=== PATIENT | male | born 1945 | race Caucasian/White ===

== ENCOUNTER 2022-08-15 11:56 | Outpatient (CLI) | payer OTHER, SELFPAY ==
[2022-08-15 22:29] LABS: Albumin* 3.7 g/dL (3.3-5.0); Chloride* 110 mmol/L (96-114); Sodium* 140 mmol/L (135-149)
[2022-08-15 22:32] LABS: Alanine Aminotransferase* 28 U/L (4-50); Alkaline Phosphatase* 66 U/L (40-150); Aspartate Amino Transferase* 29 U/L (12-35); Bilirubin Total* 0.6 mg/dL (0.1-1.5); Blood Urea Nitrogen* 31 mg/dL (7-30); Carbon Dioxide* 20 mmol/L (20-32); Creatinine* 1.1 mg/dL (0.5-1.5); Estimated Glomerular Filt Rate 70 ml/min; Glucose* 104 mg/dL (60-115)
[2022-08-15 22:33] LABS: Calcium* 9.3 mg/dL (8.4-10.6)
== END 2022-08-15 11:57 | disposition home or self-care (01) ==
PROVIDERS: PCP Family Medicine; Visit Provider Family Medicine
DX: E03.9 Hypothyroidism, unspecified (principal); I48.20 Chronic atrial fibrillation, unspecified; R19.7 Diarrhea, unspecified; R79.89 Other specified abnormal findings of blood chemistry
CPT/HCPCS: 80053; 84443

== ENCOUNTER 2022-08-17 11:54 | Outpatient (CLI) | payer OTHER, SELFPAY ==
[2022-08-17 12:21] LABS: C.Difficile NO RESULT (Negative); CDIFFEPI 027 NO RESULT (Negative)
[2022-08-19 20:26] LABS: Lactoferrin, Fecal by ELISA Negative (Negative)
[2022-08-20 01:05] LABS: Ova and Parasite, Fecal Negative (Negative)
[2022-08-22 13:37] LABS: Cryptosporidium by PCR Not Detected; Cyclospora cayetanensis by PCR Not Detected; Dientamoeba fragilis by PCR Not Detected; Entamoeba histolytica by PCR Not Detected; Giardia by PCR Not Detected
== END 2022-08-17 11:55 | disposition home or self-care (01) ==
PROVIDERS: PCP Family Medicine; Visit Provider Family Medicine
DX: R19.7 Diarrhea, unspecified (principal)
CPT/HCPCS: 83630; 87045; 87046; 87077; 87177; 87209; 87425; 87427; 87493; 87505; 87798

== ENCOUNTER 2022-08-20 09:04 | Emergency (ER) | payer OTHER, SELFPAY ==
[2022-08-20 09:10] VITALS: BP 124/71; PULSE 73; RESP 18; TEMP 36.3; O2SAT 98; BMI 27.3
--- NOTE | 2022-08-20 09:28 | CRLHL7_ITS ---
For Patients: As a result of the Century Cures Act, medical imaging exams and procedure reports are released immediately into your electronic medical record. You may view this report before your referring provider. If you have questions, please contact your health care provider. Indication: Shortness of breath Technique: Two-view chest x-ray Comparison: Chest x-ray 05/14/2021 Findings: Normal cardiac mediastinal silhouette. Median sternotomy clips project over the central chest. Opacity of the right lower chest may be a combination of effusion with probable underlying atelectasis and/or consolidation. Dictated by Michelle Mccoy MD @ 08/20/2022 10:41:54 AM (Electronically Signed)
--- NOTE | 2022-08-20 09:30 | ED_ITS ---
HPI - General Adult General Chief complaint: Shortness of Breath/Dyspnea Stated complaint: short of breath after lung transplant Time Seen by Provider: 08/20/22 09:20 History of Present Illness HPI narrative: This 76-year-old male comes in reporting shortness of breath. He states that he began to feel more short of breath over the past couple days. He has been coughing. He has a history of lung transplant which was done about 3 months ago. He is on anticoagulants and anti rejection medications including the steroid. He does not report any fever. He does arrive with normal vital signs. Related Data Home Medications Medication Instructions Recorded Confirmed levothyroxine 125 mcg capsule 125 mcg PO QDAY 03/31/22 08/20/22 sotalol 80 mg tablet 80 mg PO BID 03/31/22 08/20/22 Diabetic Test Strips 08/15/22 08/15/22 apixaban 2.5 mg tablet (Eliquis) 2.5 mg PO BID 08/15/22 08/20/22 cholecalciferol (vitamin D3) 50 50 mcg PO QDAY 08/15/22 08/20/22 mcg (2,000 unit) capsule diabetic supplies, miscellan. 08/15/22 08/15/22 diabetic supplies, miscellan. 08/15/22 08/15/22 guaifenesin 600 mg tablet, 600 mg PO BID 08/15/22 08/20/22 extended release 12 hr (Mucinex) itraconazole 100 mg capsule 200 mg PO BID 08/15/22 08/20/22 magnesium oxide 400 mg (241.3 mg 400 mg PO BID 08/15/22 08/20/22 magnesium) tablet metformin 500 mg tablet,extended 1,000 mg PO DAILY 08/15/22 08/20/22 release 24 hr mycophenolate mofetil 250 mg 750 mg PO BID 08/15/22 08/20/22 capsule (CellCept) prednisone 5 mg tablet 5 mg PO QDAY 08/15/22 08/20/22 sulfamethoxazole 400 1 tab PO QDAY 08/15/22 08/20/22 mg-trimethoprim 80 mg tablet (Bactrim) tacrolimus 0.5 mg capsule, 0.5 mg PO QDAY 08/15/22 08/20/22 immediate-release valganciclovir 450 mg tablet 450 mg PO QDAY 08/15/22 08/20/22 (Valcyte) Previous Rx's Medication Instructions Recorded pantoprazole 40 mg tablet,delayed 40 mg PO QDAY #30 tabs 08/19/22 release rosuvastatin 5 mg tablet 5 mg PO QDAY #90 tabs 08/19/22 acetaminophen 300 mg-codeine 30 mg 1 tab PO Q6H PRN pain #20 tabs 08/20/22 tablet Allergies Allergy/AdvReac Type Severity Reaction Status Date / Time Sulfa (Sulfonamide Allergy Severe unknown Verified 08/20/22 09:16 Antibiotics) sulfamethoxazole Allergy Severe Verified 08/20/22 09:16 [From Sulfamethoxazole-Trimethoprim] ciprofloxacin Allergy Mild Rash Verified 08/20/22 09:16 latex Allergy Unknown Rash Verified 08/20/22 09:16 levofloxacin AdvReac Unknown generalized Verified 08/20/22 09:16 muscle stiffness Review of Systems Status of ROS: Reports: 10 or more systems reviewed and unremarkable except as noted in History and below Narrative: Constitutional: No fevers, no weight gain or loss. Eyes: No discharge. No vision changes. HENT: No congestion, no sore throat, no ear pain. Cardiovascular: No chest pain, no palpitations. Respiratory: Shortness of breath. Frequent coughing. Gastrointestinal: No abdominal pain, no vomiting, no diarrhea. Genitourinary: No dysuria, no hematuria. Musculoskeletal: Normal range of motion. Skin: No rashes, no pruritis. Neurological: No dizziness, weakness, sensory change, speech change. Endo/Heme/Allergies: No bruising or bleeding. No polydipsia. Pysch: no suicidality, no anxiety, no insomnia. All other systems reviewed and are negative. [facility] Medical History (Updated 08/20/22 @ 11:23 by Skyler Contreras MD) Chest pain GERD (gastroesophageal reflux disease) Gout Hepatitis Iatrogenic pneumothorax Knee pain On prednisone therapy Pneumothorax, acute Renal lithiasis Surgical History (Updated 08/20/22 @ 11:23 by Skyler Contreras MD) History of tonsillectomy History of vasectomy Lung transplant recipient S/P blepharoplasty S/P hip replacement Family History (Updated 03/15/22 @ 09:20 by Carl Flores) Father Alcohol abuse Depression Prostate carcinoma Schizophrenia Brother Alcohol abuse Diverticulitis of colon Prostate carcinoma Sister Alcohol abuse Breast cancer Depression Schizophrenia Mother Diabetes Diverticulitis of colon Stroke Social History Smoking Status: Never smoker How often do you have a drink containing alcohol: never AUDIT-C Alcohol total score: 0 Non-prescribed substance use: denies use Exam Narrative: Exam Narrative: Constitutional: Well-developed, well-nourished, no acute distress. HEENT: Normocephalic, atraumatic. Neck: Normal range of motion. Nontender. Supple. Heart: Regular. No murmurs. Normal rate. Intact distal pulses. Lungs: Clear to auscultation. No chest discomfort. No wheezes, rhonchi, or rales. Frequent coughing. Abdomen: Normal bowel sounds. Nontender. No rebound tenderness. Genitalia: Deferred. Back: No midline tenderness. Normal range of motion. Extremities: Normal range of motion. No injury. Skin: Intact. No rash. Warm. No erythema or pallor. Neurologic: No altered sensation. No weakness. Alert and oriented. Psychiatric: No suicidality. No anxiety or depression. No insomnia. Nursing notes and vitals signs are reviewed. Const: Vital Signs, click to edit/add: Vital Signs - 24 hr 08/20/22 09:10 08/20/22 10:28 Temperature 97.3 F L Pulse Rate [Right Pulse Oximeter] 73 Respiratory Rate 18 22 Blood Pressure [Ri ght Upper Arm] 124/71 Pulse Oximetry 98 96 Oxygen Delivery Me thod Room Air Room Air Course Vital Signs Vital signs: Initial Vital Signs Temperature 97.3 F L 08/20/22 09:10 Temperature Source Temporal Artery Scan 08/20/22 09:10 Pulse Rate 73 08/20/22 09:10 Respiratory Rate 18 08/20/22 09:10 Blood Pressure 124/71 08/20/22 09:10 Blood Pressure Mean 88 08/20/22 09:10 Blood Pressure Position Sitting 08/20/22 09:10 Pulse Oximetry 98 08/20/22 09:10 Oxygen Delivery Method 08/20/22 09:10 Vital Signs Temperature 97.3 F L 08/20/22 09:10 Pulse Rate 73 08/20/22 09:10 Respiratory Rate 18 08/20/22 09:10 Blood Pressure 124/71 08/20/22 09:10 Pulse Oximetry 98 08/20/22 09:10 Oxygen Delivery Method 08/20/22 09:10 Temperature 97.3 F L 08/20/22 09:10 Pulse Rate 73 08/20/22 09:10 Respiratory Rate 22 08/20/22 10:28 Blood Pressure 124/71 08/20/22 09:10 Pulse Oximetry 96 08/20/22 10:28 Oxygen Delivery Method 08/20/22 10:28 Medical Decision Making MDM Narrative Medical decision making narrative: This patient comes in with cough symptoms over the past day or 2. He had bilateral lung transplant because of pulmonary fibrosis. This transplant occurred about 3 months ago. Today his vital signs are in normal range. His heart rate is 61 beats per minute and his oximetry on room air is at 97%. He is not using accessory muscles for breathing but does have frequent coughing. He does use CPAP at night. EKG and troponin results returned normal. Lab results show hemoglobin at 9.8. Testing for COVID, influenza, and RSV returned negative. Chest x-ray does show some edema in the right lower lung. I advised the patient to follow-up with his pulmonary team in this regard. He did receive a prescription for Tylenol 3 for cough suppressant benefit. Lab Data Labs: Lab Results 08/20/22 08/20/22 08/20/22 Range/Units 09:23 09:29 09:42 WBC 9.30 (4.50-11.00) K/uL RBC 3.22 L (4.30-5.90) m/uL Hgb 9.8 L (13.5-17.5) gm/dL Hct 30.7 L (37.0-53.0) % MCV 95 (80-100) fL MCH 30 (26-34) pg MCHC 32 (32-36) gm/dL RDW Coeff of Hilaria 14.7 (11.5-15.5) % Plt Count 189 (140-440) K/uL Neut % (Auto) 77.4 H (42.0-72.0) % Lymph % (Auto) 5.6 L (20-44) % [place] % (Auto) 8.7 (0.0-11.0) % Eos % (Auto) 1.2 (0.0-7.0) % Baso % (Auto) 0.6 (0.0-3.0) % Neut # (Auto) 7.20 H (1.7-7.0) K/uL Lymph # (Auto) 0.50 L (0.90-2.90) K/uL [place] # (Auto) 0.80 (0.00-0.90) K/UL Eos # (Auto) 0.11 (0.00-0.50) K/uL Baso # (Auto) 0.06 (0.00-0.30) K/uL Abs Immat Gran (auto) 0.60 H (0.00-0.30) K/uL Imm/Tot Granulo (auto) 6.5 % Sodium (135-149) mmol/L Potassium (3.6-5.1) mmol/L Chloride (96-114) mmol/L Carbon Dioxide (20-32) mmol/L BUN (7-30) mg/dL Creatinine (0.5-1.5) mg/dL Estimated Creat Clear Estimated GFR ml/min Glucose (60-115) mg/dL Calcium (8.4-10.6) mg/dL C-Reactive Protein (0.5-1.0) mg/dL SARS-CoV-2 (PCR) Negative SARS-CoV-2 (Negative) Influenza Type A (PCR) Negative PCR FLU A (Negative) Influenza Type B (PCR) Negative PCR FLU B (Negative) RSV (PCR) Negative PCR RSV (Negative) POC Troponin I 0.01 (0.01-0.04) ng/ml 08/20/22 Range/Units 09:42 WBC (4.50-11.00) K/uL RBC (4.30-5.90) m/uL Hgb (13.5-17.5) gm/dL Hct (37.0-53.0) % MCV (80-100) fL MCH (26-34) pg MCHC (32-36) gm/dL RDW Coeff of Hilaria (11.5-15.5) % Plt Count (140-440) K/uL Neut % (Auto) (42.0-72.0) % Lymph % (Auto) (20-44) % [place] % (Auto) (0.0-11.0) % Eos % (Auto) (0.0-7.0) % Baso % (Auto) (0.0-3.0) % Neut # (Auto) (1.7-7.0) K/uL Lymph # (Auto) (0.90-2.90) K/uL [place] # (Auto) (0.00-0.90) K/UL Eos # (Auto) (0.00-0.50) K/uL Baso # (Auto) (0.00-0.30) K/uL Abs Immat Gran (auto) (0.00-0.30) K/uL Imm/Tot Granulo (auto) % Sodium 139 (135-149) mmol/L Potassium 4.5 (3.6-5.1) mmol/L Chloride 111 (96-114) mmol/L Carbon Dioxide 22 (20-32) mmol/L BUN 31 H (7-30) mg/dL Creatinine 1.2 (0.5-1.5) mg/dL Estimated Creat Clear 55.76 Estimated GFR 63 ml/min Glucose 89 (60-115) mg/dL Calcium 8.7 (8.4-10.6) mg/dL C-Reactive Protein 0.7 (0.5-1.0) mg/dL SARS-CoV-2 (PCR) (Negative) Influenza Type A (PCR) (Negative) Influenza Type B (PCR) (Negative) RSV (PCR) (Negative) POC Troponin I (0.01-0.04) ng/ml Imaging Data Chest x-ray: Radiologist's impression: Normal cardiac mediastinal silhouette. Median sternotomy clips project over the central chest. Opacity of the right lower chest may be a combination of effusion with probable underlying atelectasis and/or consolidation. ECG Data Attestation: I personally reviewed and interpreted this ECG as follows: Interpretation: Normal sinus rhythm. Rate is 61 beats per minute. There are no ST or T-wave abnormalities. Discharge Plan Discharge Clinical Impression: Cough, Lung transplant recipient Patient Disposition: Home, Self-Care Condition: Unchanged Additional Instructions: Take medication as needed and indicated. Follow up with primary physician or pulmonology team. Return if worsening. Prescriptions: New acetaminophen-codeine 300-30 mg tablet 1 tab PO Q6H PRN (Reason: pain) Qty: 20 0RF No Action levothyroxine 125 mcg capsule 125 mcg PO QDAY sotalol 80 mg tablet 80 mg PO BID metformin 500 mg tablet extended release 24 hr 1,000 mg PO DAILY (DME) Diabetic Test Strips Misc See Rx Instructions .ROUTE Rx Instructions: As directed (DME) diabetic supplies, miscellan. Misc See Rx Instructions .ROUTE Rx Instructions: As directed (DME) diabetic supplies, miscellan. Misc See Rx Instructions .ROUTE Rx Instructions: As directed sulfamethoxazole-trimethoprim [Bactrim] 400-80 mg tablet 1 tab PO QDAY mycophenolate mofetil [CellCept] 250 mg capsule 750 mg PO BID Eliquis 2.5 mg tablet 2.5 mg PO BID itraconazole 100 mg capsule 200 mg PO BID Rx Instructions: must administer with a meal/food magnesium oxide 400 mg (241.3 mg magnesium) tablet 400 mg PO BID prednisone 5 mg tablet 5 mg PO QDAY guaifenesin [Mucinex] 600 mg tablet extended release 12hr 600 mg PO BID cholecalciferol (vitamin D3) 50 mcg (2,000 unit) capsule 50 mcg PO QDAY tacrolimus 0.5 mg capsule 0.5 mg PO QDAY valganciclovir [Valcyte] 450 mg tablet 450 mg PO QDAY rosuvastatin 5 mg tablet 5 mg PO QDAY Qty: 90 3RF pantoprazole 40 mg tablet,delayed release (DR/EC) 40 mg PO QDAY Qty: 30 12RF Follow Up/Referrals: Bryce Hicks MD [Primary Care Provider] - Stand Alone Forms: [address] [facility] Info Instructions
[2022-08-20 09:57] LABS: Basophils Absolute Auto 0.06 K/uL (0.00-0.30); Basophils Percent Auto 0.6 % (0.0-3.0); Eosinophils Absolute Auto 0.11 K/uL (0.00-0.50); Eosinophils Percent Auto 1.2 % (0.0-7.0); Hematocrit 30.7 % (37.0-53.0); Hemoglobin* 9.8 gm/dL (13.5-17.5); Immature Granulocytes Pct Auto 6.5 %; Lymphocytes Percent Auto 5.6 % (20-44); Mean Corpuscular HGB Conc 32 gm/dL (32-36); Mean Corpuscular Hemoglobin 30 pg (26-34); Mean Corpuscular Volume 95 fL (80-100); Monocytes Percent Auto 8.7 % (0.0-11.0); Neutrophils Percent Auto 77.4 % (42.0-72.0); Platelet Count* 189 K/uL (140-440); RDW Coefficient of Variation % 14.7 % (11.5-15.5); Red Blood Count 3.22 m/uL (4.30-5.90)
[2022-08-20 10:00] LABS: Troponin, Point-of-Care* 0.01 ng/ml (0.01-0.04)
[2022-08-20 10:04] LABS: Slide Review Reflex No
[2022-08-20 10:12] LABS: Chloride* 111 mmol/L (96-114)
[2022-08-20 10:13] LABS: Potassium* 4.5 mmol/L (3.6-5.1); Sodium* 139 mmol/L (135-149)
[2022-08-20 10:15] LABS: Creatinine* 1.2 mg/dL (0.5-1.5); Est. Creatinine Clearance* 55.76; Estimated Glomerular Filt Rate 63 ml/min
[2022-08-20 10:16] LABS: PCR FLU A Negative PCR FLU A (Negative); PCR FLU B Negative PCR FLU B (Negative); PCR RSV Negative PCR RSV (Negative)
[2022-08-20 10:16] LABS: Blood Urea Nitrogen* 31 mg/dL (7-30); Calcium* 8.7 mg/dL (8.4-10.6); Carbon Dioxide* 22 mmol/L (20-32); Glucose* 89 mg/dL (60-115)
[2022-08-20 10:19] LABS: C Reactive Protein* 0.7 mg/dL (0.5-1.0)
[2022-08-20 10:20] LABS: SARS PCR* Negative SARS-CoV-2 (Negative)
[2022-08-20 10:28] VITALS: RESP 22; O2SAT 96
== END 2022-08-20 11:49 | disposition home or self-care (01) ==
PROVIDERS: Emergency Provider Emergency Medicine Emergency Medical Services; PCP Family Medicine
DX: R05.9 Cough, unspecified (principal); Z94.2 Lung transplant status
CPT/HCPCS: 36415; 71046; 80048; 84484; 85025; 86140; 87502; 87634; 87635; 93005; 99284; 99285

== ENCOUNTER 2023-04-04 11:48 | Outpatient (CLI) | payer OTHER, SELFPAY | END 2023-04-04 11:49 | disposition home or self-care (01) | LOC: NFLDREF 04-05 06:30 | PROVIDERS: PCP Family Medicine; Referring Provider Family Medicine; Visit Provider Family Medicine | DX: E87.1 Hypo-osmolality and hyponatremia (principal); E11.9 Type 2 diabetes mellitus without complications; I10 Essential (primary) hypertension; N28.9 Disorder of kidney and ureter, unspecified; Z94.2 Lung transplant status | CPT/HCPCS: 82043; 82570 ==

== ENCOUNTER 2023-04-18 08:25 | Outpatient (CLI) | payer OTHER, SELFPAY | END 2023-04-18 08:26 | disposition home or self-care (01) | LOC: NFLDREF 04-19 14:48 | PROVIDERS: PCP Family Medicine; Referring Provider Family Medicine; Visit Provider Family Medicine | DX: N28.9 Disorder of kidney and ureter, unspecified (principal) | CPT/HCPCS: 80048 ==

== ENCOUNTER 2023-05-21 17:39 | Emergency (ER) | payer OTHER, SELFPAY ==
[2023-05-21 17:57] VITALS: BP 163/83; PULSE 56; RESP 20; TEMP 36.3; O2SAT 98; BMI 27.5
[2023-05-21 19:52] VITALS: BP 145/78; PULSE 62; RESP 20; TEMP 36.9; O2SAT 98
[2023-05-21 19:53] VITALS: BP 145/78; PULSE 62; RESP 20; TEMP 36.9
--- NOTE | 2023-05-22 02:31 | ED_ITS ---
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 Patient reports that he has a history of diabetes for the past couple of years. It sounds like he had been on metformin for blood sugar control prior to his lung transplant surgery. After that he had been on insulin as well. Sounds like for the past several months he has been doing very well from controlling his blood sugars so has been off all medications. Last week on Monday he was down at [facility] to have surgery on his vocal cords. He had operation Monday and was discharged on . He was apparently noted to developed hyperglycemia in the hospital after his surgery. He was told by his surgeons to monitor his sugar carefully because his surgery would heal well if he had uncontrolled hyperglycemia. He feels like his neck incision has been healing well. His voice is still somewhat hoarse, as he is told to expect while he is feeling from surgery. He has not had any fever or other infections. No swelling or redness of his neck incision. He has been monitoring his blood sugar this weekend it has been ranging in the 2-300 range. Today it went up to 440. He is basically feeling fine other than he has a little bit dizzy and he has been noticing some polyuria. He contact his doctors at [facility] and they told him to come here to the ER tonight to get his blood sugar down. No other infection symptoms. No abdominal pain. No vomiting diarrhea. No cough. Related Data Home Medications Medication Instructions Recorded Confirmed levothyroxine 125 mcg capsule 125 mcg PO QDAY 03/31/22 04/04/23 apixaban 2.5 mg tablet (Eliquis) 2.5 mg PO BID 08/15/22 04/04/23 cholecalciferol (vitamin D3) 50 50 mcg PO QDAY 08/15/22 04/04/23 mcg (2,000 unit) capsule guaifenesin 600 mg tablet, 600 mg PO BID 08/15/22 04/04/23 extended release 12 hr (Mucinex) itraconazole 100 mg capsule 200 mg PO BID 08/15/22 04/04/23 prednisone 5 mg tablet 5 mg PO QDAY 08/15/22 04/04/23 sulfamethoxazole 400 1 tab PO QDAY 08/15/22 04/04/23 mg-trimethoprim 80 mg tablet (Bactrim) tacrolimus 0.5 mg capsule, 0.5 mg PO QDAY 08/15/22 04/04/23 immediate-release acetaminophen 500 mg tablet 1,000 mg PO Q6H PRN 09/14/22 04/04/23 furosemide 20 mg tablet 20 mg PO QDAY 09/14/22 04/04/23 azathioprine 100 mg tablet 200 mg PO QDAY 04/04/23 04/04/23 azithromycin 250 mg tablet 250 mg PO 3XW 04/04/23 04/04/23 cephalexin 500 mg capsule 2,000 mg PO ONCE prior to dental 04/04/23 04/04/23 appointment magnesium oxide 400 mg (241.3 mg 400 mg PO BID 04/04/23 04/04/23 magnesium) tablet sotalol 80 mg tablet 80 mg PO QDAY 04/04/23 04/04/23 Previous Rx's Medication Instructions Recorded pantoprazole 40 mg tablet,delayed 40 mg PO QDAY #30 tabs 08/19/22 release rosuvastatin 5 mg tablet 5 mg PO QDAY #90 tabs 08/19/22 Allergies Allergy/AdvReac Type Severity Reaction Status Date / Time Sulfa (Sulfonamide Allergy Severe unknown Verified 04/04/23 11:15 Antibiotics) sulfamethoxazole Allergy Severe Verified 04/04/23 11:15 [From Sulfamethoxazole-Trimethoprim] ciprofloxacin Allergy Mild Rash Verified 04/04/23 11:15 latex Allergy Unknown Rash Verified 04/04/23 11:15 levofloxacin AdvReac Unknown generalized Verified 04/04/23 11:15 muscle stiffness [facility] Medical History Renal insufficiency, mild ?N28.9 - Disorder of kidney and ureter, unspecified (ICD-10) Elevated liver function tests ?R79.89 - Other specified abnormal findings of blood chemistry (ICD-10) Pneumonia ?J18.9 - Pneumonia, unspecified organism (ICD-10) Physical deconditioning ?R53.81 - Other malaise (ICD-10) 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) ?K75.9 - Inflammatory liver disease, unspecified (ICD-10) Fibrosis of lung ?J84.10 - Pulmonary fibrosis, unspecified (ICD-10) Chest pain ?R07.9 - Chest pain, unspecified (ICD-10) Calculus of kidney (04/09/13) ?N20.0 - Calculus of kidney (ICD-10) GERD (gastroesophageal reflux disease) ?K21.9 - Gastro-esophageal reflux disease without esophagitis (ICD-10) Pneumothorax, acute ?J93.83 - Other pneumothorax (ICD-10) Iatrogenic pneumothorax ?J95.811 - Postprocedural pneumothorax (ICD-10) Pulmonary fibrosis ?J84.10 - Pulmonary fibrosis, unspecified (ICD-10) On prednisone therapy ?Z79.52 - team primary care physician (current) use of systemic steroids (ICD-10) Acute respiratory failure with hypoxia ?J96.01 - Acute respiratory failure with hypoxia (ICD-10) Gout ?M10.9 - Gout, unspecified (ICD-10) Renal lithiasis ?N20.0 - Calculus of kidney (ICD-10) Knee pain ?M25.569 - Pain in unspecified knee (ICD-10) Hepatitis ?K75.9 - Inflammatory liver disease, unspecified (ICD-10) Surgical History Lung transplant recipient ?Z94.2 - Lung transplant status (ICD-10) History of vasectomy ?Z98.52 - Vasectomy status (ICD-10) History of tonsillectomy ?Z90.89 - Acquired absence of other organs (ICD-10) S/P hip replacement ?Z96.649 - Presence of unspecified artificial hip joint (ICD-10) S/P blepharoplasty ?Z98.890 - Other specified postprocedural states (ICD-10) Family History (Updated 03/15/22 @ 09:20 by Carl Flores) Father Alcohol abuse Depression Prostate carcinoma Schizophrenia Brother Alcohol abuse Diverticulitis of colon Prostate carcinoma Sister Alcohol abuse Breast cancer Depression Schizophrenia Mother Diabetes Diverticulitis of colon Stroke Social History Smoking Status: Never smoker Second hand tobacco smoke exposure: No How often do you have a drink containing alcohol: never How often do you have six or more drinks on one occasion: Never AUDIT-C Alcohol total score: 0 Non-prescribed substance use: denies use Exam Narrative: Exam Narrative: Constitutional: Appears well-developed and well-nourished. Alert. Conversant. Non toxic. HENT: Head: Atraumatic. Nose: Nose normal. Mouth/Throat: Oral mucosa is clear and moist. no trismus. Voice is mildly hoarse. Pharynx normal. Tonsils symmetric. No tonsillar enlargement, erythema, or exudate. Eyes: Conjunctivae normal. EOM normal. Pupils equal, round, and reactive to light. No scleral icterus. Neck: Healing horizontal anterior neck incision. Incision looks very good. No redness. No swelling. Normal range of motion. Neck supple. No tracheal deviation present. Cardiovascular: Normal rate, regular rhythm. No gallop. No friction rub. No murmur heard. Symmetric radial artery pulses Pulmonary/Chest: Effort normal. No stridor. No respiratory distress. No wheezes. No rales. No rhonchi . No tenderness. Abdominal: Soft. Bowel sounds normal. No distension. No mass. No tenderness. No rebound. No guarding. Musculoskeletal: RUE: Normal range of motion. No tenderness. No deformity LUE: Normal range of motion. No tenderness. No deformity RLE: Normal range of motion. No edema. No tenderness. No deformity LLE: Normal range of motion. No edema. No tenderness. No deformity Neurological: Alert and oriented to person, place, and time. Normal strength. CN II-VII intact. No sensory deficit. GCS eye subscore is 4. GCS verbal subscore is 5. GCS motor subscore is 6. Normal coordination Skin: Skin is warm and dry. No rash noted. No pallor. Normal capillary refill. Psychiatric: Normal mood. Normal affect. Const: Vital Signs, click to edit/add: Vital Signs - 24 hr 05/21/23 17:57 05/21/23 19:52 05/21/23 19:53 Temperature 97.4 F L 98.5 F 98.5 F Pulse Rate [Pulse Oximeter] 56 L 62 62 Respiratory Rate 20 20 20 Blood Pressure [Ri ght Upper Arm] 163/83 H 145/78 H 145/78 H Pulse Oximetry 98 98 Oxygen Delivery Me thod Room Air Room Air Course Vital Signs Vital signs: Initial Vital Signs Temperature 97.4 F L 05/21/23 17:57 Temperature Source Temporal Artery Scan 05/21/23 17:57 Pulse Rate 56 L 05/21/23 17:57 Respiratory Rate 20 05/21/23 17:57 Blood Pressure 163/83 H 05/21/23 17:57 Blood Pressure Mean 109 H 05/21/23 17:57 Blood Pressure Position Sitting 05/21/23 17:57 Pulse Oximetry 98 05/21/23 17:57 Oxygen Delivery Method Room Air 05/21/23 17:57 Vital Signs Temperature 97.4 F L 05/21/23 17:57 Pulse Rate 56 L 05/21/23 17:57 Respiratory Rate 20 05/21/23 17:57 Blood Pressure 163/83 H 05/21/23 17:57 Pulse Oximetry 98 05/21/23 17:57 Oxygen Delivery Method Room Air 05/21/23 17:57 Temperature 98.5 F 05/21/23 19:53 Pulse Rate 62 05/21/23 19:53 Respiratory Rate 05/21/23 19:53 Blood Pressure 145/78 H 05/21/23 19:53 Pulse Oximetry 98 05/21/23 19:52 Oxygen Delivery Method Room Air 05/21/23 19:52 Medical Decision Making MDM Narrative Medical decision making narrative: This is a very pleasant 77-year-old male who presents to the ER today concerned for hyperglycemia. He has a history of diabetes in the past but sounds like he has been off his metformin all of his insulin for the past several months be cause his sugars have been very well controlled. He has been noted to have hyperglycemia since last when he was at surgery at [facility] for vocal cord repair. He was hyperglycemic on his home glucometer today with sugar up to 440 and was told to come here to the ER because of the height of his sugar. Here in the ER he is well-appearing. He is not febrile. No clear evidence for an infection causing his hyperglycemia. He is not on any steroids (despite history of lung transplant). Because of the hyperglycemia unclear. Could be related to physiologic stress from the recent surgery. No clear infection or other trigger for hyperglycemia. Discussed with the patient that this degree of hyperglycemia could be associated with other metabolic problems such as DKA or nonketotic hyperosmolar syndrome. I recommended lab workup and insulin administration here in the ER to make sure the hyperglycemia was correcting prior to discharge. The patient politely but firmly declined my recommendation. He would prefer just to get a dose of insulin go home. He understands the risks of DKA and other conditions. Therefore we administered 10 units of regular insulin subcutaneously here in the ER. He will use his glucometer check his sugar every 2 hours for the next 6 hours. He plans to follow-up with his primary care provider and his surgical team at [place] for his ongoing diabetes management beginning tomorrow. He is invited to return to the ER if any concerns develop. Discussed the risks of hypoglycemia from his insulin. Discharge Plan Discharge Clinical Impression: Hyperglycemia Patient Disposition: Home, Self-Care Condition: Stable Instructions: Diabetic Hyperglycemia (ED) Additional Instructions: You received a dose of insulin here in the ER tonight. This should may cause her blood pressure to drop. Please monitor your blood sugar every 2 hours for the next 6 hours. If you develop blood sugar less than 80 or symptoms of low blood pressure such as worsening dizziness, confusion, lightheadedness, drink juice or consume sugar and call 911 to return to the ER immediately. Please follow-up with your regular doctor or your team at [facility] tomorrow for ongoing blood sugar management. If you have any other problems, you can come back to the ER right away. Prescriptions: No Action levothyroxine 125 mcg capsule 125 mcg PO QDAY sulfamethoxazole-trimethoprim [Bactrim] 400-80 mg tablet 1 tab PO QDAY Eliquis 2.5 mg tablet 2.5 mg PO BID itraconazole 100 mg capsule 200 mg PO BID Rx Instructions: must administer with a meal/food prednisone 5 mg tablet 5 mg PO QDAY guaifenesin [Mucinex] 600 mg tablet extended release 12hr 600 mg PO BID cholecalciferol (vitamin D3) 50 mcg (2,000 unit) capsule 50 mcg PO QDAY tacrolimus 0.5 mg capsule 0.5 mg PO QDAY sotalol 80 mg tablet 80 mg PO QDAY azathioprine 100 mg tablet 200 mg PO QDAY azithromycin 250 mg tablet 250 mg PO 3XW Patient Comments: MWF cephalexin 500 mg capsule 2,000 mg PO ONCE rosuvastatin 5 mg tablet 5 mg PO QDAY Qty: 90 3RF pantoprazole 40 mg tablet,delayed release (DR/EC) 40 mg PO QDAY Qty: 30 12RF furosemide 20 mg tablet 20 mg PO QDAY acetaminophen 500 mg tablet 1,000 mg PO Q6H PRN Patient Comments: for pain 1-11/18, headache, fever magnesium oxide 400 mg (241.3 mg magnesium) tablet 400 mg PO BID Follow Up/Referrals: Bryce Hicks MD [Primary Care Provider] - Stand Alone Forms: [employer] Info Instructions
== END 2023-05-21 19:53 | disposition home or self-care (01) ==
LOC: ED 19:43
PROVIDERS: Emergency Provider Emergency Medicine; PCP Family Medicine
DX: E11.65 Type 2 diabetes mellitus with hyperglycemia (principal)
CPT/HCPCS: 82962; 96372; 99283; 99284

== ENCOUNTER 2023-05-23 11:49 | Outpatient (CLI) | payer OTHER, SELFPAY | END 2023-05-23 11:50 | disposition home or self-care (01) | LOC: LKVREF 11:50 | PROVIDERS: PCP Family Medicine; Visit Provider Family Medicine | DX: E03.9 Hypothyroidism, unspecified (principal); R73.9 Hyperglycemia, unspecified; E78.00 Pure hypercholesterolemia, unspecified; E87.1 Hypo-osmolality and hyponatremia | CPT/HCPCS: 84443 ==

== ENCOUNTER 2023-06-23 08:58 | Outpatient (CLI) | payer OTHER, SELFPAY | END 2023-06-23 08:59 | disposition home or self-care (01) | LOC: NFLDREF 06-29 11:10 | PROVIDERS: PCP Family Medicine; Referring Provider Family Medicine; Visit Provider Family Medicine | DX: E11.9 Type 2 diabetes mellitus without complications (principal); D64.9 Anemia, unspecified | CPT/HCPCS: 80053; 83735 ==

== ENCOUNTER 2023-07-03 17:42 | Emergency (ER) | payer OTHER, SELFPAY ==
[2023-07-03 18:06] VITALS: BP 144/80; PULSE 65; RESP 18; TEMP 36.4; O2SAT 99
--- NOTE | 2023-07-03 18:17 | ED.GENADULT ---
HPI - General Adult General Time Seen by Provider: 18:17 Date Seen: 07/03/23 Chief complaint: Edema Stated complaint: Swelling in jaw Time Seen by Provider: 07/03/23 18:18 Source: patient, family, RN notes reviewed and old records reviewed Mode of arrival: ambulatory Limitations: no limitations History of Present Illness HPI narrative: 77-year-old male who comes in today with swelling and left jaw starting this evening. No pain, no fever, no trauma. History of lung transplant on tacrolimus. Related Data Home Medications Medication Instructions Recorded Confirmed levothyroxine 125 mcg capsule 125 mcg PO QDAY 03/31/22 06/29/23 apixaban 2.5 mg tablet (Eliquis) 2.5 mg PO BID 08/15/22 06/29/23 cholecalciferol (vitamin D3) 50 50 mcg PO QDAY 08/15/22 06/29/23 mcg (2,000 unit) capsule guaifenesin 600 mg tablet, 600 mg PO BID 08/15/22 06/29/23 extended release 12 hr (Mucinex) sulfamethoxazole 400 1 tab PO QDAY 08/15/22 06/29/23 mg-trimethoprim 80 mg tablet (Bactrim) acetaminophen 500 mg tablet 1,000 mg PO Q6H PRN 09/14/22 06/29/23 azathioprine 100 mg tablet 200 mg PO QDAY 04/04/23 06/29/23 azithromycin 250 mg tablet 250 mg PO 3XW 04/04/23 06/29/23 cephalexin 500 mg capsule 2,000 mg PO ONCE prior to dental 04/04/23 06/29/23 appointment magnesium oxide 400 mg (241.3 mg 400 mg PO BID 04/04/23 06/29/23 magnesium) tablet sotalol 80 mg tablet 80 mg PO QDAY 04/04/23 06/29/23 prednisone 5 mg tablet 15 mg PO QDAY 06/29/23 06/29/23 tacrolimus 0.5 mg capsule, 2.5 mg PO BID 06/29/23 06/29/23 immediate-release Previous Rx's Medication Instructions Recorded pantoprazole 40 mg tablet,delayed 40 mg PO QDAY #30 tabs 08/19/22 release rosuvastatin 5 mg tablet 5 mg PO QDAY #90 tabs 08/19/22 blood sugar diagnostic (Accu-Chek #200 ea 05/23/23 Guide test strips) insulin NPH isoph U-100 human 100 10 - 15 unit (0.1 - 0.15 mL) 05/23/23 unit/mL (3 mL) subcutaneous pen subcut BID #15 mL (Humulin N NPH U-100 Insulin KwikPen) metformin 750 mg tablet,extended 750 mg PO QDAY #90 tabs 05/23/23 release 24 hr losartan 25 mg tablet 25 mg PO QDAY #90 tabs 06/29/23 amoxicillin 500 mg-potassium 1 tab PO TID #15 tabs 07/03/23 clavulanate 125 mg tablet (Augmentin) Allergies Allergy/AdvReac Type Severity Reaction Status Date / Time Sulfa (Sulfonamide Allergy Severe unknown Verified 06/29/23 09:23 Antibiotics) sulfamethoxazole Allergy Severe Verified 06/29/23 09:23 [From Sulfamethoxazole-Trimethoprim] ciprofloxacin Allergy Mild Rash Verified 06/29/23 09:23 latex Allergy Unknown Rash Verified 06/29/23 09:23 levofloxacin AdvReac Unknown generalized Verified 06/29/23 09:23 muscle stiffness [facility] Medical History (Updated 07/03/23 @ 18:36 by Parish Johns MD) Chest wall pain following surgery ?R07.89 - Other chest pain (ICD-10) ?G89.18 - Other acute postprocedural pain (ICD-10) Renal insufficiency, mild ?N28.9 - Disorder of kidney and ureter, unspecified (ICD-10) Elevated liver function tests ?R79.89 - Other specified abnormal findings of blood chemistry (ICD-10) Pneumonia ?J18.9 - Pneumonia, unspecified organism (ICD-10) Physical deconditioning ?R53.81 - Other malaise (ICD-10) 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) ?K75.9 - Inflammatory liver disease, unspecified (ICD-10) Fibrosis of lung ?J84.10 - Pulmonary fibrosis, unspecified (ICD-10) Chest pain ?R07.9 - Chest pain, unspecified (ICD-10) Calculus of kidney (04/09/13) ?N20.0 - Calculus of kidney (ICD-10) GERD (gastroesophageal reflux disease) ?K21.9 - Gastro-esophageal reflux disease without esophagitis (ICD-10) Pneumothorax, acute ?J93.83 - Other pneumothorax (ICD-10) Iatrogenic pneumothorax ?J95.811 - Postprocedural pneumothorax (ICD-10) Pulmonary fibrosis ?J84.10 - Pulmonary fibrosis, unspecified (ICD-10) On prednisone therapy ?Z79.52 - senior care (current) use of systemic steroids (ICD-10) Acute respiratory failure with hypoxia ?J96.01 - Acute respiratory failure with hypoxia (ICD-10) Gout ?M10.9 - Gout, unspecified (ICD-10) Renal lithiasis ?N20.0 - Calculus of kidney (ICD-10) Knee pain ?M25.569 - Pain in unspecified knee (ICD-10) Hepatitis ?K75.9 - Inflammatory liver disease, unspecified (ICD-10) Surgical History Lung transplant recipient ?Z94.2 - Lung transplant status (ICD-10) History of vasectomy ?Z98.52 - Vasectomy status (ICD-10) History of tonsillectomy ?Z90.89 - Acquired absence of other organs (ICD-10) S/P hip replacement ?Z96.649 - Presence of unspecified artificial hip joint (ICD-10) S/P blepharoplasty ?Z98.890 - Other specified postprocedural states (ICD-10) Family History (Updated 03/15/22 @ 09:20 by Carl Flores) Father Alcohol abuse Depression Prostate carcinoma Schizophrenia Brother Alcohol abuse Diverticulitis of colon Prostate carcinoma Sister Alcohol abuse Breast cancer Depression Schizophrenia Mother Diabetes Diverticulitis of colon Stroke Social History Smoking Status: Never smoker Second hand tobacco smoke exposure: No How often do you have a drink containing alcohol: never How often do you have six or more drinks on one occasion: Never AUDIT-C Alcohol total score: 0 Non-prescribed substance use: denies use Exam Narrative: Exam Narrative: General: well nourished , NAD Head: Atraumatic and normocephalic ENT: External ears and external nose are normal. Nontender, non erythematous swelling behind the angle of the mandible and just inferior to the angle. No trismus, no intraoral or posterior pharyngeal swelling. Eyes: Conjunctiva clear, pupils are equal reactive, external ocular motions are intact Neck: Full spontaneous range of motion of the neck Lungs: No respiratory distress Musculoskeletal: No tenderness or deformity Neurologic: No gross focal neurologic deficits Skin: No rashes Psych: Mood and affect are appropriate Const: Vital Signs, click to edit/add: Vital Signs - 24 hr 07/03/23 18:06 Temperature 97.6 F Pulse Rate [Right Pulse Oximeter] 65 Respiratory Rate 18 Blood Pressure [Ri ght Upper Arm] 144/80 H Pulse Oximetry 99 Oxygen Delivery Me thod Room Air Course Course ED Course: Patient seen examined, prior records reviewed. Patient with pain with swelling along the angle of the mandible on the left consistent with parotitis. No inflammation or tenderness to suggest acute infection or abscess, no salivary stone palpated or visualized. Discussed diagnosis and plan, patient will be started on Augmentin for prophylaxis given his immune compromise status, follow-up with ENT. Vital Signs Vital signs: Initial Vital Signs Temperature 97.6 F 07/03/23 18:06 Temperature Source Temporal Artery Scan 07/03/23 18:06 Pulse Rate 65 07/03/23 18:06 Pulse Rhythm Regular 07/03/23 18:06 Pulse Strength 3+ Normal 07/03/23 18:06 Respiratory Rate 18 07/03/23 18:06 Blood Pressure 144/80 H 07/03/23 18:06 Blood Pressure Mean 101 07/03/23 18:06 Blood Pressure Position Sitting 07/03/23 18:06 Pulse Oximetry 99 07/03/23 18:06 Oxygen Delivery Method Room Air 07/03/23 18:06 Vital Signs Temperature 97.6 F 07/03/23 18:06 Pulse Rate 65 07/03/23 18:06 Respiratory Rate 18 07/03/23 18:06 Blood Pressure 144/80 H 07/03/23 18:06 Pulse Oximetry 99 07/03/23 18:06 Oxygen Delivery Method Room Air 07/03/23 18:06 Temperature 97.6 F 07/03/23 18:06 Pulse Rate 65 07/03/23 18:06 Respiratory Rate 18 07/03/23 18:06 Blood Pressure 144/80 H 07/03/23 18:06 Pulse Oximetry 99 07/03/23 18:06 Oxygen Delivery Method Room Air 07/03/23 18:06 Discharge Plan Discharge Clinical Impression: Acute parotitis Patient Disposition: Home, Self-Care Condition: Stable Instructions: Parotid Duct Obstruction (ED), Sialoadenitis (ED) Additional Instructions: Take antibiotics as prescribed. You were given your 1st dose in the emergency department, you can take your 2nd dose tomorrow morning. You do not need to take your Keflex before seeing the dentist. A prescription was sent to her pharmacy, you do not need to pick this up as you are feeling your prescription from the emergency department today. Follow-up with ENT this week or next week Activity Level: Activity as Tolerated Discharge Diet: Regular Prescriptions: New amoxicillin-pot clavulanate [Augmentin] 500-125 mg tablet 1 tab PO TID Qty: 15 0RF No Action levothyroxine 125 mcg capsule 125 mcg PO QDAY sulfamethoxazole-trimethoprim [Bactrim] 400-80 mg tablet 1 tab PO QDAY Eliquis 2.5 mg tablet 2.5 mg PO BID guaifenesin [Mucinex] 600 mg tablet extended release 12hr 600 mg PO BID cholecalciferol (vitamin D3) 50 mcg (2,000 unit) capsule 50 mcg PO QDAY prednisone 5 mg tablet 15 mg PO QDAY tacrolimus 0.5 mg capsule 2.5 mg PO BID sotalol 80 mg tablet 80 mg PO QDAY azathioprine 100 mg tablet 200 mg PO QDAY azithromycin 250 mg tablet 250 mg PO 3XW Patient Comments: MWF cephalexin 500 mg capsule 2,000 mg PO ONCE (DME) Accu-Chek Guide test strips Strip See Rx Instructions .Route Qty: 200 2RF Rx Instructions: qid Humulin N NPH Insulin KwikPen 100 unit/mL (3 mL) insulin pen 10 - 15 unit subcut BID Qty: 15 0RF metformin 750 mg tablet extended release 24 hr 750 mg PO QDAY Qty: 90 1RF losartan 25 mg tablet 25 mg PO QDAY Qty: 90 1RF rosuvastatin 5 mg tablet 5 mg PO QDAY Qty: 90 3RF pantoprazole 40 mg tablet,delayed release (DR/EC) 40 mg PO QDAY Qty: 30 12RF acetaminophen 500 mg tablet 1,000 mg PO Q6H PRN Patient Comments: for pain 1-3/10, headache, fever magnesium oxide 400 mg (241.3 mg magnesium) tablet 400 mg PO BID Follow Up/Referrals: Bryce Hicks MD [Primary Care Provider] - Stand Alone [facility]: [facility] Info Inst[facility]
[2023-07-03] MEDS: AMOXICILLIN/CLAVULANATE 875 mg/125 mg TABLET PO (19:08)
== END 2023-07-03 19:12 | disposition home or self-care (01) ==
LOC: ED 18:39
PROVIDERS: Emergency Provider Family Medicine; PCP Family Medicine
DX: K11.20 Sialoadenitis, unspecified (principal)
CPT/HCPCS: 99283; A9270

== ENCOUNTER 2023-07-27 07:50 | Outpatient (CLI) | payer OTHER, SELFPAY | END 2023-07-27 07:51 | disposition home or self-care (01) | LOC: NFLDREF 07-28 10:43 | PROVIDERS: PCP Family Medicine; Referring Provider Family Medicine; Visit Provider Family Medicine | DX: D64.9 Anemia, unspecified (principal); E11.9 Type 2 diabetes mellitus without complications; I10 Essential (primary) hypertension | CPT/HCPCS: 80048; 82728; 83540 ==

== ENCOUNTER 2023-08-15 12:27 | Outpatient (CLI) | payer OTHER, SELFPAY | END 2023-08-15 12:28 | disposition home or self-care (01) | PROVIDERS: PCP Family Medicine; Visit Provider Family Medicine | DX: Z12.5 Encounter for screening for malignant neoplasm of prostate (principal); N28.9 Disorder of kidney and ureter, unspecified | CPT/HCPCS: 80048; 84153 ==

== ENCOUNTER 2023-08-30 09:00 | Outpatient (RCR) | payer OTHER, SELFPAY ==
--- NOTE | 2023-06-01 15:03 | PT.OPEX ---
[facility] PT [facility] Outpatient Eval Start: 06/01/23 09:54 Freq: Status: Active Protocol: Document 06/01/23 09:54 [facility] (Rec: 06/01/23 10:42 [facility] [id number]) E-signed By Rizwan Mac, PT Physical Therapy Outpatient Evaluation Insurance Information Insurance Name Medicare B Medical Diagnosis Chest wall pain R07.89 Other malaise R07.89 Other acute postprocedural pain G89.18 Treating Diagnosis shoulder stiffness M25.61 Muscle weakness M62.81 chest wall pain Referring MD Dr. Bryce Hicks Subjective Subjective Pt arrives with chest wall tightness following a lung transplant 14 months ago. The tightness is all under the breastline where the incision is. After the swelling went down, the tightness was there and it just stayed. It is not worsening but also not getting better. He also notices weakness in his upper body. He is not able to lift his power tools like he use to. 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 Exacerbating: try to lift something/flex the muscles ( right nipple gets tight and painful) Relieving: nothing Able to ambulate one mile at a time. Sometimes limited by leg fatigue. No desire to walk longer distances. 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 Still wants to be able to use power tools Preferred Name Jacek Precautions Therapy Limitations/Systems Review Other Medical Problem Objective Other/Pertinent Objective UE AROM/ PROM Flexion: 135 deg vasiliy/ 140 deg Abduction: WNL/ WNL ER: Reach to medial scap border/ (R) 75 deg (L) 85 deg IR: Reach to L1/2 / (R) 80 deg (L) 90 deg Strength: UEs grossly 5/5 except IR 4/5 and painful in chest Elbow flexion: 4+/5 vasiliy Elbow extension: 4/5 vasiliy Observation: long, well healed incision that extends from inferior outer edge of left breast to outer edge of right breast, crosses sternum. Pec atrophy vasiliy. 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 He has not been doing any stretching or strengthening exercises since the transplant. He also had vocal cord damage during the transplant so just recently came off restrictions from a vocal cord repair. Patient is not ready to work on improving is upper body functional mobility and strength and will benefit from skilled PT for both manual therapy techniques and complementary progressive ROM/ strengthening exercises. Breathing exercises will also be important to facilitate his mobility. Primary Functional Limitations overhead reach, heavy lifting Plan of Care Rehabilitation Potential Excellent Rehabilitation Potential Comments pt self-motivated Physical Therapy Goals In 8-10 weeks, patient will: 1) Improve active shoulder flexion to WNL bilaterally to be able to perform overhead reach activities painfree and easily 2) Improve upper body functional strength to WNL to allow patient to comfortably lift his power tools (up to 30 lbs) 3) Be I with HEP to continue to progress his functional mobility and to self-manage any residual symptoms 4) Demonstrate deep belly breathing technique, with ability to hold exhale for 10+ seconds Coordination/Communication With Referral Source,Patient Caregiver Treatment Plan/Direct Interventions Joint Mobilization,Manual Therapy,Neuromuscular Re-ed, Self-Care/Home Management, Therapeutic Exercises Direct Interventions Clarification Yamile IASTM/STM/MFR, Comments progressive HEP, T-spine/GH mob, breathing skills Frequency/Duration 1x/week for 8-10 weeks Patient Will Be Discharged From Therapy Completion of LTG(s), Independent w/HEP, Independently Progressing Evaluation Billing Untimed Code Treatment Minutes 30 Complexity Moderate Certification Information Initial Certification Date 06/01/23 Ending Certification Date 08/24/23 Provider Signature Shows Agreement With POC & Medical Necessity Physician Signature & Date Requested Please Sign/Date Here Physician Comment/Change : Physician NPI Number #
== END 2023-10-10 14:40 | disposition home or self-care (01) ==
PROVIDERS: PCP Family Medicine; Visit Provider Family Medicine
DX: R07.89 Other chest pain (principal); R53.81 Other malaise; G89.18 Other acute postprocedural pain; M25.619 Stiffness of unspecified shoulder, not elsewhere classified; M62.81 Muscle weakness (generalized); Z51.89 Encounter for other specified aftercare
CPT/HCPCS: 97110; 97140; 97162; 97535

== ENCOUNTER 2023-11-14 09:52 | Outpatient (CLI) | payer OTHER, SELFPAY | END 2023-11-14 09:53 | disposition home or self-care (01) | LOC: LKVREF 09:52 | PROVIDERS: PCP Family Medicine; Visit Provider Family Medicine | DX: E78.00 Pure hypercholesterolemia, unspecified (principal) | CPT/HCPCS: 80061 ==

== ENCOUNTER 2023-12-15 08:50 | Outpatient (CLI) | payer OTHER, SELFPAY | END 2023-12-15 08:51 | disposition home or self-care (01) | LOC: NFLDREF 12-18 06:35 | PROVIDERS: PCP Family Medicine; Referring Provider Family Medicine; Visit Provider Family Medicine | DX: R53.83 Other fatigue (principal); E11.9 Type 2 diabetes mellitus without complications; Z79.4 Long term (current) use of insulin | CPT/HCPCS: 84443 ==

== ENCOUNTER 2024-02-01 16:24 | Emergency (ER) | payer OTHER, SELFPAY ==
[2024-02-01] VITALS (13 sets, daily range): BP systolic 139–150; BP diastolic 96–111; PULSE 73–133; RESP 18; TEMP 36.9; O2SAT 97–100; BMI 30.1
--- NOTE | 2024-02-01 17:24 | ED.ARRPALP ---
HPI - Arrhythmia/Palpitations General Chief Complaint: Arrhythmia/Palpitations Stated Complaint: Elevated heartrate Time Seen by Provider: 02/01/24 16:39 History of Present Illness HPI narrative: This 78-year-old male comes in reporting rapid heart rate. He states that it started about 6 hours prior to arrival and has been persistent since then with a heart rate around 130 or so. He does not report any associated symptoms. He does not have any chest pain, nausea, vomiting, lightheadedness, shortness of breath, or diaphoresis. He does have a history of congestive heart failure but does not report any shortness of breath and does not have any pedal edema or orthopnea. He has Lasix on hand but states that he is not taking it. He has a history of atrial fibrillation and has been cardioverted in the past. He is taking Eliquis 5 mg twice a day and is also taking sotalol extended release at 80 mg at nighttime. When his heart rate began going faster this morning he did take an extra dose of metoprolol. He does not know how many mg that was that he took. He continues with tachycardia and does not have any specific symptoms or condition that explains the tachycardia. The patient did know about Valsalva maneuver because he was told about this in the past and may have some remote history of supraventricular tachycardia. Related Data Home Medications ?Medication ?Instructions ?Recorded ?Confirmed cholecalciferol (vitamin D3) 50 50 mcg PO QDAY 08/15/22 02/01/24 mcg (2,000 unit) capsule sulfamethoxazole 400 1 tab PO QDAY 08/15/22 02/01/24 mg-trimethoprim 80 mg tablet (Bactrim) acetaminophen 500 mg tablet 1,000 mg PO Q6H PRN 09/14/22 02/01/24 azithromycin 250 mg tablet 250 mg PO 3XW 04/04/23 02/01/24 cephalexin 500 mg capsule 2,000 mg PO ONCE prior to dental 04/04/23 02/01/24 appointment magnesium oxide 400 mg (241.3 mg 400 mg PO BID 04/04/23 02/01/24 magnesium) tablet sotalol 80 mg tablet 80 mg PO QDAY 04/04/23 02/01/24 prednisone 5 mg tablet 5 mg PO QDAY 07/18/23 02/01/24 furosemide 20 mg tablet 20 mg PO DAILY 08/15/23 02/01/24 tacrolimus 1 mg capsule, 3 mg PO Q12H 08/29/23 02/01/24 immediate-release semaglutide 7 mg tablet 7 mg PO QDAY 01/23/24 02/01/24 Previous Rx's ?Medication ?Instructions ?Recorded rosuvastatin 5 mg tablet 5 mg PO QDAY #90 tabs 08/14/23 apixaban 2.5 mg tablet (Eliquis) 2.5 mg PO BID #180 tabs 08/15/23 levothyroxine 112 mcg tablet 112 mcg PO DAILY #90 tabs 08/15/23 pantoprazole 40 mg tablet,delayed 40 mg PO QDAY #90 tabs 08/15/23 release iron,carbonyl 65 mg-vitamin C 125 1 tab PO QDAY #90 tabs 12/21/23 mg tablet,delayed release (Vitron-C) tizanidine 4 mg tablet 4 mg PO Q8H PRN muscle spasticity 01/22/24 #30 tabs Allergies Allergy/AdvReac Type Severity Reaction Status Date / Time Sulfa (Sulfonamide Allergy Severe unknown Verified 02/01/24 16:29 Antibiotics) sulfamethoxazole Allergy Severe Verified 02/01/24 16:29 [From Sulfamethoxazole-Trimethoprim] ciprofloxacin Allergy Mild Rash Verified 02/01/24 16:29 latex Allergy Unknown Rash Verified 02/01/24 16:29 levofloxacin AdvReac Unknown generalized Verified 02/01/24 16:29 muscle stiffness Review of Systems Status of ROS: Reports: 10 or more systems reviewed and unremarkable except as noted in History and below Narrative: Constitutional: No fevers, no weight gain or loss. Eyes: No discharge. No vision changes. HENT: No congestion, no sore throat, no ear pain. Cardiovascular: No chest pain, no palpitations. Respiratory: No shortness of breath, no wheezes, no cough. Gastrointestinal: No abdominal pain, no vomiting, no diarrhea. Genitourinary: No dysuria, no hematuria. Musculoskeletal: Normal range of motion. Skin: No rashes, no pruritis. Neurological: No dizziness, weakness, sensory change, speech change. Endo/Heme/Allergies: No bruising or bleeding. No polydipsia. Pysch: no suicidality, no anxiety, no insomnia. All other systems reviewed and are negative. 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 of insulin (ICD-10) Lung nodule ?R91.1 - Solitary pulmonary nodule (ICD-10) Chronic kidney disease ?N18.9 - Chronic kidney disease, unspecified (ICD-10) Sinusitis ?J32.9 - Chronic sinusitis, unspecified (ICD-10) Temporal arteritis ?M31.6 - Other giant cell arteritis (ICD-10) Anemia ?D64.9 - Anemia, unspecified (ICD-10) Chest wall pain following surgery ?R07.89 - Other chest pain (ICD-10) ?G89.18 - Other acute postprocedural pain (ICD-10) Renal insufficiency, mild ?N28.9 - Disorder of kidney and ureter, unspecified (ICD-10) Elevated liver function tests ?R79.89 - Other specified abnormal findings of blood chemistry (ICD-10) Pneumonia ?J18.9 - Pneumonia, unspecified organism (ICD-10) Physical deconditioning ?R53.81 - Other malaise (ICD-10) 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) ?K75.9 - Inflammatory liver disease, unspecified (ICD-10) Fibrosis of lung ?J84.10 - Pulmonary fibrosis, unspecified (ICD-10) Chest pain ?R07.9 - Chest pain, unspecified (ICD-10) Calculus of kidney (04/09/13) ?N20.0 - Calculus of kidney (ICD-10) GERD (gastroesophageal reflux disease) ?K21.9 - Gastro-esophageal reflux disease without esophagitis (ICD-10) Pneumothorax, acute ?J93.83 - Other pneumothorax (ICD-10) Iatrogenic pneumothorax ?J95.811 - Postprocedural pneumothorax (ICD-10) Pulmonary fibrosis ?J84.10 - Pulmonary fibrosis, unspecified (ICD-10) On prednisone therapy ?Z79.52 - accounts receivable collector (current) use of systemic steroids (ICD-10) Acute respiratory failure with hypoxia ?J96.01 - Acute respiratory failure with hypoxia (ICD-10) Gout ?M10.9 - Gout, unspecified (ICD-10) Renal lithiasis ?N20.0 - Calculus of kidney (ICD-10) Knee pain ?M25.569 - Pain in unspecified knee (ICD-10) Hepatitis ?K75.9 - Inflammatory liver disease, unspecified (ICD-10) Surgical History Lung transplant recipient ?Z94.2 - Lung transplant status (ICD-10) History of vasectomy ?Z98.52 - Vasectomy status (ICD-10) History of tonsillectomy ?Z90.89 - Acquired absence of other organs (ICD-10) S/P hip replacement ?Z96.649 - Presence of unspecified artificial hip joint (ICD-10) S/P blepharoplasty ?Z98.890 - Other specified postprocedural states (ICD-10) Family History (Updated 03/15/22 @ 09:20 by Carl Flores) Father Alcohol abuse Depression Prostate carcinoma Schizophrenia Brother Alcohol abuse Diverticulitis of colon Prostate carcinoma Sister Alcohol abuse Breast cancer Depression Schizophrenia Mother Diabetes Diverticulitis of colon Stroke Social History Smoking Status: Never smoker Second hand tobacco smoke exposure: No How often do you have a drink containing alcohol: never How often do you have six or more drinks on one occasion: Never AUDIT-C Alcohol total score: 0 Non-prescribed substance use: denies use Little interest or pleasure in doing things: not at all Feeling down, depressed, or hopeless: not at all Exam Narrative: Exam Narrative: Constitutional: Well-developed, well-nourished, no acute distress. HEENT: Normocephalic, atraumatic. Neck: Normal range of motion. Nontender. Supple. Heart: Regular. No murmurs. Tachycardia. Intact distal pulses. Lungs: Clear to auscultation. No chest discomfort. No wheezes, rhonchi, or rales. Abdomen: Normal bowel sounds. Nontender. No rebound tenderness. Genitalia: Deferred. Back: No midline tenderness. Normal range of motion. Extremities: Normal range of motion. No injury. Skin: Intact. No rash. Warm. No erythema or pallor. Neurologic: No altered sensation. No weakness. Alert and oriented. Psychiatric: No suicidality. No anxiety or depression. No insomnia. Nursing notes and vitals signs are reviewed. Const: Vital Signs, click to edit/add: Vital Signs - 24 hr 02/01/24 16:29 02/01/24 16:54 02/01/24 17:00 Temperature 98.4 F Pulse Rate 128 H 131 H Pulse Rate [Pulse Oximeter] 132 H Respiratory Rate 18 Blood Pressure Blood Pressure [Ri ght Upper Arm] 144/96 H Pulse Oximetry 98 98 99 Oxygen Delivery Me thod Room Air 02/01/24 17:02 02/01/24 17:30 02/01/24 17:32 Temperature Pulse Rate 131 H 133 H 132 H Pulse Rate [Pulse Oximeter] Respiratory Rate Blood Pressure 141/111 H 139/105 H Blood Pressure [Ri ght Upper Arm] Pulse Oximetry 97 99 97 Oxygen Delivery Me thod 02/01/24 18:00 02/01/24 18:02 02/01/24 18:11 Temperature Pulse Rate 132 H 132 H Pulse Rate [Pulse Oximeter] Respiratory Rate Blood Pressure 150/111 H Blood Pressure [Ri ght Upper Arm] Pulse Oximetry 97 100 99 Oxygen Delivery Me thod Course Vital Signs Vital signs: Initial Vital Signs Temperature 98.4 F 02/01/24 16:29 Temperature Source Temporal Artery Scan 02/01/24 16:29 Pulse Rate 132 H 02/01/24 16:29 Respiratory Rate 18 02/01/24 16:29 Blood Pressure 144/96 H 02/01/24 16:29 Blood Pressure Mean 112 H 02/01/24 16:29 Blood Pressure Position Sitting 02/01/24 16:29 Pulse Oximetry 98 02/01/24 16:29 Oxygen Delivery Method Room Air 02/01/24 16:29 Vital Signs Temperature 98.4 F 02/01/24 16:29 Pulse Rate 132 H 02/01/24 16:29 Respiratory Rate 18 02/01/24 16:29 Blood Pressure 144/96 H 02/01/24 16:29 Pulse Oximetry 98 02/01/24 16:29 Oxygen Delivery Method Room Air 02/01/24 16:29 Temperature 98.4 F 02/01/24 16:29 Pulse Rate 132 H 02/01/24 18:02 Respiratory Rate 18 02/01/24 16:29 Blood Pressure 150/111 H 02/01/24 18:02 Pulse Oximetry 99 02/01/24 18:11 Oxygen Delivery Method Room Air 02/01/24 16:29 MDM - Arrhythmia/Palpitations MDM Narrative Medical decision making narrative: This 78-year-old male comes in without any particular symptoms but notes on his watch that his heart rate is going around 130 beats per minute. Initial EKG does show a sinus tachycardia with a rate at 131. It does not appear to be atrial fibrillation however he does have a history of this and is currently taking Eliquis. He is also taking sotalol 80 mg at night and did take an extra dose of metoprolol today when his heart was going fast. An IV was established and the patient did not receive any IV fluids as he does have history of congestive heart failure. I did acquire labs and was thinking about using adenosine as it appeared to be a supraventricular tachycardia. As lab results returning the patient's heart rate spontaneously reduced to around 70 beats per minute. Lab results also returned with reassuring findings. The patient is following closely with a instructional material director who did recently recommend that he have an ablation because he is having some brief episodes of rapid heart rate like this. Today his symptoms lasted much longer. The patient is now interested in having this ablation done and will follow with his instructional material director for that purpose. Lab Data Labs: Lab Results 02/01/24 02/01/24 Range/Units 17:23 17:41 WBC 6.73 (4.50-11.00) K/uL RBC 3.68 L (4.30-5.90) m/uL Hgb 12.3 L (13.5-17.5) gm/dL Hct 36.1 L (37.0-53.0) % MCV 98 (80-100) fL MCH 33 (26-34) pg MCHC 34 (32-36) gm/dL RDW Coeff of Hilaria 14.1 (11.5-15.5) % Plt Count 184 (140-440) K/uL Neut % (Auto) 69.3 (42.0-72.0) % Lymph % (Auto) 12.8 L (20-44) % [place] % (Auto) 10.5 (0.0-11.0) % Eos % (Auto) 1.2 (0.0-7.0) % Baso % (Auto) 1.9 (0.0-3.0) % Neut # (Auto) 4.66 (1.7-7.0) K/uL Lymph # (Auto) 0.90 (0.90-2.90) K/uL [place] # (Auto) 0.70 (0.00-0.90) K/UL Eos # (Auto) 0.08 (0.00-0.50) K/uL Baso # (Auto) 0.13 (0.00-0.30) K/uL Abs Immat Gran (auto) 0.29 (0.00-0.30) K/uL Imm/Tot Granulo (auto) 4.3 % Diff Slide Review Acceptable Review (Acceptable) D-Dimer Quant (PE/DVT) 0.82 H (0.00-0.50) ug/ml Sodium 141 (135-149) mmol/L Potassium 3.9 (3.6-5.1) mmol/L Chloride 107 (96-114) mmol/L Carbon Dioxide 23 (20-32) mmol/L Anion Gap 11 (7-15) mEq/L BUN 42 H (7-30) mg/dL Creatinine 2.0 H (0.5-1.5) mg/dL Estimated Creat Clear 32.44 Estimated GFR 34 ml/min Glucose 104 (60-115) mg/dL Calcium 9.9 (8.4-10.6) mg/dL Magnesium 1.9 (1.5-2.6) mg/dL POC Troponin I 0.02 (0.01-0.04) ng/ml ECG Data Attestation: I personally reviewed and interpreted this ECG as follows: Interpretation: Sinus tachycardia, rate 131 beats per minute. There are no specific ST or T-wave abnormalities. Repeat EKG shows normal sinus rhythm with a heart rate of 71 beats per minute. There are no specific ST or T-wave abnormalities. Discharge Plan Discharge Clinical Impression: Supraventricular tachycardia Patient Disposition: Home, Self-Care Condition: Improved Additional Instructions: Continue current plans. Follow up with instructional material director for ongoing management. Return if symptoms are recurrent or worsening. Prescriptions: No Action sulfamethoxazole-trimethoprim [Bactrim] 400-80 mg tablet 1 tab PO QDAY cholecalciferol (vitamin D3) 50 mcg (2,000 unit) capsule 50 mcg PO QDAY sotalol 80 mg tablet 80 mg PO QDAY azithromycin 250 mg tablet 250 mg PO 3XW Patient Comments: MWF cephalexin 500 mg capsule 2,000 mg PO ONCE tizanidine 4 mg tablet 4 mg PO Q8H PRN (Reason: muscle spasticity) Qty: 30 1RF furosemide 20 mg tablet 20 mg PO DAILY Eliquis 2.5 mg tablet 2.5 mg PO BID Qty: 180 3RF levothyroxine 112 mcg tablet 112 mcg PO DAILY Qty: 90 3RF pantoprazole 40 mg tablet,delayed release (DR/EC) 40 mg PO QDAY Qty: 90 4RF acetaminophen 500 mg tablet 1,000 mg PO Q6H PRN Patient Comments: for pain 1-11/18, headache, fever magnesium oxide 400 mg (241.3 mg magnesium) tablet 400 mg PO BID prednisone 5 mg tablet 5 mg PO QDAY rosuvastatin 5 mg tablet 5 mg PO QDAY Qty: 90 3RF tacrolimus 1 mg capsule 3 mg PO Q12H Vitron-C 65 mg iron- 125 mg tablet,delayed release (DR/EC) 1 tab PO QDAY Qty: 90 1RF semaglutide 7 mg tablet 7 mg PO QDAY Follow Up/Referrals: Bryce Hicks MD [Primary Care Provider] - Stand Alone Forms: [facility] Info Instructions
[2024-02-01 17:58] LABS: Troponin, Point-of-Care* 0.02 ng/ml (0.01-0.04)
[2024-02-01 18:16] LABS: Basophils Absolute Auto 0.13 K/uL (0.00-0.30); Basophils Percent Auto 1.9 % (0.0-3.0); Eosinophils Absolute Auto 0.08 K/uL (0.00-0.50); Eosinophils Percent Auto 1.2 % (0.0-7.0); Hematocrit 36.1 % (37.0-53.0); Hemoglobin* 12.3 gm/dL (13.5-17.5); Immature Granulocytes Abs Auto 0.29 K/uL (0.00-0.30); Immature Granulocytes Pct Auto 4.3 %; Lymphocytes Percent Auto 12.8 % (20-44); Mean Corpuscular HGB Conc 34 gm/dL (32-36); Mean Corpuscular Hemoglobin 33 pg (26-34); Mean Corpuscular Volume 98 fL (80-100); Monocytes Percent Auto 10.5 % (0.0-11.0); Neutrophils Absolute Auto 4.66 K/uL (1.7-7.0); Neutrophils Percent Auto 69.3 % (42.0-72.0); Platelet Count* 184 K/uL (140-440); RDW Coefficient of Variation % 14.1 % (11.5-15.5); Red Blood Count 3.68 m/uL (4.30-5.90); White Blood Count* 6.73 K/uL (4.50-11.00)
[2024-02-01 18:20] LABS: Chloride* 107 mmol/L (96-114); Potassium* 3.9 mmol/L (3.6-5.1); Sodium* 141 mmol/L (135-149)
[2024-02-01 18:23] LABS: Anion Gap 11 mEq/L (7-15); Blood Urea Nitrogen* 42 mg/dL (7-30); Carbon Dioxide* 23 mmol/L (20-32); Est. Creatinine Clearance* 32.44; Estimated Glomerular Filt Rate 34 ml/min
[2024-02-01 18:24] LABS: Calcium* 9.9 mg/dL (8.4-10.6); Glucose* 104 mg/dL (60-115); Magnesium* 1.9 mg/dL (1.5-2.6)
[2024-02-01 18:25] LABS: D Dimer Quantitative* 0.82 ug/ml (0.00-0.50)
[2024-02-01 18:40] LABS: Slide Review Reflex Yes
[2024-02-01 18:41] LABS: Slide Review Acceptable Review (Acceptable)
[2024-02-01 18:58] LABS: NT Pro B Type NatriureticPept* 2010 pg/mL
== END 2024-02-01 19:16 | disposition home or self-care (01) ==
PROVIDERS: Emergency Provider Emergency Medicine Emergency Medical Services; PCP Family Medicine
DX: R00.0 Tachycardia, unspecified (principal)
CPT/HCPCS: 36415; 80048; 83735; 83880; 84443; 84484; 85025; 85379; 93005; 94761; 99284

== ENCOUNTER 2024-02-21 08:45 | Outpatient (RCR) | payer OTHER, SELFPAY ==
--- NOTE | 2024-01-30 11:01 | PT.OPE ---
PT [facility] Outpatient Eval PT [facility] Outpatient Eval Start: 01/29/24 11:05 Freq: Status: Active Protocol: Document 01/29/24 11:05 CAROLINE (Rec: 01/29/24 11:07 CAROLINE [id number]) E-signed By Rex Maya DPT, MS Physical Therapy Outpatient Evaluation Insurance Information Recert Due Date 04/28/24 Insurance Name Medicare B Medical Diagnosis Dorsalgia, unspecified Treating Diagnosis L hip and LS pain, decreased B LS flexibility and ROM, gait dysfunction, imbalance, and B LE and core weakness. Subjective Subjective Pt is a 78 y.o. male with a complex PSH and PMH who presents to PT with c/o acute onset of severe L LS and gluteal pain of insidious origin 2-3 weeks ago. Has been more active in his yard but takes frequent breaks due to SOB as he continues to recover from B lung transplants 18 months ago. Sxs increase as the day goes on with lying supine helping relieve sxs. Increased time walking and standing lead to elevated sxs. Previous hx of sciatica and LS pain but his current sxs have been the most intense LS pain he can recall. 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 Denies radicular sxs, bowel or bladder changes. Recent radiographs found ?Ambiguous lumbar segmentation. There is a transitional lumbosacral vertebra designated S1 for purposes of this report. Mild left lumbar curve. Disc space narrowing and endplate hypertrophy throughout the lumbar spine greatest at L2-3 and L3-4.? PSH also includes R ANGIE. PMH includes LS OA, HTN, DM-II and depression. AGGR factors: walking, carrying objects, stair climbing, standing, uneven surfaces, bending backwards. ALLEV factors: fwd bending, walking withs shopping cart lying supine, rest. 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 L LS and glute max very reactive to palpation with hypertonicity and TPs with good response to MT and US today. Degenerative LS changes combined with tightness in his L hip musculature, and significant B LE and core weakness and imbalance appear to be leading to sxs in WBing positions. Trial of NuStep and recumbent bike led to increased sxs and recommended pt wait to return to exercise at [address] until his sxs improve. Good response to stretching and strengthening exercises with fatigue and decreased L glute and LS pain following. He will benefit from continued skilled therapy to address these limitations. Primary Functional Limitations Walking, carrying objects, stair climbing, standing, uneven surfaces, bending backwards Plan of Care Rehabilitation Potential Good Rehabilitation Potential Comments Due to deconditioning, surgical hx and degenerative LS changes Physical Therapy Goals Short-term goals to be completed in 4 weeks: 1. Pt will be able to walk > 500 feet with LS pain <3/10 to safely attend medical appointments and walk to his mailbox. 2. Pt will display improved B LE strength as evidenced by performing >10 SLR of good quality to improve quality of gait. Long-term goals to be completed in 10 weeks: 1. Pt will be independent and compliant with HEP 2. Pt will display improved mechanics going up<>down 12 stairs with a reciprocal pattern using 1 railing to safely reach his bedroom. 3. Pt will display improved B hip flex, ABD and ext strength of >4/5 to improve quality of gait and tolerance to household activities. 4. Pt will report >50% improvement in LEFS questionnaire to significantly improve tolerance to functional activities. Coordination/Communication With Referral Source Treatment Plan/Direct Interventions Joint Mobilization,Manual Therapy,Neuromuscular Re-ed, Therapeutic Exercises Frequency/Duration 1x per week for least 6-10 visits, decreasing visit frequency as able. Patient Will Be Discharged From Therapy Completion of LTG(s),Skills Plateau,Independent w/HEP, Independently Progressing Evaluation Billing Untimed Code Treatment Minutes 24 Complexity Moderate Certification Information Initial Certification Date 01/29/24 Ending Certification Date 04/28/24 Provider Signature Shows Agreement With POC & Medical Necessity Physician Signature & Date Requested Please Sign/Date Here Physician Comment/Change : Physician NPI Number #
== END 2024-06-20 23:59 | disposition home or self-care (01) ==
PROVIDERS: PCP Family Medicine; Visit Provider Family Medicine
DX: M54.9 Dorsalgia, unspecified (principal); M25.552 Pain in left hip; M53.3 Sacrococcygeal disorders, not elsewhere classified; Z74.09 Other reduced mobility; R26.9 Unspecified abnormalities of gait and mobility; R26.81 Unsteadiness on feet; R29.898 Other symptoms and signs involving the musculoskeletal system; Z51.89 Encounter for other specified aftercare
CPT/HCPCS: 97110; 97140; 97162

== ENCOUNTER 2024-02-28 08:54 | Outpatient (CLI) | payer OTHER, SELFPAY | END 2024-02-28 08:55 | disposition home or self-care (01) | LOC: NFLDREF 03-07 14:46 | PROVIDERS: PCP Family Medicine; Referring Provider Family Medicine; Visit Provider Family Medicine | DX: I10 Essential (primary) hypertension (principal) | CPT/HCPCS: 80048 ==

== ENCOUNTER 2024-03-07 10:13 | Outpatient (CLI) | payer OTHER, SELFPAY | END 2024-03-07 10:14 | disposition home or self-care (01) | LOC: LKVREF 10:16 | PROVIDERS: PCP Family Medicine; Visit Provider Family Medicine | DX: I10 Essential (primary) hypertension (principal); N18.32 Chronic kidney disease, stage 3b; I48.91 Unspecified atrial fibrillation; D64.9 Anemia, unspecified | CPT/HCPCS: 80048 ==

== ENCOUNTER 2024-03-18 09:09 | Outpatient (CLI) | payer OTHER, SELFPAY ==
--- NOTE | 2024-03-18 09:15 | CRLHL7_ITS ---
For Patients: As a result of the Century Cures Act, medical imaging exams and procedure reports are released immediately into your electronic medical record. You may view this report before your referring provider. If you have questions, please contact your health care provider. INDICATION: Low back pain radiculopathy. TECHNIQUE: Sagittal and axial T1, sagittal axial T2 and sagittal STIR images. COMPARISON: Lumbar spine radiographs dated 01/22/2024. FINDINGS: Transitional lumbosacral segment referred to as S1 in this report. It is partially lumbarized on the right side. There is a rudimentary disc space between S1 and the body of the sacrum. Grade 1 degenerative spondylolisthesis at L5-S1. Multilevel spondylosis. Conus medullaris and distal cord appear normal conus terminates normally at L2. No disc herniation or stenosis at the T11-12, T12-L1 or L1-2 levels. At L2-3 degenerative narrowing of the disc space and disc desiccation. Circumferential annular bulge with marginal osteophytes and bilateral facet arthropathy. There is moderate central canal stenosis. There is lateral recess stenosis with some impingement of traversing bilateral L3 nerve roots. Mild right foraminal narrowing At L3-4 degenerative disc desiccation disc space narrowing. Circumferential annular bulging with marginal osteophytes and advanced facet arthropathy. Anterior facet spurring and small left-sided facet synovial cyst. Moderate central stenosis lateral recess stenosis with impingement of traversing bilateral L4 nerve roots. Mild right foraminal narrowing. At L4-5 degenerative disc desiccation. Moderate left foraminal disc extrusion impinges the exiting left L4 nerve root. Prominence of dorsal epidural fat results in mild central stenosis. At L5-S1 grade 1 anterolisthesis degenerative disc desiccation disc space narrowing. Bilateral facet arthropathy with anterior facet spurs. Mild central canal stenosis moderate left and mild right foraminal narrowing. Impression : 1. Multilevel spondylosis. Transitional lumbosacral segment referred to as S1. 2. At L5-S1, grade 1 degenerative spondylolisthesis, mild central stenosis with advanced facet arthropathy and mild left foraminal narrowing. 3. At L4-5 large left foraminal disc extrusion impinges exiting left L4 nerve root. Mild central stenosis. 4. At L3-4 moderate to severe central stenosis, lateral recess stenosis and impingement of traversing bilateral L4 nerve roots. 5. At L2-3 moderate central canal stenosis lateral recess stenosis and impingement of traversing bilateral L3 nerve roots. Dictated by Daniel Ramirez MD @ 03/18/2024 11:40:45 AM (Electronically Signed)
== END 2024-03-18 09:10 | disposition home or self-care (01) ==
LOC: MRI 09:10
PROVIDERS: PCP Family Medicine; Visit Provider Family Medicine
DX: M54.50 Low back pain, unspecified (principal); M47.897 Other spondylosis, lumbosacral region; M51.26 Other intervertebral disc displacement, lumbar region; M48.061 Spinal stenosis, lumbar region without neurogenic claudication
CPT/HCPCS: 72148

== ENCOUNTER 2024-04-04 12:07 | Outpatient (CLI) | payer OTHER, SELFPAY | END 2024-04-04 12:08 | disposition home or self-care (01) | PROVIDERS: PCP Family Medicine; Referring Provider Family Medicine; Visit Provider Internal Medicine Nephrology | DX: N18.32 Chronic kidney disease, stage 3b (principal); D64.9 Anemia, unspecified; R53.83 Other fatigue | CPT/HCPCS: 80069; 82043; 82570 ==

== ENCOUNTER 2024-07-30 08:03 | Outpatient (CLI) | payer OTHER, SELFPAY | END 2024-07-30 08:04 | disposition home or self-care (01) | LOC: NFLDREF 08:04 | PROVIDERS: PCP Family Medicine; Visit Provider Family Medicine | DX: Z20.1 Contact with and (suspected) exposure to tuberculosis (principal) | CPT/HCPCS: 86480 ==

== ENCOUNTER 2024-08-05 13:03 | Outpatient (CLI) | payer OTHER, SELFPAY ==
--- NOTE | 2024-08-05 13:00 | CRLHL7_ITS ---
For Patients: As a result of the Century Cures Act, medical imaging exams and procedure reports are released immediately into your electronic medical record. You may view this report before your referring provider. If you have questions, please contact your health care provider. INDICATION: Contact with and, exposure to tuberculosis TECHNIQUE: Chest radiograph 2 views COMPARISON: 08/31/2023 FINDINGS: Mediastinum: The mediastinum is normal in appearance. The heart silhouette is normal in size and morphology. Lung: Mild pleural-parenchymal scarring is noted in the right lung base with chronic small right pleural effusion. No pneumothorax is identified. Bone and Soft tissue: Unremarkable for age. Inferior sternotomy wires are noted. IMPRESSION: 1. Mild pleural-parenchymal scarring is noted in the right lung base with chronic small right pleural effusion. The appearance is unchanged from prior exam. Dictated by Aneudy Patterson MD @ 08/05/2024 1:42:49 PM Dictated by: Aneudy Patterson MD @ 08/05/2024 13:42:55 (Electronically Signed)
--- OUTSIDE RECORDS SUMMARY | 2024-08-05 13:06 | XMS_ITS | Referral Summary ---
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 Gender Identity Not on file Sexual Orientation Not on file Plan of Treatment Not on file Procedures Procedure Name Priority Date/Time Associated Diagnosis Comments COLONOSCOPY Routine 01/27/2005 2:10 PM CDT from Last 3 Months or Most Recently Relevant to Health Maintenance Results * COLONOSCOPY (01/27/2005 2:10 PM CDT) COLONOSCOPY [facility] Patient Name: Jacek Natylee Gender: M Exam Date: 01/27/2005 02:10 PM Procedure: Colonoscopy Indications: Screening for malignant neoplasm in the colon Providers: Arnulfo Carolina MD, Dacia Nguyễn RN Referring MD: Archie Wright MD Medicines: Fentanyl IV 100 mcgs, Versed IV 2 mgs Complications: No immediate complications Procedure: A History and Physical has been performed, and patient medication allergies have been reviewed. The patient's tolerance of previous anesthesia has been reviewed. The risks and benefits of the procedure and the sedation options and risks were discussed with the patient. All questions were answered and informed consent was obtained. Mental Status Examination: normal. Airway Examination: normal oropharyngeal airway and neck mobility. Respiratory Examination: clear to auscultation. CV Examination: RRR, no murmurs, no S3 or S4. ASA Grade Assessment: P2 A patient with mild systemic disease. After reviewing the risks and benefits, the patient was deemed in satisfactory condition to undergo the procedure. The anesthesia plan was to use conscious sedation. Immediately prior to administration of medications, the patient was re-assessed for adequacy to receive sedatives. The heart rate, respiratory rate, oxygen saturations, blood pressure, adequacy of pulmonary ventilation, and response to care were monitored throughout the procedure. The physical status of the patient was re-assessed after the procedure. After obtaining informed consent, the colonoscope was passed under direct vision. Throughout the procedure, the patient's blood pressure, pulse, and oxygen saturations were monitored continuously. The Colonoscope was introduced through the anus and advanced to the cecum, identified by appendix & IC valve. The quality of the prep was good except ascending colon was poor. Findings: The descending colon, splenic flexure, transverse colon, hepatic flexure, ascending colon, cecum and ileocecal valve were normal. Multiple small-mouthed diverticula were found in the sigmoid colon. The rectum was normal. Impression: - The descending colon, splenic flexure, transverse colon, hepatic flexure, ascending colon, cecum and ileocecal valve are normal. - Diverticulosis. - The rectum is normal. Recommend: - The patient was discharged to home (ambulatory). - Repeat colonoscopy for screening purposes in 10 years. Signed electronically by Arnulfo Carolina MD Arnulfo Carolina MD Signed Date: 01/27/2005 2:56:08 PM I was physically present for the entire viewing portion of the exam. Note generated on 01/27/2005 2:09:10 PM RADIOLOGY RESULTS COLONOSCOPY RADIOLOG Y RESULTS 01/27/2005 2:10 PM CDT us Arnulfo Carolina MD PROCEDURES Final Result RADIOLOGY RESULTS from Last 3 Months or Most Recently Relevant to Health Maintenance [facility] Care Teams Residential Case Manager Relationship Specialty Start Date End Date [facility], [facility] [address] [place] [id number] PCP - General 03/06/18
--- OUTSIDE RECORDS SUMMARY | 2024-08-05 13:06 | XMS_ITS | Clinical Summary ---
Author Organization [facility] Address [place], [place] [address] Care Team Providers Care Vat House Supervisor Name Role Phone Bryce Hicks MD Primary Care Provider [phone] Allergies Active Allergy Reactions Criticality Noted Date Comments Ciprofloxacin Arthralgia 09/01/2016 Whole body ached Flecainide Shortness Of Breath,Dizziness 06/29/2021 Latex Rash 03/23/2018 C-pap leaves burn josie on face from latex mask Levofloxacin Other - Describe In Comment Field 09/01/2016 Patient doesn't remember reaction to rx Sulfa (Sulfonamide Antibiotics) Dizziness Low 07/03/2018 Sulfamethoxazole-Trimeth oprim Headache 05/09/2018 Medications Medication Sig Dispensed Refills Start Date End Date Status levothyroxine (SYNTHROID) 112 mcg tablet Take 112 mcg by mouth before breakfast. 01/27/2021 Active cephalexin (KEFLEX) 500 mg capsule TAKE 4 CAPSULES BY MOUTH 1 HOUR BEFORE APPOINTMENT 08/03/2021 Active rosuvastatin (Crestor) 5 mg tablet Take 1 Tablet (5 mg) by mouth at bedtime. 0 05/02/2023 Active magnesium oxide (MAG-OX 400) 400 mg tablet Take 1 Tablet (400 mg) by mouth two times daily. 0 07/12/2023 Active pantoprazole (PROTONIX) 40 mg delayed-release tablet Take 1 Tablet by mouth at bedtime. 05/23/2022 Active trimethoprim-sulfame thoxazole, 80-400 mg, (Bactrim) tab Take 1 Tablet by mouth once daily in the evening. 6 Tablet 07/12/2023 Active cholecalciferol, Vitamin D3, 5,000 unit tab tablet Take 125 mcg by mouth once daily. 05/05/2023 Active tacrolimus (PROGRAF) 1 mg capsule Take 3 mg by mouth once daily in the morning. 3 mg in the morning and 2.5 mg in the evening 06/29/2023 Active azithromycin (ZITHROMAX) 250 mg tablet Take 250 mg by mouth every Monday, Monday and Monday. take 1 tablet by mouth three times a week. Active azaTHIOprine (IMURAN) 50 mg tablet Take 100 mg by mouth every morning. Active predniSONE (DELTASONE) 5 mg tablet Take 1 Tablet (5 mg) by mouth once daily with a meal. 01/10/2024 Active semaglutide (RYBELSUS) 7 mg tablet Take 7 mg by mouth once daily before a meal. 12/14/2023 Active tacrolimus (Prograf) 0.5 mg capsule Take 2.5 mg by mouth once daily in the evening. 3 MG IN THE MORNING AND 2.5MG IN THE EVENING Active iron,carbonyl-vitami n C (Vitron-C) 65 mg iron- 125 mg Delayed-Release tablet Take 1 Tablet by mouth once daily in the evening. Active furosemide (LASIX) 20 mg tabletIndications:S/ P ablation of atrial fibrillation Take 1 Tablet (20 mg) by mouth once daily in the morning. Or until your weight is back to baseline 3 Tablet 02/29/2024 Active apixaban (Eliquis) 5 mg tabletIndications:Pa roxysmal atrial fibrillation (HC) Take 0.5 Tablets (2.5 mg) by mouth two times daily. If you have AFIB, take an extra 2.5 mg and call us at 90 Tablet 1 05/28/2024 Active valsartan (DIOVAN) 160 mg tabletIndications:Hy pertension Take 160 mg (1 Tablet) by mouth once daily in the evening 90 Tablet 1 05/31/2024 Active Active Problems Problem Noted Date Diagnosed Date Paroxysmal atrial fibrillation 05/27/2024 Encounters Date Type Department Care Team Description 05/31/2024 Refill [facility] [address] [place] [address] Samantha Hall NP Refill Request (Valsartan) 05/28/2024 11:20 AM CDT Office Visit [place] [address] [place] [address] Samantha Hall NP CV Electrophysiology Est ([place] [facility] /Post Afib Ablation(02/29/2024) ///Bryce Hicks MD) 05/28/2024 Travel from Last 3 Months Social History Tobacco Use Types Packs/Day Years Used Date Smoking Tobacco: Former Smokeless Tobacco: Never Tobacco Cessation:Counseling Given: Yes Alcohol Use Standard Drinks/Week Comments Not Currently 0 (1 standard drink = 0.6 oz pur e alcohol) Social Connections Answer Date Recorded Frequency of Communication with Friends and Fami ly Not on file 09/03/2021 Financial Resource Strain Answer Date R ecorded Difficulty of Paying Living Expenses Not on file 09/03/2021 Difficulty of Paying Living Expenses Not on file 09/03/2021 Sex and Gender Information Value Date Recorded Sex Assigned at Not on file Gender Identity Not on file Sexual Orientation Not on file Obstetrics History Last Filed Vital Signs Vital Sign Reading Time Taken Comments Blood Pressure 126/72 05/28/2024 11:07 AM CDT Pulse 70 05/28/2024 11:07 AM CDT Temperature 36.4 C (97.5 F) 02/29/2024 2:15 PM CDT Respiratory Rate 18 02/29/2024 5:00 PM CDT Oxygen Saturation 98% 05/28/2024 11:07 AM CDT Inhaled Oxygen Concentration - - Weight 94.1 kg (207 lb 6.4 oz) 05/28/2024 11:07 AM CDT Height 177.8 cm (5' 10) 05/28/2024 11:07 AM CDT Body Mass Index 29.76 05/28/2024 11:07 AM CDT Plan of Treatment Health Maintenance Due Date Last Done Comments Tdap 1956 Depression screening for age 12+ 1959 Hepatitis C screening for ag e 18-79 1965 Zoster (shingles) series for age 50+ (1 of 2) 1966 Tetanus booster 1967 Medicare Wellness for age 65+ 2012 Pneumococcal series for age 65+ (1 of 1 - PCV) 2012 RSV vaccine for adults or (1 - 1-dose 75+ series) 2022 COVID-19 vaccine series (2023- season) 2024 12/29/2023, 06/12/2023, 08/12/2022, Additional history exists Influenza for age 65+ 05/12/2024 BMI (ht and wt on same day) for age 18+ 05/28/2025 05/28/2024, 01/10/2024, 07/12/2023, Additional history exists Procedures Procedure Name Priority Date/Time Associated Diagnosis Comments EKG 12 LEAD Routine 05/28/2024 Paroxysmal atrial fibrillation (HC) from Last 3 Months Results * EKG 12 LEAD (05/28/2024) 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
--- OUTSIDE RECORDS SUMMARY | 2024-08-05 13:06 | XMS_ITS | Clinical Summary ---
Author Organization [facility] Address [address] [place] [address] Care Team Providers Care Cte Teacher Name Role Phone Bryce Hicks MD Primary Care Provider [phone] Source Comments You are receiving this document as you are listed as the primary care provider,follow-up provider, or the patient has been referred to you for consultation.This is in compliance with the Medicare andGrant Hospitalcaid EHR Incentive Program,which states Providers who transition their patient to another setting of careor provider of care or refers their patient to another provider of care shouldprovide summary care record for each transition of care or referral. [facility] Allergies Active Allergy Reactions Criticality Noted Date Comments Amitriptyline Dizziness 07/28/2020 Ciprofloxacin Rash 08/19/2016 Latex Rash 03/23/2018 C-pap leaves burn josie on face from latex mask Levofloxacin Swelling 08/19/2016 Swollen joints Sulfamethoxazole-Trimethoprim High 2017 Medications Medication Sig Dispensed Refills Start Date End Date Status XARELTO 20 MG tablet TK 1 T PO D WITH MEAL 06/15/2020 Active allopurinol (ZYLOPRIM) 300 MG tablet TK 1 T PO D 07/18/2020 Active atorvastatin (LIPITOR) 40 MG tablet TK 1 T PO HS 06/15/2020 Active omeprazole (PRILOSEC) 40 MG capsule TK 1 C PO D 07/18/2020 Active levothyroxine (SYNTHROID) 137 MCG tablet TK 1 T PO D 07/16/2020 Active metFORMIN XR (GLUCOPHAGE XR) 500 MG 24 hour release tablet Take 1,000 mg by mouth daily. 04/26/2021 Active metoprolol succinate (TOPROL XL) 25 MG 24 hour release tablet Take 20 mg by mouth. Active nabumetone (RELAFEN) 500 MG tablet Take 1,000 mg by mouth. Active nystatin (MYCOSTATIN) 006401 UNIT/GM cream APPLY TOPICALLY TO THE AFFECTED AREA 2 TO 3 TIMES PER DAY 05/06/2021 Active propafenone (RYTHMOL) 150 MG tablet TAKE ONE TABLET BY MOUTH EVERY EIGHT HOURS. discontinue flecainide. 06/29/2021 Active Active Problems Problem Noted Date Diagnosed Date Chronic respiratory failure with hypoxia 022 Hypoxia 10/06/2021 Irritable larynx syndrome 01/07/2021 Chronic throat clearing 01/07/2021 Chronic cough 07/23/2020 ILD (interstitial lung disease) 07/23/2020 Immunizations Name Administration Dates Next Due Dean Comfort 12+ 11/25/2020,10/28/2020 Social History Tobacco Use Types Packs/Day Years Used Date Smoking Tobacco: Former Cigarettes Q uit: 1970 Smokeless Tobacco: Never Alcohol Use Standard Drinks/Week Comments Not Currently 0 (1 standard drink = 0.6 oz pur e alcohol) Sex and Gender Information Value Date Recorded Sex Assigned at Not on file Gender Identity Not on file Sexual Orientation Not on file Last Filed Vital Signs Vital Sign Reading Time Taken Comments Blood Pressure 133/63 01/07/2021 3:11 PM CDT Pulse 67 12/29/2021 9:32 AM CDT Temperature - - Respiratory Rate 16 01/07/2021 3:11 PM CDT Oxygen Saturation 94% 12/29/2021 9:32 AM CDT Inhaled Oxygen Concentration - - Weight 99.3 kg (219 lb) 12/29/2021 9:32 AM CDT Height 177.8 cm (5' 10) 12/29/2021 9:32 AM CDT Body Mass Index 31.42 12/29/2021 9:32 AM CDT Plan of Treatment Health Maintenance Due Date Last Done Comments Hep C Screening (Preventive Services) 1945 Medicare Welcome Visit 1945 RSV (1 - 1-dose 75+ series) 2022 DTaP/Tdap/Td (2 - Tdap) 04/09/2023 04/09/2013 COVID-19 Vaccine ( season) 2024 07/05/2021, 11/25/2020, 10/28/2020 Influenza (#1) 2024 07/05/2021, 04/12, 06/18/2019, Additional history exists Pneumococcal 65+ Yrs Completed 02/24/2015, 04/09/20 13 Zoster/Shingles Completed 10/01/2020, 05/02/2020 HepA Aged Out No longer eligi ble based on patient's age to complete this topic HepB Aged Out No longer eligi ble based on patient's age to complete this topic Hib Aged Out No longer eligi ble based on patient's age to complete this topic IPV (Polio) Aged Out No longer eligi ble based on patient's age to complete this topic RSV Aged Out No longer eligi ble based on patient's age to complete this topic MCV4 Aged Out No longer eligi ble based on patient's age to complete this topic Care Teams Cte Teacher Relationship Specialty Start Date End Date Bryce Hicks MD [address] [place] [address] PCP - General Family Practice 07/23/20
--- OUTSIDE RECORDS SUMMARY | 2024-08-05 13:06 | XMS_ITS | Clinical Summary ---
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 Gender Identity Not on file Sexual Orientation Not on file Plan of Treatment Health Maintenance Due Date Last Done Comments ADVANCE CARE PLANNING 1945 ANNUAL REVIEW OF HM ORDERS 1945 GLUCOSE 1945 HEPATITIS C SCREENING 1965 LIPID 1987 FALL RISK ASSESSMENT 2012 MEDICARE ANNUAL WELLNESS VISIT 2012 RSV VACCINE (1 - 1-dose 75+ series) 2022 DTAP/TDAP/TD IMMUNIZATION (2 - Td or Tdap) 04/09/2023 04/09/2013 PHQ-2 (once per calendar year) 2023 COVID-19 Vaccine ( season) 2024 07/05/2021, 11/25/2020, 10/28/2020 INFLUENZA VACCINE (#1) 2024 , 05/02/2020, 06/18/2019, Additional history exists COLONOSCOPY Discontinued 01/27/2005 COLORECTAL CANCER SCREENING Discontinued Pneumococcal Vaccine: 65+ Years Completed 02/24/2015, 04/09/2013 ZOSTER IMMUNIZATION Completed 10/01/2020, [address] CT COLONOGRAPHY Discontinued FIT Discontinued FLEX SIG Discontinued HPV IMMUNIZATION Aged Out No longer e ligible based on patient's age to complete this topic MENINGITIS IMMUNIZATION Aged Out No l onger eligible based on patient's age to complete this topic RSV MONOCLONAL ANTIBODY Aged Out No l onger eligible based on patient's age to complete this topic sDNA (Cologuard) Discontinued Procedures Procedure Name Priority Date/Time Associated Diagnosis Comments COLONOSCOPY Routine 01/27/2005 2:10 PM CDT from Last 3 Months or Most Recently Relevant to Health Maintenance Results * COLONOSCOPY (01/27/2005 2:10 PM CDT) COLONOSCOPY [facility] Patient Name: Jacek Velez Gender: M Exam Date: 01/27/2005 02:10 PM [...] Most Recently Relevant to Health Maintenance Insurance [employer] Care Teams Shearer Screen Measurer And Trimmer Relationship Specialty Start Date End Date [facility], [facility] [address] [facility] [place] [address] PCP - General 03/06/18
== END 2024-08-05 13:04 | disposition home or self-care (01) ==
PROVIDERS: PCP Family Medicine; Visit Provider Family Medicine
DX: Z20.1 Contact with and (suspected) exposure to tuberculosis (principal); J90 Pleural effusion, not elsewhere classified
CPT/HCPCS: 71046

== ENCOUNTER 2024-08-30 08:42 | Outpatient (CLI) | payer OTHER, SELFPAY | END 2024-08-30 08:43 | disposition home or self-care (01) | LOC: NFLDREF 08-31 00:01 | PROVIDERS: PCP Family Medicine; Referring Provider Family Medicine; Visit Provider Family Medicine | DX: E11.9 Type 2 diabetes mellitus without complications (principal); E78.00 Pure hypercholesterolemia, unspecified; Z79.4 Long term (current) use of insulin | CPT/HCPCS: 80053; 80061; 82043; 82570 ==

== ENCOUNTER 2024-10-21 12:40 | Outpatient (CLI) | payer OTHER, SELFPAY | END 2024-10-21 12:41 | disposition home or self-care (01) | LOC: NFLDREF 10-25 03:01 | PROVIDERS: PCP Family Medicine; Referring Provider Family Medicine; Visit Provider Family Medicine | DX: E11.22 Type 2 diabetes mellitus with diabetic chronic kidney disease (principal); I12.9 Hypertensive chronic kidney disease with stage 1 through stage 4 chronic kidney disease, or unspecified chronic kidney disease; N18.32 Chronic kidney disease, stage 3b; Z79.85 Long-term (current) use of injectable non-insulin antidiabetic drugs | CPT/HCPCS: 80048; 82043; 82570; 84443; G0103 ==

== ENCOUNTER 2024-12-03 07:07 | Outpatient (CLI) | payer OTHER, SELFPAY | END 2024-12-03 07:08 | disposition home or self-care (01) | LOC: US 07:08 | PROVIDERS: PCP Family Medicine; Visit Provider Family Medicine | DX: Z13.6 Encounter for screening for cardiovascular disorders (principal) | CPT/HCPCS: 76775 ==

== ENCOUNTER 2024-12-19 08:03 | Outpatient (CLI) | payer OTHER, SELFPAY | END 2024-12-19 08:04 | disposition home or self-care (01) | LOC: NFLDREF 12-23 18:22 | PROVIDERS: PCP Family Medicine; Referring Provider Family Medicine; Visit Provider Internal Medicine Nephrology | DX: N18.32 Chronic kidney disease, stage 3b (principal) | CPT/HCPCS: 80048 ==

== ENCOUNTER 2025-02-11 08:38 | Outpatient (CLI) | payer OTHER, SELFPAY | END 2025-02-11 08:39 | disposition home or self-care (01) | LOC: NFLDREF 02-13 14:43 | PROVIDERS: PCP Family Medicine; Referring Provider Family Medicine; Visit Provider Internal Medicine Nephrology | DX: N18.32 Chronic kidney disease, stage 3b (principal); E11.9 Type 2 diabetes mellitus without complications; I10 Essential (primary) hypertension; E78.00 Pure hypercholesterolemia, unspecified | CPT/HCPCS: 80048; 82043; 82570 ==

== ENCOUNTER 2025-02-19 09:21 | Outpatient (CLI) | payer OTHER, SELFPAY | END 2025-02-19 09:22 | disposition home or self-care (01) | LOC: NFLDREF 02-20 22:46 | PROVIDERS: PCP Family Medicine; Referring Provider Family Medicine; Visit Provider Family Medicine | DX: E03.9 Hypothyroidism, unspecified (principal) | CPT/HCPCS: 84443 ==

== ENCOUNTER 2025-05-23 08:05 | Outpatient (CLI) | payer OTHER, SELFPAY | END 2025-05-23 08:06 | disposition home or self-care (01) | LOC: NFLDREF 18:44 | PROVIDERS: PCP Family Medicine; Referring Provider Family Medicine; Visit Provider Internal Medicine Nephrology | DX: N18.32 Chronic kidney disease, stage 3b (principal) | CPT/HCPCS: 80069; 82043; 82570 ==

== ENCOUNTER 2025-07-23 08:01 | Outpatient (CLI) | payer OTHER, SELFPAY | END 2025-07-23 08:02 | disposition home or self-care (01) | LOC: INJ CL 08:02 | PROVIDERS: PCP Family Medicine; Visit Provider Nurse Anesthetist, Certified Registered | DX: M54.16 Radiculopathy, lumbar region (principal) | CPT/HCPCS: 64483; J0665; J1100; Q9966 ==

== ENCOUNTER 2025-08-08 23:33 | Emergency (ER) | payer OTHER, SELFPAY ==
--- OUTSIDE RECORDS SUMMARY | 2025-07-22 08:19 | XMS_ITS | Encounter Summary ---
Author Organization [facility] Address [address] [place] [address] Care Team Providers Care Tub Rider Name Role Phone Elsewhere, Pcp Primary Care Provider Unavailabl e Encounter Details Date Type Department Care Team (Latest Contact Info) Description 07/22/2025 8:19 AM AUTOMATIC NAILING MACHINE OPERATOR - 07/22/2025 11:59 PM [facility] Hospital Encounter Department of Laboratory Medicine in [place], [place] [address] [place] [address] Mohinder Turk M.D. [address] [place] [address] Transplant Lung (HCC) Discharge Disposition: Home or Self Care Social History Tobacco Use Types Packs/Day Years Used Date Smoking Tobacco: Former Cigarettes 7.9 0 10/06/1962 - 08/22/1970 Smokeless Tobacco: Never Comments:I have a lung trans plant so i don t know Alcohol Use Standard Drinks/Week Comments Not Currently 0 (1 standard drink = 0.6 oz pur e alcohol) [facility] Utilities Answer Date Recorded In the past 12 months has e electric, gas, oil, or water company threatened to shut off services in your home? No 12/26/2024 Humiliation, Afraid, Rape, and Kick questionnair e Answer Date Recorded Within the last year, have y ou been afraid of your partner or ex-partner? No 03/18/2022 Within the last year, have y ou been humiliated or emotionally abused in other ways by your partner or ex-partner? No Within the last year, have y ou been kicked, hit, slapped, or otherwise physically hurt by your partner or ex-partner? No 03/18/2022 Within the last year, have y ou been raped or forced to have any kind of sexual activity by your partner or ex-partner? No 03/18/2022 Hunger Vital Sign Answer Date Recorded Within the past 12 months, y ou worried that your food would run out before you got the money to buy more. Never true 12/27/19 25 Within the past 12 months, t he food you bought just didn't last and you didn't have money to get more. Never true 12/26/2024 PRAPARE - Transportation Answer Date Re corded In the past 12 months, has l ack of transportation kept you from medical appointments or from getting medications? No 12/10 In the past 12 months, has l ack of transportation kept you from meetings, work, or from getting things needed for daily living? No 12/26/2024 Depression Answer Date Recor ded PHQ-9 Total Score (max 27) 1 01/23 Housing Stability Answer Date Recorded What is your living situation today? I have a [facility] place to live 12/26/2024 Education Answer Date Recorded What is the highest level of school you have completed or the highest degree you have received? 12th grade 03/18/2022 Sex and Gender Information Value Date Recorded Sex Assigned at Male 02/28/2022 1:12 PM CDT Legal Sex Male 4:43 PM AUTOMATIC NAILING MACHINE OPERATOR Gender Identity Male 05/03/2018 12:46 PM CDT Sexual Orientation Straight 05/03/2018 12 :46 PM CDT documented as of this encounter Medications at Time of Discharge acetaminophen (TYLENOL) 500 mg tablet Take 2 tablets (1,000 mg total) by mouth every 6 (six) hours. 05/19/2023 azaTHIOprine (Azasan) 75 mg tablet TAKE ONE TABLET BY MOUTH ONE TIME DAILY 90 tablet 3 02/04/2025 azithromycin (Zithromax) 250 mg tabletIndications:T ransplant Lung (HCC) Take 1 tablet by mouth 3 times a week on Monday, Monday and Monday 39 tablet 3 10/09/2024 cholecalciferol, vitamin D3, (VITAMIN D3) 50 mcg (2,000 Unit) tablet Take 50 mcg by mouth every morning. 05/05/2023 Eliquis 2.5 mg tabletIndications:T ransplant Lung (HCC),Atrial Fibrillation Other Persistent (HCC) TAKE ONE TABLET BY MOUTH TWICE DAILY 180 tablet 3 02/04/2025 furosemide (Lasix) 20 mg tabletIndications:T ransplant Lung (HCC) TAKE 1 TABLET (20 MG TOTAL) BY MOUTH ONCE DAILY NEEDED (EDEMA). 90 tablet 02/26/2025 iron,carbonyl-vitam in C (Vitron-C) 65 mg iron- [address] tablet Take 1 tablet by mouth daily. 12/21/2023 levothyroxine (SYNTHROID, LEVOTHROID) 112 mcg tabletIndications:H ypothyroidism Take 1 tablet (112 mcg total) by mouth every morning before breakfast. 90 tablet 3 05/05/2023 magnesium oxide (Mag-Ox) 400 mg (241.3 mg magnesium) tabletIndications:T ransplant Lung (HCC) Take 1 tablet (400 mg total) by mouth 2 (two) times a day before breakfast and dinner 180 tablet 3 10/21/2024 mometasone 0.033 %-ipratropium 0.02 %-diphenhydramine 0.033 % nasal spray Administer 2 sprays into each nostril 2 (two) times a day. 84 mL 3 04/22/2025 1:15 PM CDT 04/16/2025 multivitamin renal failure (Dialyvite) 100-1 mg tablet Take 1 tablet by mouth daily with evening meal. 90 tablet 3 01/06/2025 pantoprazole (PROTONIX) 40 mg EC tablet TAKE 1 TABLET BY MOUTH AT BEDTIME 90 tablet 2 05/23/2022 predniSONE (Deltasone) 5 mg tabletIndications:T ransplant Lung (HCC) TAKE ONE TABLET BY MOUTH ONE TIME DAILY 90 tablet 07/11/2025 rosuvastatin (CRESTOR) 5 mg tabletIndications:T ransplant Double Lung (HCC) TAKE 1 TABLET BY MOUTH EVERY NIGHT AT BEDTIME 90 tablet 3 06/09/2022 semaglutide (Rybelsus) 7 mg tablet tabletIndications:D iabetes Mellitus Type 2 (HCC),Transplant Lung (HCC) Take 1 tablet (7 mg total) by mouth daily. 90 tablet 3 12/14/2023 sodium zirconium cyclosilicate (Lokelma) 5 gram packet Take 5 g by mouth 3 (three) times a week. 12 packet 11 11/20/2024 sulfamethoxazole-tr imethoprim (Bactrim) 400-80 mg per tabletIndications:T ransplant Lung (HCC) TAKE ONE TABLET BY MOUTH ONE TIME DAILY 90 tablet 3 02/21/2025 tacrolimus (Prograf) 1 mg capsuleIndications: Transplant Lung (HCC) Take 2 capsules (2 mg total) by mouth 2 (two) times a day 360 capsule 3 02/20/2025 tiZANidine (ZANAFLEX) 4 mg tablet Take 4 mg by mouth every 8 (eight) hours as needed for muscle spasms. 01/22/2024 valsartan (Diovan) 80 mg tablet Take 80 mg by mouth 2 (two) times a day. vitamins A,C,E-nloo-smzidf (PreserVision AREDS) 7,160 Units-113 mg-100 Units per tablet Take 2 tablets by mouth daily. documented as of this encounter Plan of Treatment Upcoming Encounters Date Type Department Care Team (Late st Contact Info) Description 08/19/2025 8:10 AM AUTOMATIC NAILING MACHINE OPERATOR Appointment Department of Laboratory Medicine in [address] [address] Mohinder Turk M.D. [address] [place] [address] 09/16/2025 8:20 AM AUTOMATIC NAILING MACHINE OPERATOR Appointment Department of Laboratory Medicine in [address] [address] Mohinder Turk M.D. [address] [place] [address] 10/21/2025 8:20 AM AUTOMATIC NAILING MACHINE OPERATOR Appointment Department of Laboratory Medicine in [address] [place] [address] Mohinder Turk M.D. [address] [place] [phone] 11/18/2025 8:20 AM CDT Appointment Department of Laboratory Medicine in [address] [place] [phone] Mohinder Turk M.D. [address] [place] [phone] documented as of this encounter Procedures Procedure Name Priority Date/Time Associated Diagnosis Comments TACROLIMUS LEVEL, B Routine 07/22/2025 8 :31 AM AUTOMATIC NAILING MACHINE OPERATOR Transplant Lung (HCC) CBC WITH DIFFERENTIAL, B Routine 07/22/2025 8:31 AM AUTOMATIC NAILING MACHINE OPERATOR Transplant Lung (HCC) MAGNESIUM, S Routine 07/22/2025 8:31 AM AUTOMATIC NAILING MACHINE OPERATOR Transplant Lung (HCC) BASIC METABOLIC PANEL, S/P Routine 07/22/2025 8:31 AM AUTOMATIC NAILING MACHINE OPERATOR Transplant Lung (HCC) documented in this encounter Results * Tacrolimus, Trough (07/22/2025 8:31 AM AUTOMATIC NAILING MACHINE OPERATOR) Tacrolimus, Trough 7.3 5.0-15.0 (Trough) ng/mL 07/23/2025 9:58 AM [facility] Comment: ----ADDITIONAL INFORMATION---- Target steady-state trough concentrations vary depending on the type of transplant, concomitant immunosuppression, clinical/institutional protocols, and time post-transplant. Results should be interpreted in conjunction with this clinical information and any physical signs/symptoms of rejection/toxicity. Testing performed by Liquid Chromatography-Tandem Mass Spectrometry (LC-MS/MS). This test was developed and its performance characteristics determined by [facility] in a manner consistent with CLIA requirements. This test has not been cleared or approved by the U.S. Food and Drug Administration. Blood (Blood, Venous) 07/22/2025 8:31 AM AUTOMATIC NAILING MACHINE OPERATOR 07/23/2025 7:15 AM AUTOMATIC NAILING MACHINE OPERATOR us Mohinder Turk M.D. LAB BLOOD NON ADD-ON Final R esult [facility] [address] [place] [address] [facility] [address] [place] [address] [place] [address] * Magnesium (07/22/2025 8:31 AM AUTOMATIC NAILING MACHINE OPERATOR) Magnesium, P 2.1 1.7 - 2.3 mg/dL 07/22/2025 11:04 AM AUTOMATIC NAILING MACHINE OPERATOR OWAT Blood (Blood, Venous) 07/22/2025 8:31 AM AUTOMATIC NAILING MACHINE OPERATOR 07/22/2025 10:44 AM AUTOMATIC NAILING MACHINE OPERATOR us Mohinder Turk M.D. LAB BLOOD ADD-ON Final Resul t Performing Organization Address City/[facility] Co de Phone Number [facility] [address] [place] [phone], [facility] OWAT [facility] [place] [address] [place] [id number] * (ABNORMAL) CBC with Differential, Blood (07/22/2025 8:31 AM AUTOMATIC NAILING MACHINE OPERATOR) Hemoglobin 12.0(L) 13.2 - 16.6 g/dL 07/22/2025 10:45 AM AUTOMATIC NAILING MACHINE OPERATOR OWAT Hematocrit 36.2(L) 38.3 - 48.6 % 07/22/2025 10:45 AM AUTOMATIC NAILING MACHINE OPERATOR OWAT Erythrocytes 3.80(L) 4.35 - 5.65 x10(12)/L 07/22/2025 10:45 AM AUTOMATIC NAILING MACHINE OPERATOR OWAT MCV 95.3 78.2 - 97.9 fL 07/22/2025 10:45 AM AUTOMATIC NAILING MACHINE OPERATOR OWAT RBC Distrib Width 15.0(H) 11.8 - 14.5 % 07/22/2025 10:45 AM AUTOMATIC NAILING MACHINE OPERATOR OWAT Platelet Count 146 135 - 317 x10(9)/L 07/22/2025 10:45 AM AUTOMATIC NAILING MACHINE OPERATOR OWAT Leukocytes 7.4 3.4 - 9.6 x10(9)/L 07/22/2025 10:45 AM AUTOMATIC NAILING MACHINE OPERATOR OWAT Neutrophils 5.75 1.56 - 6.45 x10(9)/L 07/22/2025 10:45 AM AUTOMATIC NAILING MACHINE OPERATOR OWAT Lymphocytes 0.71(L) 0.95 - 3.07 x10(9)/L 07/22/2025 10:45 AM AUTOMATIC NAILING MACHINE OPERATOR OWAT Monocytes 0.76 0.26 - 0.81 x10(9)/L 07/22/2025 10:45 AM AUTOMATIC NAILING MACHINE OPERATOR OWAT Eosinophils 0.15 0.03 - 0.48 x10(9)/L 07/22/2025 10:45 AM AUTOMATIC NAILING MACHINE OPERATOR OWAT Basophils <0.03 0.01 - 0.08 x10(9)/L 07/22/2025 10:45 AM AUTOMATIC NAILING MACHINE OPERATOR OWAT Blood (Blood, Venous) 07/22/2025 8:31 AM AUTOMATIC NAILING MACHINE OPERATOR 07/22/2025 10:35 AM AUTOMATIC NAILING MACHINE OPERATOR us Mohinder Turk M.D. LAB BLOOD ADD-ON Final Resul t [facility] [address], [place] [address], [facility] OWAT [facility] in [place] [address], [place] [address] * (ABNORMAL) Basic Metabolic Panel (07/22/2025 8:31 AM AUTOMATIC NAILING MACHINE OPERATOR) Potassium, P 5.3(H) 3.6 - 5.2 mmol/L 07/22/2025 11:04 AM AUTOMATIC NAILING MACHINE OPERATOR OWAT Sodium, P 137 135 - 145 mmol/L 07/22/2025 11:04 AM AUTOMATIC NAILING MACHINE OPERATOR OWAT Chloride, P 102 98 - 107 mmol/L 07/22/2025 11:04 AM AUTOMATIC NAILING MACHINE OPERATOR OWAT Bicarbonate, P 23 22 - 29 mmol/L 07/22/2025 11:04 AM AUTOMATIC NAILING MACHINE OPERATOR OWAT Anion Gap, P 12 7 - 15 07/22/2025 11:04 AM AUTOMATIC NAILING MACHINE OPERATOR OWAT BUN (Blood Urea Nitrogen), P 34(H) 8 - 24 mg/dL 07/22/2025 11:04 AM AUTOMATIC NAILING MACHINE OPERATOR OWAT Creatinine 1.80(H) 0.74 - 1.35 mg/dL 07/22/2025 11:04 AM AUTOMATIC NAILING MACHINE OPERATOR OWAT Estimated GFR (eGFR) 38(L) >=60 mL/min/BSA 07/22/2025 11:04 AM AUTOMATIC NAILING MACHINE OPERATOR OWAT Comment: Estimated GFR calculated using the 2020 CKD_EPI creatinine equation. Calcium, Total, P 9.4 8.8 - 10.2 mg/dL 07/22/2025 11:04 AM AUTOMATIC NAILING MACHINE OPERATOR OWAT Glucose, P 111 70 - 140 mg/dL 07/22/2025 11:04 AM AUTOMATIC NAILING MACHINE OPERATOR OWAT Blood (Blood, Venous) 07/22/2025 8:31 AM AUTOMATIC NAILING MACHINE OPERATOR 07/22/2025 10:44 AM AUTOMATIC NAILING MACHINE OPERATOR us Mohinder Turk M.D. LAB BLOOD ADD-ON Final Resul t [facility] [address] [place] [address], [facility] OWAT [facility] [place] [address] [place] [address] documented in this encounter Visit Diagnoses Diagnosis Transplant Lung (HCC) documented in this encounter Additional Health Concerns Infection Onset Date Last Indicated Resolved Time Protective Environment 12/16/2022 12/16/2022 Assessment Noted Time PHQ-9 Depression Total Score: 1 01/24/20 24 7:51 AM CDT documented as of this encounter Care Teams Tub Rider Relationship Specialty Start Date End Date Elsewhere, Pcp PCP - General Family Medicine 05/18/23 Jodie Santiago French PolisherOil Well Cable Tool Driller Review Committee, Other 05/31/22 [facility] Laboratory Medicine 08/09/22 Dr Shilpi Barry. [facility] Cardiovascular Diseases 01/15/24 documented as of this encounter
--- OUTSIDE RECORDS SUMMARY | 2025-07-22 08:19 | XMS_ITS | Encounter Summary ---
Author Organization [facility] Address [address] [place] [address] Care Team Providers Care Clerical Grader Name Role Phone Elsewhere, Pcp Primary Care Provider Unavailabl e Encounter Details Date Type Department Care Team (Latest Contact Info) Description 07/22/2025 8:19 AM SORTER PACKER - 07/22/2025 11:59 PM [facility] Hospital Encounter Department of Laboratory Medicine in [place], [place] [address] [place] [address] Mohinder Turk M.D. [address] [place] [address] Transplant Lung (HCC) Discharge Disposition: Home or Self Care Social History Tobacco Use Types Packs/Day Years Used Date Smoking Tobacco: Former Cigarettes 7.9 0 10/06/1962 - 08/22/1970 Smokeless Tobacco: Never Comments:I have a lung trans plant so i don t know Alcohol Use Standard Drinks/Week Comments Not Currently 0 (1 standard drink = 0.6 oz pur e alcohol) [facility] Utilities Answer Date Recorded In the past [...] your living situation today? I have a [facility] place to live 12/26/2024 Education Answer Date Recorded What is the highest level of school you have completed or the highest degree you have received? 12th grade 03/18/2022 Sex and Gender Information Value Date Recorded Sex Assigned at Male 02/28/2022 1:12 PM CDT Legal Sex Male 4:43 PM SORTER PACKER Gender Identity Male 05/03/2018 12:46 PM CDT [...] mouth 2 (two) times a day. vitamins A,C,Z-pjph-gkffjb (PreserVision AREDS) 7,160 Units-113 mg-100 Units per tablet Take 2 tablets by mouth daily. documented as of this encounter Plan of Treatment Upcoming Encounters Date Type Department Care Team (Late st Contact Info) Description 08/19/2025 8:10 AM SORTER PACKER Appointment Department of Laboratory Medicine in [address] [address] Mohinder Turk M.D. [address] [place] [address] 09/16/2025 8:20 AM SORTER PACKER Appointment Department of Laboratory Medicine in [address] [address] Mohinder Turk M.D. [address] [place] [address] 10/21/2025 8:20 AM SORTER PACKER Appointment Department of Laboratory Medicine in [address] [place] [address] Mohinder Turk M.D. [address] [place] [phone] 11/18/2025 8:20 AM CDT Appointment Department of Laboratory Medicine in [address] [place] [phone] Mohinder Turk M.D. [address] [place] [phone] documented as of this encounter Procedures Procedure Name Priority Date/Time Associated Diagnosis Comments TACROLIMUS LEVEL, B Routine 07/22/2025 8 :31 AM SORTER PACKER Transplant Lung (HCC) CBC WITH DIFFERENTIAL, B Routine 07/22/2025 8:31 AM SORTER PACKER Transplant Lung (HCC) MAGNESIUM, S Routine 07/22/2025 8:31 AM SORTER PACKER Transplant Lung (HCC) BASIC METABOLIC PANEL, S/P Routine 07/22/2025 8:31 AM SORTER PACKER Transplant Lung (HCC) documented in this encounter Results * Tacrolimus, Trough (07/22/2025 8:31 AM SORTER PACKER) Tacrolimus, Trough 7.3 5.0-15.0 (Trough) ng/mL 07/23/2025 9:58 AM [facility] Comment: ----ADDITIONAL INFORMATION---- Target steady-state trough concentrations vary depending on the type of transplant, concomitant immunosuppression, clinical/institutional protocols, and time post-transplant. Results should be interpreted in conjunction with this clinical information and any physical signs/symptoms of rejection/toxicity. Testing performed by Liquid Chromatography-Tandem Mass Spectrometry (LC-MS/MS). This test was developed and its performance characteristics determined by [facility] in a manner consistent with CLIA requirements. This test has not been cleared or approved by the U.S. Food and Drug Administration. Blood (Blood, Venous) 07/22/2025 8:31 AM SORTER PACKER 07/23/2025 7:15 AM SORTER PACKER us Mohinder Turk M.D. LAB BLOOD NON ADD-ON Final R esult [facility] [address] [place] [address] [facility] [address] [place] [address] [place] [address] * Magnesium (07/22/2025 8:31 AM SORTER PACKER) Magnesium, P 2.1 1.7 - 2.3 mg/dL 07/22/2025 11:04 AM SORTER PACKER OWAT Blood (Blood, Venous) 07/22/2025 8:31 AM SORTER PACKER 07/22/2025 10:44 AM SORTER PACKER us Mohinder Turk M.D. LAB BLOOD ADD-ON Final Resul t Performing Organization Address City/[facility] Co de Phone Number [facility] [address] [place] [address], [place] OWAT [facility] [place] [address] [place] [phone] * (ABNORMAL) CBC with Differential, Blood (07/22/2025 8:31 AM SORTER PACKER) Hemoglobin 12.0(L) 13.2 - 16.6 g/dL 07/22/2025 10:45 AM SORTER PACKER OWAT Hematocrit 36.2(L) 38.3 - 48.6 % 07/22/2025 10:45 AM SORTER PACKER OWAT Erythrocytes 3.80(L) 4.35 - 5.65 x10(12)/L 07/22/2025 10:45 AM SORTER PACKER OWAT MCV 95.3 78.2 - 97.9 fL 07/22/2025 10:45 AM SORTER PACKER OWAT RBC Distrib Width 15.0(H) 11.8 - 14.5 % 07/22/2025 10:45 AM SORTER PACKER OWAT Platelet Count 146 135 - 317 x10(9)/L 07/22/2025 10:45 AM SORTER PACKER OWAT Leukocytes 7.4 3.4 - 9.6 x10(9)/L 07/22/2025 10:45 AM SORTER PACKER OWAT Neutrophils 5.75 1.56 - 6.45 x10(9)/L 07/22/2025 10:45 AM SORTER PACKER OWAT Lymphocytes 0.71(L) 0.95 - 3.07 x10(9)/L 07/22/2025 10:45 AM SORTER PACKER OWAT Monocytes 0.76 0.26 - 0.81 x10(9)/L 07/22/2025 10:45 AM SORTER PACKER OWAT Eosinophils 0.15 0.03 - 0.48 x10(9)/L 07/22/2025 10:45 AM SORTER PACKER OWAT Basophils <0.03 0.01 - 0.08 x10(9)/L 07/22/2025 10:45 AM SORTER PACKER OWAT Blood (Blood, Venous) 07/22/2025 8:31 AM SORTER PACKER 07/22/2025 10:35 AM SORTER PACKER us Mohinder Turk M.D. LAB BLOOD ADD-ON Final Resul t [facility] [address] [place] [address], [place] [facility] [place] [address] [place] [address] * (ABNORMAL) Basic Metabolic Panel (07/22/2025 8:31 AM SORTER PACKER) Potassium, P 5.3(H) 3.6 - 5.2 mmol/L 07/22/2025 11:04 AM SORTER PACKER OWAT Sodium, P 137 135 - 145 mmol/L 07/22/2025 11:04 AM SORTER PACKER OWAT Chloride, P 102 98 - 107 mmol/L 07/22/2025 11:04 AM SORTER PACKER OWAT Bicarbonate, P 23 22 - 29 mmol/L 07/22/2025 11:04 AM SORTER PACKER OWAT Anion Gap, P 12 7 - 15 07/22/2025 11:04 AM SORTER PACKER OWAT BUN (Blood Urea Nitrogen), P 34(H) 8 - 24 mg/dL 07/22/2025 11:04 AM SORTER PACKER OWAT Creatinine 1.80(H) 0.74 - 1.35 mg/dL 07/22/2025 11:04 AM SORTER PACKER OWAT Estimated GFR (eGFR) 38(L) >=60 mL/min/BSA 07/22/2025 11:04 AM SORTER PACKER OWAT Comment: Estimated GFR calculated using the 2020 CKD_EPI creatinine equation. Calcium, Total, P 9.4 8.8 - 10.2 mg/dL 07/22/2025 11:04 AM SORTER PACKER OWAT Glucose, P 111 70 - 140 mg/dL 07/22/2025 11:04 AM SORTER PACKER OWAT Blood (Blood, Venous) 07/22/2025 8:31 AM SORTER PACKER 07/22/2025 10:44 AM SORTER PACKER us Mohinder Turk M.D. LAB BLOOD ADD-ON Final Resul t [facility] [address] [place] [address], [place] OW[employer] [facility] [place] [address] [place] [address] documented in this encounter Visit Diagnoses Diagnosis Transplant Lung (HCC) documented in this encounter Additional Health Concerns Infection Onset Date Last Indicated Resolved Time Protective Environment 12/16/2022 12/16/2022 Assessment Noted Time PHQ-9 Depression Total Score: 1 01/24/20 24 7:51 AM CDT documented as of this encounter Care Teams Clerical Grader Relationship Specialty Start Date End Date Elsewhere, Pcp PCP - General Family Medicine 05/18/23 Jodie Santiago Sanitary AidePrimer Waterproofing Machine Operator Review Committee, Other 05/31/22 [facility] Laboratory Medicine 08/09/[address] [facility] Cardiovascular Diseases 01/15/24 documented as of this encounter
--- OUTSIDE RECORDS SUMMARY | 2025-08-04 09:50 | XMS_ITS | Encounter Summary ---
Author Organization [facility] Address [address] [place] [address] Care Team Providers Care Studio Designer Name Role Phone Elsewhere, Pcp Primary Care Provider Unavailabl e Encounter Details Date Type Department Care Team (Latest Contact Info) Description 08/04/2025 9:50 AM INSURANCE COMPLIANCE ANALYST - 08/04/2025 11:59 PM [facility] Hospital Encounter Department of Laboratory Medicine in [place], [place] [address] [place] [address] Frank Hastings M.D. [address] [place] [address] Transplant Lung (HCC); Hyperkalemia Discharge Disposition: Home or Self Care Social History Tobacco Use Types Packs/Day Years Used Date Smoking Tobacco: Former Cigarettes 7.9 0 10/06/1962 - 08/22/1970 Smokeless Tobacco: Never Comments:I have a lung trans plant so i don t know Alcohol Use Standard Drinks/Week Comments Not Currently 0 (1 standard drink = 0.6 oz pur e alcohol) [facility] Utilities Answer Date Recorded In the past 12 months has e [employer], gas, oil, or water company threatened to [...] your living situation today? I have a [facility] to live 12/26/2024 Education Answer Date Recorded What is the highest level of school you have completed or the highest degree you have received? 12th grade 03/18/2022 Sex and Gender Information Value Date Recorded Sex Assigned at Male 02/28/2022 1:12 PM CDT Legal Sex Male 4:43 PM INSURANCE COMPLIANCE ANALYST Gender Identity Male 05/03/2018 12:46 PM CDT [...] mouth 2 (two) times a day. vitamins A,C,P-rjpw-hjhagi (PreserVision AREDS) 7,160 Units-113 mg-100 Units per tablet Take 2 tablets by mouth daily. documented as of this encounter Plan of Treatment Upcoming Encounters Date Type Department Care Team (Late st Contact Info) Description 08/19/2025 8:10 AM INSURANCE COMPLIANCE ANALYST Appointment Department of Laboratory Medicine in [address] [address] Mohinder Turk M.D. 200 [place] [address] 09/16/2025 8:20 AM INSURANCE COMPLIANCE ANALYST Appointment Department of Laboratory Medicine in [address] [address] Mohinder Turk M.D. [address] [place] [phone] 10/21/2025 8:20 AM INSURANCE COMPLIANCE ANALYST Appointment Department of Laboratory Medicine in [address] [place] [address] Mohinder Turk M.D. [address] [place] [address] 11/18/2025 8:20 AM CDT Appointment Department of Laboratory Medicine in [address] [address] Mohinder Turk M.D. [address] [place] [address] documented as of this encounter Procedures Procedure Name Priority Date/Time Associated Diagnosis Comments POTASSIUM, S/P Routine 08/04/2025 10:00 AM INSURANCE COMPLIANCE ANALYST Transplant Lung (HCC) Hyperkalemia documented in this encounter Results * Potassium (08/04/2025 10:00 AM INSURANCE COMPLIANCE ANALYST) Potassium, P 4.2 3.6 - 5.2 mmol/L 08/04/2025 1:35 PM INSURANCE COMPLIANCE ANALYST OWAT Blood (Blood, Venous) 08/04/2025 10:00 AM INSURANCE COMPLIANCE ANALYST 08/04/2025 1:02 PM INSURANCE COMPLIANCE ANALYST us Frank Hastings M.D. LAB BLOOD ADD-ON Final Result [facility] [address] [place] [address], [facility] OWAT [facility] in [place] [address] [place] [address] documented in this encounter Visit Diagnoses Diagnosis Transplant Lung (HCC) Hyperkalemia documented in this encounter Additional Health Concerns Infection Onset Date Last Indicated Resolved Time Protective Environment 12/16/2022 12/16/2022 Assessment Noted Time PHQ-9 Depression Total Score: 1 01/24/20 24 7:51 AM CDT documented as of this encounter Care Teams Studio Designer Relationship Specialty Start Date End Date Elsewhere, Pcp PCP - General Family Medicine 05/18/23 Jodie Santiago Qa ConsultantGround Crew Lines Person Review Committee, Other 05/31/22 [facility] Laboratory Medicine 08/09/22 Dr Shilpi Barry. [place] [facility] Cardiovascular Diseases 01/15/24 documented as of this encounter
--- OUTSIDE RECORDS SUMMARY | 2025-08-04 09:50 | XMS_ITS | Encounter Summary ---
Author Organization [facility] Address [address] [place] [address] Care Team Providers Care Farmworker Chicken Farm Name Role Phone Elsewhere, Pcp Primary Care Provider Unavailabl e Encounter Details Date Type Department Care Team (Latest Contact Info) Description 08/04/2025 9:50 AM MANDREL MAKER - 08/04/2025 11:59 PM [facility] Hospital Encounter Department of Laboratory Medicine in [place], [place] [address] [place] [address] Frank Hastings M.D. [address] [place] [address] Transplant Lung (HCC); Hyperkalemia Discharge Disposition: Home or Self Care Social History Tobacco Use Types Packs/Day Years Used Date Smoking Tobacco: Former Cigarettes 7.9 0 10/06/1962 - 08/22/1970 Smokeless Tobacco: Never Comments:I have a lung trans plant so i don t know Alcohol Use Standard Drinks/Week Comments Not Currently 0 (1 standard drink = 0.6 oz pur e alcohol) [facility] Utilities Answer Date Recorded In the past 12 months has e [employer], gas, oil, or water company threatened to [...] your living situation today? I have a [facility] place to live 12/26/2024 Education Answer Date Recorded What is the highest level of school you have completed or the highest degree you have received? 12th grade 03/18/2022 Sex and Gender Information Value Date Recorded Sex Assigned at Male 02/28/2022 1:12 PM CDT Legal Sex Male 4:43 PM MANDREL MAKER Gender Identity Male 05/03/2018 12:46 PM CDT [...] mouth 2 (two) times a day. vitamins A,C,J-ulej-kggcvo (PreserVision AREDS) 7,160 Units-113 mg-100 Units per tablet Take 2 tablets by mouth daily. documented as of this encounter Plan of Treatment Upcoming Encounters Date Type Department Care Team (Late st Contact Info) Description 08/19/2025 8:10 AM MANDREL MAKER Appointment Department of Laboratory Medicine in [address] [address] Mohinder Turk M.D. 200 [place] [address] 09/16/2025 8:20 AM MANDREL MAKER Appointment Department of Laboratory Medicine in [address] [address] Mohinder Turk M.D. [address] [place] [phone] 10/21/2025 8:20 AM MANDREL MAKER Appointment Department of Laboratory Medicine in [address] [place] [address] Mohinder Turk M.D. [address] [place] [address] 11/18/2025 8:20 AM CDT Appointment Department of Laboratory Medicine in [address] [address] Mohinder Turk M.D. [address] [place] [address] documented as of this encounter Procedures Procedure Name Priority Date/Time Associated Diagnosis Comments POTASSIUM, S/P Routine 08/04/2025 10:00 AM MANDREL MAKER Transplant Lung (HCC) Hyperkalemia documented in this encounter Results * Potassium (08/04/2025 10:00 AM MANDREL MAKER) Potassium, P 4.2 3.6 - 5.2 mmol/L 08/04/2025 1:35 PM MANDREL MAKER OWAT Blood (Blood, Venous) 08/04/2025 10:00 AM MANDREL MAKER 08/04/2025 1:02 PM MANDREL MAKER us Frank Hastings M.D. LAB BLOOD ADD-ON Final Result [facility] [address] [place] [address], [facility] OWAT [facility] in [place] [address] [place] [address] documented in this encounter Visit Diagnoses Diagnosis Transplant Lung (HCC) Hyperkalemia documented in this encounter Additional Health Concerns Infection Onset Date Last Indicated Resolved Time Protective Environment 12/16/2022 12/16/2022 Assessment Noted Time PHQ-9 Depression Total Score: 1 01/24/20 24 7:51 AM CDT documented as of this encounter Care Teams Farmworker Chicken Farm Relationship Specialty Start Date End Date Elsewhere, Pcp PCP - General Family Medicine 05/18/23 Jodie Santiago Motorboat Mechanic Inboard/OutboardCommercial Counsel Review Committee, Other 05/31/22 [facility] Laboratory Medicine 08/09/22 Dr Shilpi Barry. [place] [facility] Cardiovascular Diseases 01/15/24 documented as of this encounter
--- OUTSIDE RECORDS SUMMARY | 2025-08-08 23:35 | XMS_ITS | Encounter Summary ---
Author Organization [facility] Address [address] [place] [address] Care Team Providers Care Layboy Tender Name Role Phone Elsewhere, Pcp Primary Care Provider Unavailabl e Reason for Visit * Reason Comments Med Refill Encounter Details Date Type Department Care Team (Late st Contact Info) Description 07/10/2025 [facility] [place], [place] [address] [place] [address] Mohinder Turk M.D. [address] [place] [phone] Med Refill Social History Tobacco Use Types Packs/Day Years Used Date Smoking Tobacco: Former Cigarettes 7.9 0 10/06/1962 - 08/22/1970 Smokeless Tobacco: Never Comments:I have a lung trans plant so i don t know Alcohol Use Standard Drinks/Week Comments Not Currently 0 (1 standard drink = 0.6 oz pur e alcohol) [facility] Utilities Answer Date Recorded In the [...] your living situation today? I have a [facility] place to live 12/26/2024 Education Answer Date Recorded What is the highest level of school you have completed or the highest degree you have received? 12th grade 03/18/2022 Sex and Gender Information Value Date Recorded Sex Assigned at Male 02/28/2022 1:12 PM CDT Legal Sex Male 4:43 PM SATELLITE TV INSTALLER Gender Identity Male 05/03/2018 12:46 PM CDT Sexual Orientation Straight 05/03/2018 12 :46 PM CDT documented as of this encounter Plan of Treatment Upcoming Encounters Date Type Department Care Team (Late st Contact Info) Description 08/19/2025 8:10 AM SATELLITE TV INSTALLER Appointment Department of Laboratory Medicine in [address] [address] Mohinder Turk M.D. [address] [place] [address] 09/16/2025 8:20 AM SATELLITE TV INSTALLER Appointment Department of Laboratory Medicine in [address] [address] Mohinder Turk M.D. [address] [place] [address] 10/21/2025 8:20 AM SATELLITE TV INSTALLER Appointment Department of Laboratory Medicine in [address] [address] Mohinder Turk M.D. [address] [place] [address] 11/18/2025 8:20 AM CDT Appointment Department of Laboratory Medicine in [address] [address] Mohinder Turk M.D. [address] [place] [phone] documented as of this encounter Visit Diagnoses Diagnosis Transplant Lung (HCC) documented in this encounter Additional Health Concerns Infection Onset Date Last Indicated Resolved Time Protective Environment 12/16/2022 12/16/2022 Assessment Noted Time PHQ-9 Depression Total Score: 1 01/24/20 24 7:51 AM CDT documented as of this encounter Care Teams Layboy Tender Relationship Specialty Start Date End Date Elsewhere, Pcp PCP - General Family Medicine 05/18/23 Jodie Santiago Orthopedic PodiatristMining Detail Draftsperson Review Committee, Other 05/31/22 [facility] Laboratory Medicine 08/09/22 Dr Shilpi Barry. [place] [facility] Cardiovascular Diseases 01/15/24 documented as of this encounter
--- OUTSIDE RECORDS SUMMARY | 2025-08-08 23:35 | XMS_ITS | Encounter Summary ---
Author Organization [facility] Address [address] [place] [address] Care Team Providers Care Assistant Media Planner Name Role Phone Elsewhere, Pcp Primary Care Provider Unavailabl e Encounter Details Date Type Department Care Team (Late st Contact Info) Description 11/15/2024 Orders Only Division of Endocrinology in [place], [place] [address] [place] [address] [facility], Provider, Type 2 diabetes mellitus Social History Tobacco Use Types Packs/Day Years Used Date Smoking Tobacco: Former Cigarettes 7.9 0 10/06/1962 - 08/22/1970 Smokeless Tobacco: Never Alcohol Use Standard Drinks/Week Comments Not Currently 0 (1 standard drink = 0.6 oz pur e alcohol) Humiliation, Afraid, Rape, and Kick questionnair e [...] the money to buy more. Never true 05/16/20 23 Within the past 12 months, t he food you bought just didn't last and you didn't have money to get more. Never true 05/16/2023 PRAPARE - Transportation Answer Date Re corded In the past 12 months, has l ack of transportation kept you from medical appointments or from getting medications? No 01/2023 In the past 12 months, has l ack of transportation kept you from meetings, work, or from getting things needed for daily living? No 05/16/2023 Depression Answer Date Recor ded PHQ-9 Total Score (max 27) 1 01/23 Housing Stability Answer Date Recorded What is your living situation today? [facility] to live 05/16/2023 Education Answer Date Recorded What is the highest level of school you have completed or the highest degree you have received? 12th grade 03/18/2022 Sex and Gender Information Value Date Recorded Sex Assigned at Male 02/28/2022 1:12 PM CDT Legal Sex Male 4:43 PM CORRECTIONAL OFFICER Gender Identity Male 05/03/2018 12:46 PM CDT Sexual Orientation Straight 05/03/2018 12 :46 PM CDT documented as of this encounter Plan of Treatment Upcoming Encounters Date Type Department Care Team (Late st Contact Info) Description 08/19/2025 8:10 AM CORRECTIONAL OFFICER Appointment Department of Laboratory Medicine in [address] [address] Mohinder Turk M.D. 200 [place] [address] 09/16/2025 8:20 AM CORRECTIONAL OFFICER Appointment Department of Laboratory Medicine in [address] [address] Mohinder Turk M.D. 200 [place] [address] 10/21/2025 8:20 AM CORRECTIONAL OFFICER Appointment Department of Laboratory Medicine in [address] [address] Mohinder Turk M.D. [address] [place] [address] 11/18/2025 8:20 AM CDT Appointment Department of Laboratory Medicine in [place], [place] [address] [place] [address] Mohinder Turk M.D. [address] [place] [address] documented as of this encounter Visit Diagnoses Diagnosis Type 2 diabetes mellitus documented in this encounter Additional Health Concerns Infection Onset Date Last Indicated Resolved Time Protective Environment 12/16/2022 12/16/2022 Assessment Noted Time PHQ-9 Depression Total Score: 1 01/24/20 24 7:51 AM CDT documented as of this encounter Care Teams Assistant Media Planner Relationship Specialty Start Date End Date Elsewhere, Pcp PCP - General Family Medicine 05/18/23 Jodie Santiago Construction Administrative AssistantAssembler Cards And Announcements Review Committee, Other 05/31/22 [facility] Laboratory Medicine 08/09/[address] [facility] Cardiovascular Diseases 01/15/24 documented as of this encounter
--- OUTSIDE RECORDS SUMMARY | 2025-08-08 23:35 | XMS_ITS | Clinical Summary ---
Author Organization [facility] Address [address] [place] [address] Care Team Providers Care Cork Wirer Name Role Phone Bryce Hicks MD Primary Care Provider [phone] Source Comments You are receiving this document as you are listed as the primary care provider,follow-up provider, or the patient has been referred to you for consultation.This is in compliance with the Medicare andSt. [facility] Hospital[facility] EHR Incentive Program,which states Providers who transition their patient to another setting of careor provider of care or refers their patient to another provider of care shouldprovide summary care record for each transition of care or referral. [employer] Allergies Active Allergy Reactions Criticality Noted Date Comments Amitriptyline Dizziness 07/28/2020 Ciprofloxacin Rash 08/19/2016 Latex Rash 03/23/2018 C-pap leaves burn josie on face from latex mask Levofloxacin Swelling 08/19/2016 Swollen joints Sulfamethoxazole-Trimethoprim High 2017 Medications XARELTO 20 MG tablet TK 1 T PO D WITH MEAL 0 Active allopurinol (ZYLOPRIM) 300 MG tablet TK 1 T PO D 0 Active atorvastatin (LIPITOR) 40 MG tablet TK 1 T PO HS 0 Active omeprazole (PRILOSEC) 40 MG capsule TK 1 C PO D 0 Active levothyroxine (SYNTHROID) 137 MCG tablet TK 1 T PO D 0 Active metFORMIN XR (GLUCOPHAGE XR) 500 MG 24 hour release tablet Take 1,000 mg by mouth daily. 1 Active metoprolol succinate (TOPROL XL) 25 MG 24 hour release tablet Take 20 mg by mouth. Active nabumetone (RELAFEN) 500 MG tablet Take 1,000 mg by mouth. Active nystatin (MYCOSTATIN) 887067 UNIT/GM cream APPLY TOPICALLY TO THE AFFECTED AREA 2 TO 3 TIMES PER DAY Active propafenone (RYTHMOL) 150 MG tablet TAKE ONE TABLET BY MOUTH EVERY EIGHT HOURS. discontinue flecainide. 1 Active Active Problems Problem Noted Date Diagnosed Date Chronic respiratory failure with hypoxia 022 Hypoxia 10/06/2021 Irritable larynx syndrome 01/07/2021 Chronic throat clearing 01/07/2021 Chronic cough 07/23/2020 ILD (interstitial lung disease) 07/23/2020 Immunizations Immunization Administration Dates Next Due Moderna Monovalent 12+ 11/25/2020,10/28/2020 Social History Tobacco Use Types Packs/Day Years Used Date Smoking Tobacco: Former Cigarettes 2 Q uit: 1970 Smokeless Tobacco: Never Alcohol Use Standard Drinks/Week Comments Not Currently 0 (1 standard drink = 0.6 oz pur e alcohol) Sex and Gender Information Value Date Recorded Sex Assigned at Not on file Legal Sex Male 10:56 AM CDT Gender Identity Not on file Sexual Orientation [...] Services) 1945 Medicare Welcome Visit 1945 RSV Vaccine (1 - 1-dose 75+ series) 2022 DTaP/Tdap/Td Vaccine (2 - Tdap) 04/09/2023 04/09/2013 COVID-19 Vaccine (4 - 5-26 season) 2025 07/05/2021, 11/25/2020, 10/28/2020 Influenza Vaccine (#1) 2025 , 05/02/2020, 06/18/2019, Additional history exists Pneumococcal Vaccine 50+ Yrs Completed 02/24/2015, 04/09/2013 Zoster/Shingles Vaccine Completed 10/01/2020, 05/02 HepA Vaccine Aged Out No longer eligi ble based on patient's age to complete this topic HepB Vaccine Aged Out No longer eligi ble based on patient's age to complete this topic Hib Vaccine Aged Out No longer eligi ble based on patient's age to complete this topic IPV (Polio) Vaccine Aged Out No longe r eligible based on patient's age to complete this topic MCV4 Vaccine Aged Out No longer eligi ble based on patient's age to complete this topic Meningococcal B Vaccine Aged Out No l onger eligible based on patient's age to complete this topic [place] [id number] MEDICARE ADVANTAGE Care Teams Cork Wirer Relationship Specialty Start Date End Date Bryce Hicks MD [address] [facility] [place], [place] [id number] PCP - General Family Practice 07/23/20
--- OUTSIDE RECORDS SUMMARY | 2025-08-08 23:36 | XMS_ITS ---
Author Organization [facility] Address [address] [place] [address] Care Team Providers Care Chief Controller Center Name Role Phone Elsewhere, Pcp Primary Care Provider Unavailabl e Transplant Episode Lung Recipient [facility] ([place], [place]) - [facility] Organs Received: Left Lung, Right Lung Transplanted on 05/10/2022 Marked as Active Follow-up on 05/10/2022 Lung CoordinatorDanis Cagle R.N., C.C.T.C. 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 Infection History Noted Survival Infection Treatment Organism Resolved 06/27/2022 48 days Infection Pseudomonas Donor Information Organ ABO Source Meets Risk Criteria HLA Match Mismatches Cross Match Left Lung Transplanted A DBD No A: B: DR: Right Lung Transplanted A DBD No A: B: DR: Left Lung Donor Serology Results Anti-HBcAb HBC Total: Negative HBsAg HBsAg: Negative HBsAb HBsAb: Not Done HBV DNA No results on file Anti-HCV HCV: Negative HCV RNA No results on file HAV No results on file Anti-HIV I/II HIV-1: Negative HIV Ag/Ab Combo Assay: Not Done HIV RNA HIV CHANG: Negative Anti-HTLV I/II HTLV: Not Done Coccidioides No results on file Anti-CMV CMV IgG: Negative Quantiferon TB No results on file EBV Total No results on file EBV IgG EBV VCA IgG: Positive EBV IgM EBV VCA IgM: Negative EBNA EBNA IgG: Not Done Measles No results on file Mumps No results on file Rubella No results on file Varicella Zoster No results on file HSV 1 No results on file HSV 2 No results on file Toxoplasm a Toxoplasm a IgG: Negative Cryptococcus Ag No results on file Histoplasma No results on file Strongyloides No results on file Schistoso ma No results on file Trypanosoma cruzi No results on file RPR/VDRL RPR: Negative Syphilis No results on file RSV No results on file SARS CoV-2 No results on file HBV CHANG HBV CHANG: Negative HCV CHANG HCV CHANG: Negative Right Lung Donor Serology Results Anti-HBcAb HBC Total: Negative HBsAg HBsAg: Negative HBsAb HBsAb: Not Done HBV DNA No results on file Anti-HCV HCV: Negative HCV RNA No results on file HAV No results on file Anti-HIV I/II HIV-1: Negative HIV Ag/Ab Combo Assay: Not Done HIV RNA HIV CHANG: Negative Anti-HTLV I/II HTLV: Not Done Coccidioides No results on file Anti-CMV CMV IgG: Negative Quantiferon TB No results on file EBV Total No results on file EBV IgG EBV VCA IgG: Positive EBV IgM EBV VCA IgM: Negative EBNA EBNA IgG: Not Done Measles No results on file Mumps No results on file Rubella No results on file Varicella Zoster No results on file HSV 1 No results on file HSV 2 No results on file Toxoplasm a Toxoplasm a IgG: Negative Cryptococcus Ag No results on file Histoplasma No results on file Strongyloides No results on file Schistoso ma No results on file Trypanosoma cruzi No results on file RPR/VDRL RPR: Negative Syphilis No results on file RSV No results on file SARS CoV-2 No results on file HBV CHANG HBV CHANG: Negative HCV CHANG HCV CHANG: Negative Care Team Name Role Phone Fax Email Danis Cagle R.N., C.C.T.C. Lung Coordinator [phone] N/A [email or web address] Bolaños M.D., M.B.A. Transplant Surgeon [phone] [email or web address] [email or web address] Referral Referring Provider N/A N/A N/A Mohinder Turk M.D. Transplant Clinical Pharmacist [phone] [email or web address] Post-Transplant Pre-Transplant Admitted: 05/09/2022 Referred: 12/03/2021 Transplanted: 05/10/2022 Evaluation began: 2 Discharged: 05/24/2022 Committee: 03/15/2022 Center waitlisted: 2
--- OUTSIDE RECORDS SUMMARY | 2025-08-08 23:36 | XMS_ITS | Encounter Summary ---
Author Organization [facility] Address [address] [place] [address] Care Team Providers Care Underground Bolting Machine Operator Name Role Phone Elsewhere, Pcp Primary Care Provider Unavailabl e Reason for Visit * Reason Onset Date Comments Results 08/06/2025 Encounter Details Date Type Department Care Team (Latest Contact Info) Description 08/06/2025 Clinical Communication Cosmo Toscano [facility] in [place], [place] [address] [place] [address] Danis Cagle, R.N., C.C.T.C. Results Social History Tobacco Use Types Packs/Day Years Used Date Smoking Tobacco: Former Cigarettes 7.9 0 10/06/1962 - 08/22/1970 Smokeless Tobacco: Never Comments:I have a lung trans plant so i don t know Alcohol Use Standard Drinks/Week Comments Not Currently 0 (1 standard drink = 0.6 oz pur e alcohol) [facility] Utilities Answer Date Recorded In the [...] your living situation today? I have a [facility] place to live 12/26/2024 Education Answer Date Recorded What is the highest level of school you have completed or the highest degree you have received? 12th grade 03/18/2022 Sex and Gender Information Value Date Recorded Sex Assigned at Male 02/28/2022 1:12 PM CDT Legal Sex Male 4:43 PM INVESTIGATIVE AGENT Gender Identity Male 05/03/2018 12:46 PM CDT Sexual Orientation Straight 05/03/2018 12 :46 PM CDT documented as of this encounter Miscellaneous Notes * Telephone Encounter - Danis Cagle R.N., C.C.T.C. - 08/06/2025 9:54 AM CST Transplant Date: 05/10/2022 (Lung) Reason for review: Follow up after medication change: serge desouza Reason for exclusion from lab review guideline: medication change Recent Labs 08/04/25 1000 07/22/25 0831 06/17/25 0832 05/23/25 0803 05/22/25 0843 HGB -- 12.0 L 12.2 L 11.6 L 11.6 L HCT -- 36.2 L 37.0 L 35.0 L 35.3 L WBC -- 7.4 8.2 6.75 7.7 NEUTROPHILS -- 5.75 6.42 -- 5.92 CREATININE -- 1.80 H 1.96 H 1.9 H 1.96 H PLT -- 146 173 135 L 161 GLUCOSE -- 111 122 119 H 108 NA -- 137 139 140 138 KPLASMA 4.2 5.3 H 4.8 -- 4.7 EXTK -- -- -- 4.6 -- MG -- 2.1 1.9 -- 2.2 CO2 -- -- -- 24 -- BICARB -- 23 21 L -- 22 BUN -- 34 H 43 H 43 H 41 H Please advise on recommendations. Thank you, Danis Cagle R.N., C.C.T.C. STIGATIVE AGENT documented in this encounter Plan of Treatment Upcoming Encounters Date Type Department Care Team (Late st Contact Info) Description 08/19/2025 8:10 AM INVESTIGATIVE AGENT Appointment Department of Laboratory Medicine in [address] [phone] Mohinder Turk M.D. [address] [place] [phone] 09/16/2025 8:20 AM INVESTIGATIVE AGENT Appointment Department of Laboratory Medicine in [address] [phone] Mohinder Turk M.D. [address] [place] [phone] 10/21/2025 8:20 AM INVESTIGATIVE AGENT Appointment Department of Laboratory Medicine in [address] [phone] Mohinder Turk M.D. [address] [place] [address] 11/18/2025 8:20 AM CDT Appointment Department of Laboratory Medicine in [place] [address] [place] [address] Mohinder Turk M.D. [address] [place] [address] documented as of this encounter Visit Diagnoses Not on filedocumented in this encounter Additional Health Concerns Infection Onset Date Last Indicated Resolved Time Protective Environment 12/16/2022 12/16/2022 Assessment Noted Time PHQ-9 Depression Total Score: 1 01/24/20 24 7:51 AM CDT documented as of this encounter Care Teams Underground Bolting Machine Operator Relationship Specialty Start Date End Date Elsewhere, Pcp PCP - General Family Medicine 05/18/23 Jodie Santiago Dispatcher Motor VehicleSous Chef Kitchen Manager Review Committee, Other 05/31/22 [facility] Laboratory Medicine 08/09/22 Dr Shilpi Barry. [facility] Cardiovascular Diseases 01/15/24 documented as of this encounter
--- OUTSIDE RECORDS SUMMARY | 2025-08-08 23:36 | XMS_ITS | Encounter Summary ---
Author Organization [facility] Address [address] [place] [address] Care Team Providers Care Packaging Coordinator Name Role Phone Elsewhere, Pcp Primary Care Provider Unavailabl e Reason for Visit * Reason Onset Date Comments Appts Requests 07/30/2025 Encounter Details Date Type Department Care Team (Latest Contact Info) Description 07/30/2025 Clinical Communication Cosmo Toscano [facility] in [place], [place] [address] [place] [address] Danis Cagle, R.N., C.C.T.C. Appts Requests Social History Tobacco Use Types Packs/Day Years Used Date Smoking Tobacco: Former Cigarettes 7.9 0 10/06/1962 - 08/22/1970 Smokeless Tobacco: Never Comments:I have a lung trans plant so i don t know Alcohol Use Standard Drinks/Week Comments Not Currently 0 (1 standard drink = 0.6 oz pur e alcohol) [facility] Utilities Answer Date Recorded In the past [...] living situation today? I have a [facility] place to live 12/26/2024 Education Answer Date Recorded What is the highest level of school you have completed or the highest degree you have received? 12th grade 03/18/2022 Sex and Gender Information Value Date Recorded Sex Assigned at Male 02/28/2022 1:12 PM CDT Legal Sex Male 4:43 PM PCAT INSTRUCTOR Gender Identity Male 05/03/2018 12:46 PM CDT Sexual Orientation Straight 05/03/2018 12 :46 PM CDT documented as of this encounter Plan of Treatment Upcoming Encounters Date Type Department Care Team (Late st Contact Info) Description 08/19/2025 8:10 AM PCAT INSTRUCTOR Appointment Department of Laboratory Medicine in [address] [phone] Mohinder Turk M.D. [address] [place] [address] 09/16/2025 8:20 AM PCAT INSTRUCTOR Appointment Department of Laboratory Medicine in [address] [address] Mohinder Turk M.D. [address] [place] [phone] 10/21/2025 8:20 AM PCAT INSTRUCTOR Appointment Department of Laboratory Medicine in [address] [address] Mohinder Turk M.D. [address] [place] [phone] 11/18/2025 8:20 AM CDT Appointment Department of Laboratory Medicine in [address] [phone] Mohinder Turk M.D. [address] [place] [phone] documented as of this encounter Visit Diagnoses Not on filedocumented in this encounter Additional Health Concerns Infection Onset Date Last Indicated Resolved Time Protective Environment 12/16/2022 12/16/2022 Assessment Noted Time PHQ-9 Depression Total Score: 1 01/24/20 24 7:51 AM CDT documented as of this encounter Care Teams Packaging Coordinator Relationship Specialty Start Date End Date Elsewhere, Pcp PCP - General Family Medicine 05/18/23 Jodie Santiago Assembly LoaderChristian Counselor Review Committee, Other 05/31/22 [facility] Laboratory Medicine 08/09/22 Dr Shilpi Barry. [facility] Cardiovascular Diseases 01/15/24 documented as of this encounter
--- OUTSIDE RECORDS SUMMARY | 2025-08-08 23:36 | XMS_ITS | Encounter Summary ---
Author Organization [facility] Address [address] [place] [address] Care Team Providers Care Lockstitch Sleeve Maker Name Role Phone Elsewhere, Pcp Primary Care Provider Unavailabl e Reason for Referral * Outpatient (Routine) - Closed Specialty Diagnoses / Procedures Referred By Contac t Referred To Contact Cardiovascular Disease Diagnoses Atrial Fibrillation Unspecified (HCC) Hypertension NOS Bryce Hicks M.D. Phone: tel: fax: [facility] Referral ID Status Reason Start Date Expiration Date Visits Re quested Visits Authorized [id number] Closed 02/15/2018 02/15/2019 1 1 Encounter Details Date Type Department Care Team (Latest Contact Info) Description 02/15/2018 [facility] [address] [place] [phone] Bryce Hicks M.D. [address] [place] [phone] Fibrillation Atrial (HCC) (Primary Dx); Hypertension NOS Social History Tobacco Use Types Packs/Day Years Used Date Smoking Tobacco: Former Sex and Gender Information Value Date Recorded Sex Assigned at Male 02/28/2022 1:12 PM CDT Legal Sex Male 4:43 PM SOFTWARE SUPPORT REPRESENTATIVE Gender Identity Male 05/03/2018 12:46 PM CDT Sexual Orientation Straight 05/03/2018 12 :46 PM CDT documented as of this encounter Plan of Treatment Upcoming Encounters Date Type Department Care Team (Late st Contact Info) Description 08/19/2025 8:10 AM SOFTWARE SUPPORT REPRESENTATIVE Appointment Department of Laboratory Medicine in [address] [phone] Mohinder Turk M.D. [address] [place] [phone] 09/16/2025 8:20 AM SOFTWARE SUPPORT REPRESENTATIVE Appointment Department of Laboratory Medicine in [address] [phone] Mohinder Turk M.D. [address] [place] [phone] 10/21/2025 8:20 AM SOFTWARE SUPPORT REPRESENTATIVE Appointment Department of Laboratory Medicine in [address] [phone] Mohinder Turk M.D. [address] [place] [phone] 11/18/2025 8:20 AM CDT Appointment Department of Laboratory Medicine in [address] [phone] Mohinder Turk M.D. [address] [place] [phone] Scheduled Referrals Name Type Priority Associated Diagnoses Order Schedule Cardiovascular Diseases Referral Outpatient Referral Routine Fibrillation Atrial (HCC) Hypertension NOS Expected: 02/15/2018 (Approximate), Expires: 02/15/2021 documented as of this encounter Visit Diagnoses Diagnosis Atrial Fibrillation Unspecified (HCC)- Primary Hypertension NOS documented in this encounter Additional Health Concerns Infection Onset Date Last Indicated Resolved Time COVID19 Pending 03/21/2020 03/21/2020 03/22/2020 1 :00 PM CDT COVID19 Pending 01/24/2022 01/24/2022 01/24/2022 7 :56 PM CDT COVID19 Pending 02/28/2022 02/28/2022 02/28/2022 1 2:12 PM CDT COVID19 Pending 03/03/2022 03/03/2022 03/03/2022 6 :08 PM CDT COVID19 Pending 04/13/2022 04/13/2022 04/13/2022 6 :01 AM CDT COVID19 Pending 05/09/2022 05/09/2022 05/09/2022 7 :24 PM CDT COVID19 Pending 05/09/2022 05/09/2022 05/09/2022 8 :00 PM CDT COVID19 Pending 05/10/2022 05/10/2022 05/10/2022 1 :00 PM CDT COVID19 Pending 05/23/2022 05/23/2022 05/23/2022 6 :05 PM CDT Protective Environment 12/16/2022 12/16/2022 documented as of this encounter Care Teams Lockstitch Sleeve Maker Relationship Specialty Start Date End Date Elsewhere, Pcp PCP - General Family Medicine 05/18/23 Jodie Santiago Associate Software EngineerTravel Pt Review Committee, Other 05/31/22 [facility] Laboratory Medicine 08/09/22 Dr Shilpi Barry. [facility] Cardiovascular Diseases 01/15/24 documented as of this encounter
--- OUTSIDE RECORDS SUMMARY | 2025-08-08 23:36 | XMS_ITS | Clinical Summary ---
Author Organization [facility] Address [address] [place] [address] Care Team Providers Care Senior Investment Analyst Name Role Phone Elsewhere, Pcp Primary Care Provider Unavailabl e Source Comments Patient records contain information from all sites at [facility]. For routine questions regarding patient records, call [phone] during business hours, M-F 8:00 AM - 5:00 PM Central Time. Record requests for emergency care only can be directed to [phone] at any time.[facility] Allergies Active Allergy Reactions Criticality Noted Date Comments Amitriptyline Other (see comments) 07/28/2020 Dizziness; patient does not recall Ciprofloxacin Other (see comments),Rash Low 08/19/2016 Swollen joints Flecainide Shortness of breath (Reselect Reaction),Other (see comments) 06/29/2021 dizziness Levofloxacin Other (see comments),Swelling 08/19/2016 Swollen joints from levaquin Sulfa (Sulfonamide Antibiotics) Other (see comments) High 08/20/2022 was hospitalized Medications * This document contains information received from the source organization and may not represent a complete record from that organization. pantoprazole (PROTONIX) 40 mg EC tablet TAKE 1 TABLET BY MOUTH AT BEDTIME 90 tablet 2 05/23/20 22 Active rosuvastatin (CRESTOR) 5 mg tabletIndication s:Transplant Double Lung (HCC) TAKE 1 TABLET BY MOUTH EVERY NIGHT AT BEDTIME 90 tablet 3 06/09/20 22 Active levothyroxine (SYNTHROID, LEVOTHROID) 112 mcg tabletIndication s:Hypothyroidism Take 1 tablet (112 mcg total) by mouth every morning before breakfast. 90 tablet 3 05/05/20 23 Active Additional Information Patient taking differently: 125 mcgoral Daily before morning meal, Reported on 04/10/2025 cholecalciferol, vitamin D3, (VITAMIN D3) 50 mcg (2,000 Unit) tablet Take 50 mcg by mouth every morning. 05/05/20 23 Active acetaminophen (TYLENOL) 500 mg tablet Take 2 tablets (1,000 mg total) by mouth every 6 (six) hours. 05/19/20 23 Active semaglutide (Rybelsus) 7 mg tablet tabletIndication s:Diabetes Mellitus Type 2 (HCC),Transplant Lung (HCC) Take 1 tablet (7 mg total) by mouth daily. 90 tablet 3 12/14/19 24 Active iron,carbonyl-vi tamin C (Vitron-C) 65 mg iron- [address] tablet Take 1 tablet by mouth daily. 12/21/19 24 Active tiZANidine (ZANAFLEX) 4 mg tablet Take 4 mg by mouth every 8 (eight) hours as needed for muscle spasms. 01/22/20 24 Active valsartan (Diovan) 80 mg tablet Take 80 mg by mouth 2 (two) times a day. Active azithromycin (Zithromax) 250 mg tabletIndication s:Transplant Lung (HCC) Take 1 tablet by mouth 3 times a week on Monday, Monday and Monday 39 tablet 3 10/09/19 25 Active magnesium oxide (Mag-Ox) 400 mg (241.3 mg magnesium) tabletIndication s:Transplant Lung (HCC) Take 1 tablet (400 mg total) by mouth 2 (two) times a day before breakfast and dinner 180 tablet 3 10/21/19 25 Active sodium zirconium cyclosilicate (Lokelma) 5 gram packet Take 5 g by mouth 3 (three) times a week. 12 packet 11 11/21/19 25 Active Additional Information Patient taking differently:5 g oralDaily PRN, Reported on 04/10/2025 multivitamin renal failure (Dialyvite) 100-1 mg tablet Take 1 tablet by mouth daily with evening meal. 90 tablet 3 01/07/20 25 2025 Active Eliquis 2.5 mg tabletIndication s:Transplant Lung (HCC),Atrial Fibrillation Other Persistent (HCC) TAKE ONE TABLET BY MOUTH TWICE DAILY 180 tablet 3 02/05/20 25 Active azaTHIOprine (Azasan) 75 mg tablet TAKE ONE TABLET BY MOUTH ONE TIME DAILY 90 tablet 3 02/05/20 25 Active tacrolimus (Prograf) 1 mg capsuleIndicatio ns:Transplant Lung (HCC) Take 2 capsules (2 mg total) by mouth 2 (two) times a day 360 capsule 3 02/21/20 25 Active sulfamethoxazole -trimethoprim (Bactrim) 400-80 mg per tabletIndication s:Transplant Lung (HCC) TAKE ONE TABLET BY MOUTH ONE TIME DAILY 90 tablet 3 02/22/20 25 Active furosemide (Lasix) 20 mg tabletIndication s:Transplant Lung (HCC) TAKE 1 TABLET (20 MG TOTAL) BY MOUTH ONCE DAILY NEEDED (EDEMA). 90 tablet 02/27/20 25 Active Additional Information Patient taking differently: 20 mg oral Daily PRN, Reported on 04/10/2025 vitamins A,C,G-xbys-njnzo r (PreserVision AREDS) 7,160 Units-113 mg-100 Units per tablet Take 2 tablets by mouth daily. Active mometasone 0.033 %-ipratropium 0.02 %-diphenhydramin e 0.033 % nasal spray Administer 2 sprays into each nostril 2 (two) times a day. 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 Started on Metformin XR. Family history of diabetes in his mother. Hypothyroidism 03/10/2022 Overview (03/10/2022): Diagnosed late . Need Vaccine Immunization Hepatitis B 03/08/2022 Atrial Fibrillation Paroxysmal 03/25/2020 Rhinitis 08/21/2019 Gastroesophageal Reflux Disease 02/28/2019 Dyspnea On Exertion 02/28/2019 Chronic Cough 08/16/2018 Hyperlipidemia 01/25/2017 Overview (03/10/2022): Family history of hyperlipidemia, coronary artery disease, and stroke in his mother. Atrial Fibrillation 11/28/2016 Lung Interstitial Disease 08/26/2016 Resolved Problems Problem Noted Date Diagnosed Date Resolved Date Hypomagnesemia 06/23/2022 09/03/2022 Leukocytosis 05/19/2022 08/31/2022 Pain Postoperative 05/12/2022 2 Acidosis Respiratory 05/12/2022 022 Hypoxia 05/12/2022 08/31/2022 Excess Fluid Volume 05/12/2022 05/23/20 22 Pretransplant Recipient Evaluation Exam 02/02/2022 05/23/2022 Overview (02/02/2022): Added automatically from request for surgery [id number] Encounters Date Type Department Care Team Description 08/06/2025 Clinical Communication Cosmo Toscano [facility] for Transplantation and Clinical Regeneration in [place], [place] [address] [place] [address] Danis Cagle R.N., C.C.T.C. Results 08/04/2025 9:50 AM SPORTS EQUIPMENT REPAIRER - 08/04/2025 11:59 PM SPORTS EQUIPMENT REPAIRER Hospital Encounter Department of Laboratory Medicine in [address] [address] Frank Hastings M.D. Transplant Lung (HCC); Hyperkalemia Discharge Disposition: Home or Self Care 07/30/2025 Clinical Communication [facility] Transplantation and Clinical Regeneration in [place], [place] [address] [place] [address] Danis Cagle R.N., C.C.T.C. Appts Requests 07/23/2025 Orders Only [facility] Transplantation and Clinical Regeneration in [place], [place] [address] [place] [address] Dansi Cagle R.N., C.C.T.C. Transplant Lung (HCC) (Primary Dx); Hyperkalemia 07/23/2025 Clinical Communication [facility] Transplantation and Clinical Regeneration in [place], [place] [address] [place] [address] Danis Cagle R.N., C.C.T.C. Results 07/22/2025 8:19 AM SPORTS EQUIPMENT REPAIRER - 07/22/2025 11:59 PM SPORTS EQUIPMENT REPAIRER Hospital Encounter Department of Laboratory Medicine in [place], [place] [address] [place] [phone] Mohinder Turk M.D. Transplant Lung (HCC) Discharge Disposition: Home or Self Care 07/10/2025 Refill [facility] Transplantation and Clinical Regeneration in [place], [place] [address] [place] [phone] Mohinder Turk M.D. Med Refill 06/17/2025 8:20 AM CDT - 06/17/2025 11:59 PM CDT Hospital Encounter Department of Laboratory Medicine in [place], [place] [address] [place] [phone] Mohinder Turk M.D. Transplant Lung (HCC) Discharge Disposition: Home or Self Care 05/27/2025 10:00 AM CDT External Outreach Division of Nephrology and Hypertension in [place], [place] [address] [place] [phone] Sherrill Chandra M.D., Ph.D. Hypertensive Chronic Kidney Disease With Stage 1 Through Stage 4 Chronic Kidney Disease, Or Unspecified Chronic Kidney Disease; Chronic Kidney Disease (CKD), Stage 3b Glomerular Filtration Rate (GFR) 30 To 44 (HCC); Anemia; Transplant Lung (HCC) 05/23/2025 Orders Only Division of Nephrology and Hypertension in [place], [place] [address] [place] [address] External, Ordering Provider, Mayda 05/23/2025 Orders Only Division of Nephrology and Hypertension in [place], [place] [address] [place] [address] External, Ordering Provider, Mayda 05/22/2025 9:30 AM CDT - 05/22/2025 11:59 PM CDT Hospital Encounter Department of Radiology in [place], [place] [address] [place] [address] Porter Zamudio M.D. Nodule Skin Discharge Disposition: Home or Self Care 05/22/2025 8:20 AM CDT - 05/22/2025 9:29 AM CDT Hospital Encounter Department of Laboratory Medicine in [place], [place] [address] [place] [address] Mohinder Turk M.D. Transplant Lung (HCC) Discharge Disposition: Home or Self Care 05/22/2025 Results Follow-Up [facility] for Transplantation and Clinical Regeneration in [place], [place] [address] [place] [address] Porter Zamudio M.D. US Chest from Last 3 Months Immunizations Immunization Administration Dates Next Due H1N1 All Forms 09/18/2009 HepA Adult 10/10/2022,04/08/2022 HepB Adult 05/06/2022,04/08/2022 HepB Adult (HEPLISAV-B) 05/06/2022,04/08/2022 Influenza TIV (IM) 06/18/2019,07/20/2017 Influenza high dose QV(65 ye ars or older) (PF) 06/12/2023,08/12/2022,07/05/2021,2019 Influenza, Seasonal, Injectable 06/03/2009 PCV13 02/24/2015 PCV20 07/03/2023 PPSV23 04/09/2013 RSV: respiratory syncytial v irus (AREXVY) recombinant vaccine 06/28/2023 RZV (SHINGRIX) 10/01/2020,05/02/2020 Tdap 07/03/2023,04/09/2013 influenza trivalent high dos e (HD)(PF) 05/31/2018,08/12/2016,07/24/2015 influenza vaccine quad (FLUZONE/FLUARIX) (6 months and older)(PF) 06/18/2019,05/31/2018,08/12/2016,2014,09/18/2009,06/03/2009 Family History Medical History Relation Name Comments Alcohol abuse Brother 1 jose alberto Arthritis Brother 1 jose alberto Sleep apnea Brother 1 jose alberto Kidney disease Brother 2 ras Anxiety disorder Daughter brier Depression Daughter brier Psychiatric Daughter brier Alcohol abuse Father samantha Arthritis Father samantha Depression Father samantha Psychiatric Father samantha Rheumatoid arthritis (RA) Father samantha Asthma Mother gamal Coronary artery disease Mother gamal Diabetes Mother gamal Hyperlipidemia (high cholesterol) Mother madalin e Hypertension Mother gamal Osteoporosis Mother gamal Stroke Mother gamal Thyroid disease Mother gamal Transient ischemic attack Mother gamal Diabetes Paternal Grandfather enrico d Suicide attempts Paternal Grandfather enrico Anxiety disorder Sister 1 tali Depression Sister 1 tali Psychiatric Sister 1 tali Rheumatoid arthritis (RA) Sister 1 tali Arthritis Sister 2 era Arthritis Sister 3 karla Thyroid disease Sister 3 karla Breast cancer (in one breast) Sister 4 era sc Breast cancer (in one breast) Sister 5 nov Relation Name Status Comments Brother 1 jose alberto Brother 2 ras Daughter brier Father samantha Mother gamal Paternal Grandfather peter Sister 1 tali Sister 2 era Sister 3 karla Sister 4 era sc Sister 5 nov selvin Social History Tobacco Use Types Packs/Day Years Used Date Smoking Tobacco: Former Cigarettes 7.9 0 10/06/1962 - 08/22/1970 Smokeless Tobacco: Never Tobacco Cessation:Counseling Given: Not Answered Comments:I have a lung transplant so i don t know Alcohol Use Standard Drinks/Week Comments Not Currently 0 (1 standard drink = 0.6 oz pur e alcohol) [facility] Utilities Answer Date Recorded In the past 12 months has th e electric, gas, oil, or water company [...] your living situation today? I have a [facility] place to live 12/26/2024 Education Answer Date Recorded What is the highest level of school you have completed or the highest degree you have received? 12th grade 03/18/2022 Sex and Gender Information Value Date Recorded Sex Assigned at Male 02/28/2022 1:12 PM CDT Legal Sex Male 4:43 PM SPORTS EQUIPMENT REPAIRER Gender Identity Male 05/03/2018 12:46 PM CDT Sexual Orientation Straight 05/03/2018 12 :46 PM CDT Last Filed Vital Signs Vital Sign Reading Time Taken Comments Blood Pressure 130/76 04/16/2025 3:47 PM CDT Pulse 80 04/16/2025 3:47 PM CDT Temperature 36.4 C (97.5 F) 04/16/2025 3:47 PM CDT Respiratory Rate 18 05/19/2023 4:05 AM CDT Oxygen Saturation 97% 04/16/2025 3:47 PM CDT Inhaled Oxygen Concentration - - Weight 96.7 kg (213 lb 3 oz) 04/16/2025 1:00 PM CDT Height 175.9 cm (5' 9.25) 04/16/2025 1:00 PM CD T Body Mass Index 31.25 04/16/2025 1:00 PM CDT Plan of Treatment Upcoming Encounters Date Type Department Care Team (Late st Contact Info) Description 08/19/2025 8:10 AM SPORTS EQUIPMENT REPAIRER Appointment Department of Laboratory Medicine in [address] [phone] Mohinder Turk M.D. [address] [place] [phone] 09/16/2025 8:20 AM SPORTS EQUIPMENT REPAIRER Appointment Department of Laboratory Medicine in [address] [address] Mohinder Turk M.D. [address] [place] [phone] 10/21/2025 8:20 AM SPORTS EQUIPMENT REPAIRER Appointment Department of Laboratory Medicine in [address] [address] Mohinder Turk M.D. [address] [place] [phone] 11/18/2025 8:20 AM CDT Appointment Department of Laboratory Medicine in [address] [address] Mohinder Turk M.D. [address] [place] [address] Health Maintenance Due Date Last Done Comments Diabetic Eye Exam 1945 Diabetic Office Visit with Foot Exam 1945 Office Visit for Blood Pressure Check / Re-check 1945 Depression Screening (Annual PHQ-2) 09/11/2024 COVID-19 Vaccine ( season) 2025 01/17/2025, 06/19/2024, 12/29/2023, Additional history exists Hemoglobin A1C 10/16/2025 04/15/2025, 12/2023, 05/04/2023, Additional history exists Thyroid Stimulating Hormone (TSH) test for thyroid function 04/15/2026 04/15/2025, 02/06/2025, 05/15/2024, Additional history exists Urine Albumin 05/23/2026 05/23/2025, 03/2025, 02/19/2024, Additional history exists Creatinine Level (Kidney Function Test) 07/22/2026 07/22/2025, 06/17/2025, 05/23/2025, Additional history exists Sodium Level 07/22/2026 07/22/2025, 03/2025, 05/23/2025, Additional history exists Potassium Level 08/04/2026 08/04/2025, 07/12, 06/17/2025, Additional history exists DTaP,Tdap,and Td Vaccines (3 - Td or Tdap) 07/03/2033 07/03/2023, 04/09/2013 Colonoscopy Discontinued 11/14/2006 (Perf ormed elsewhere), 01/27/2005 Colorectal Cancer Screening Discontinued Zoster Vaccines Completed 10/01/2020, 05/02/2020 Abdominal Aortic Aneurysm (AAA) Screen Discontinued 03/02/2022 Hepatitis B Vaccines Completed 05/06/2022, 05/06/2022, 04/08/2022, Additional history exists Hepatitis A Vaccines Completed 10/10/2022, 04/08/20 RSV vaccine - (32-36 weeks) or 50+ years Completed 06/28/2023 Pneumococcal vaccine (50+ years) Completed 07/03/2023, 02/24/2015, 04/09/2013 Fall Risk Screen (Annual) Completed 04/15/2025 Influenza Vaccine Completed 07/10/2025, , 06/12/2023, Additional history exists CT Colonography Discontinued Cologuard Discontinued FIT Discontinued HPV Vaccines Aged Out No longer eligi ble based on patient's age to complete this topic IPV Vaccines Aged Out No longer eligi ble based on patient's age to complete this topic Medical Devices Implanted Type Area Marketing Producer Device Identifier Shelf Expiration Date Model / Serial / Lot Hylrnds Rstyl 1ml - [id number] Implanted:Qty: 1 on 05/19/2022 by Sesar Hill M.D. at [facility] Bone or Tissue Left: Vocal Cord QMed Maria D 09/10/2024 [id number] / Description:0.8ml injected Hylrnds Rstyl 1ml - [id number] Implanted:Qty: 1 on 09/29/2022 by Sesar Hill M.D. at [facility] Bone or Tissue QMed Maria D 10/11/20241130411 / Clp Hrzn Ti 6 Clp Lg Orng - [id number] Implanted:Qty: 8 on 05/09/2022 by Barry Bolaños M.D., M.B.A. at [facility] Hardware e.g. pins/screws /rods [employer] [id number] / / Wax Bn Hmst 2.5gr - [id number] Implanted:Qty: 1 on 05/09/2022 by Barry Bolaños M.D., M.B.A. at [facility] Hardware e.g. pins/screws /rods Sternum Ethicon [id number] / / Clp Hrzn Ti 6 Clp Md Ryan - [id number] Implanted:Qty: 4 on 05/09/2022 by Barry Bolaños M.D., M.B.A. at [facility] Hardware e.g. pins/screws /rods Chest [employer] [id number] / / Cbl Cls Zipfix Tss Strnl Ndl - [id number] Implanted:Qty: 1 on 05/09/2022 by Barry Bolaños M.D., M.B.A. at [facility] Hardware e.g. pins/screws /rods Chest Depuy Synthes 1.20S / / Cbl Cls Zipfix Tss Strnl Ndl - [id number] Implanted:Qty: 1 on 05/09/2022 by Barry Bolaños M.D., M.B.A. at [facility] Hardware e.g. pins/screws /rods Chest Depuy Synthes 1.20S / / Scrw Str St Fthrd Gld 2.4x16 - [id number] Implanted:Qty: 8 on 05/09/2022 by Kenneth Jacome M.D. at [facility] Hardware e.g. pins/screws /rods Chest Ney Biomet 73-2416 / / Plt Strnm Str Ryan 4h 2.4 - [id number] Implanted:Qty: 2 on 05/09/2022 by Kenneth Jacome M.D. at [facility] Hardware e.g. pins/screws /rods Chest Ney [employer]omet 73-2636 / / Bloc Synth Jacqueline Frm Lg 1.5x4x7 - [id number] Implanted:Qty: 1 on 05/18/2023 by Nancy Sanders M.D. at [facility] Hardware e.g. pins/screws /rods [employer] 10/25/2024 [id number] Right Hip Implanted:01/09 (Quantity not on file) Hip Implant Right: Hip Description:Device Status Te xt - Hip Imp. Hip replacement February 2016. Procedures Procedure Name Priority Date/Time Associated Diagnosis Comments POTASSIUM, S/P Routine 08/04/2025 10:00 AM SPORTS EQUIPMENT REPAIRER Transplant Lung (HCC) Hyperkalemia TACROLIMUS LEVEL, B Routine 07/22/2025 8:31 AM SPORTS EQUIPMENT REPAIRER Transplant Lung (HCC) MAGNESIUM, S Routine 07/22/2025 8:31 AM SPORTS EQUIPMENT REPAIRER Transplant Lung (HCC) CBC WITH DIFFERENTIAL, B Routine 07/22/2025 8:31 AM SPORTS EQUIPMENT REPAIRER Transplant Lung (HCC) BASIC METABOLIC PANEL, S/P Routine 07/22/2025 8:31 AM SPORTS EQUIPMENT REPAIRER Transplant Lung (HCC) TACROLIMUS LEVEL, B Routine 06/17/2025 8:32 AM CDT Transplant Lung (HCC) MAGNESIUM, S Routine 06/17/2025 8:32 AM CDT Transplant Lung (HCC) CBC WITH DIFFERENTIAL, B Routine 06/17/2025 8:32 AM CDT Transplant Lung (HCC) BASIC METABOLIC PANEL, S/P Routine 06/17/2025 8:32 AM CDT Transplant Lung (HCC) EXTP URINALYSIS WITH MICROSCOPY, URINE Routine 05/23/2025 8:05 AM CDT RENAL FUNCTION PANEL, S Routine 05/23/2025 8:03 AM CDT ALBUMIN, RANDOM, U Routine 05/23/2025 8:03 AM CDT CBC WITH DIFFERENTIAL, B Routine 05/23/2025 8:03 AM CDT US CHEST RAD - Routine (most inpatients and all outpatients) 05/22/2025 10:21 AM CDT Nodule Skin IRON AND TOT IRON-BINDING CAPACITY, S/P Routine 05/22/2025 8:43 AM CDT Transplant Lung (HCC) TACROLIMUS LEVEL, B Routine 05/22/2025 8:43 AM CDT Transplant Lung (HCC) MAGNESIUM, S Routine 05/22/2025 8:43 AM CDT Transplant Lung (HCC) CBC WITH DIFFERENTIAL, B Routine 05/22/2025 8:43 AM CDT Transplant Lung (HCC) BASIC METABOLIC PANEL, S/P Routine 05/22/2025 8:43 AM CDT Transplant Lung (HCC) HEMOGLOBIN A1C, B Routine 04/15/2025 8:1 0 AM CDT Transplant Lung (HCC) THYROID-STIMULATI NG HORMONE-SENSITIVE (S-TSH) Routine 04/15/2025 8:10 AM CDT Transplant Lung (HCC) US ABDOMEN COMPLETE RAD - Routine (most inpatients and all outpatients) 03/02/2022 3:36 PM CDT Lung Interstitial Disease (HCC) Pretransplant Recipient Evaluation Exam Dyspnea On Exertion Atrial Fibrillation (HCC) Chronic Cough from Last 3 Months or Most Recently Relevant to Health Maintenance Results * Potassium (08/04/2025 10:00 AM SPORTS EQUIPMENT REPAIRER) Potassium, P 4.2 3.6 - 5.2 mmol/L 08/04/2025 1:35 PM SPORTS EQUIPMENT REPAIRER OWAT Blood (Blood, Venous) 08/04/2025 10:00 AM SPORTS EQUIPMENT REPAIRER 08/04/2025 1:02 PM SPORTS EQUIPMENT REPAIRER us Frank Hastings M.D. LAB BLOOD ADD-ON Final Result [facility] [address] [place] [address], [facility] in [place] [address] [place] [address] * Tacrolimus, Trough (07/22/2025 8:31 AM SPORTS EQUIPMENT REPAIRER) Only the most recent of3 resultswithin the time period is included. Tacrolimus, Trough 7.3 5.0-15.0 (Trough) ng/mL 07/23/2025 9:58 AM SPORTS EQUIPMENT REPAIRER [facility] Comment: ----ADDITIONAL INFORMATION---- Target steady-state trough concentrations vary depending on the type of transplant, concomitant immunosuppression, clinical/institutional protocols, and time post-transplant. Results should be interpreted in conjunction with this clinical information and any physical signs/symptoms of rejection/toxicity. Testing performed by Liquid Chromatography-Tandem Mass Spectrometry (LC-MS/MS). This test was developed and its performance characteristics determined by [facility] in a manner consistent with CLIA requirements. This test has not been cleared or approved by the U.S. Food and Drug Administration. Blood (Blood, Venous) 07/22/2025 8:31 AM SPORTS EQUIPMENT REPAIRER 07/23/2025 7:15 AM SPORTS EQUIPMENT REPAIRER us Mohinder Turk M.D. LAB BLOOD NON ADD-ON Final R esult [facility] [place] [address] [place] [address] [facility] [address] [place] [address] [place] [place] [address] * (ABNORMAL) CBC with Differential, Blood (07/22/2025 8:31 AM SPORTS EQUIPMENT REPAIRER) Only the most recent of4 resultswithin the time period is included. Hemoglobin 12.0(L) 13.2 - 16.6 g/dL 07/22/2025 10:45 AM SPORTS EQUIPMENT REPAIRER OWAT Hematocrit 36.2(L) 38.3 - 48.6 % 07/22/2025 10:45 AM SPORTS EQUIPMENT REPAIRER OWAT Erythrocytes 3.80(L) 4.35 - 5.65 x10(12)/L 07/22/2025 10:45 AM SPORTS EQUIPMENT REPAIRER OWAT MCV 95.3 78.2 - 97.9 fL 07/22/2025 10:45 AM SPORTS EQUIPMENT REPAIRER OWAT RBC Distrib Width 15.0(H) 11.8 - 14.5 % 07/22/2025 10:45 AM SPORTS EQUIPMENT REPAIRER OWAT Platelet Count 146 135 - 317 x10(9)/L 07/22/2025 10:45 AM SPORTS EQUIPMENT REPAIRER OWAT Leukocytes 7.4 3.4 - 9.6 x10(9)/L 07/22/2025 10:45 AM SPORTS EQUIPMENT REPAIRER OWAT Neutrophils 5.75 1.56 - 6.45 x10(9)/L 07/22/2025 10:45 AM SPORTS EQUIPMENT REPAIRER OWAT Lymphocytes 0.71(L) 0.95 - 3.07 x10(9)/L 07/22/2025 10:45 AM SPORTS EQUIPMENT REPAIRER OWAT Monocytes 0.76 0.26 - 0.81 x10(9)/L 07/22/2025 10:45 AM SPORTS EQUIPMENT REPAIRER OWAT Eosinophils 0.15 0.03 - 0.48 x10(9)/L 07/22/2025 10:45 AM SPORTS EQUIPMENT REPAIRER OWAT Basophils <0.03 0.01 - 0.08 x10(9)/L 07/22/2025 10:45 AM SPORTS EQUIPMENT REPAIRER OWAT Blood (Blood, Venous) 07/22/2025 8:31 AM SPORTS EQUIPMENT REPAIRER 07/22/2025 10:35 AM SPORTS EQUIPMENT REPAIRER us Mohinder Turk M.D. LAB BLOOD ADD-ON Final Resul t Performing Organization Address City/[facility]/ZIP Co de Phone Number [facility] [address] [place] [address], [facility] in [place] [address], [place] [address] * Magnesium (07/22/2025 8:31 AM SPORTS EQUIPMENT REPAIRER) Only the most recent of3 resultswithin the time period is included. Magnesium, P 2.1 1.7 - 2.3 mg/dL 07/22/2025 11:04 AM SPORTS EQUIPMENT REPAIRER OWAT Blood (Blood, Venous) 07/22/2025 8:31 AM SPORTS EQUIPMENT REPAIRER 07/22/2025 10:44 AM SPORTS EQUIPMENT REPAIRER us Mohinder Turk M.D. LAB BLOOD ADD-ON Final Resul t [facility] [address] [place] [address], [place] OW[place] [facility] [place] [address] [place] [address] * (ABNORMAL) Basic Metabolic Panel (07/22/2025 8:31 AM SPORTS EQUIPMENT REPAIRER) Only the most recent of3 resultswithin the time period is included. Potassium, P 5.3(H) 3.6 - 5.2 mmol/L 07/22/2025 11:04 AM SPORTS EQUIPMENT REPAIRER OWAT Sodium, P 137 135 - 145 mmol/L 07/22/2025 11:04 AM SPORTS EQUIPMENT REPAIRER OWAT Chloride, P 102 98 - 107 mmol/L 07/22/2025 11:04 AM SPORTS EQUIPMENT REPAIRER OWAT Bicarbonate, P 23 22 - 29 mmol/L 07/22/2025 11:04 AM SPORTS EQUIPMENT REPAIRER OWAT Anion Gap, P 12 7 - 15 07/22/2025 11:04 AM SPORTS EQUIPMENT REPAIRER OWAT BUN (Blood Urea Nitrogen), P 34(H) 8 - 24 mg/dL 07/22/2025 11:04 AM SPORTS EQUIPMENT REPAIRER OWAT Creatinine 1.80(H) 0.74 - 1.35 mg/dL 07/22/2025 11:04 AM SPORTS EQUIPMENT REPAIRER OWAT Estimated GFR (eGFR) 38(L) >=60 mL/min/BSA 07/22/2025 11:04 AM SPORTS EQUIPMENT REPAIRER OWAT Comment: Estimated GFR calculated using the 2020 CKD_EPI creatinine equation. Calcium, Total, P 9.4 8.8 - 10.2 mg/dL 07/22/2025 11:04 AM SPORTS EQUIPMENT REPAIRER OWAT Glucose, P 111 70 - 140 mg/dL 07/22/2025 11:04 AM SPORTS EQUIPMENT REPAIRER OWAT Blood (Blood, Venous) 07/22/2025 8:31 AM SPORTS EQUIPMENT REPAIRER 07/22/2025 10:44 AM SPORTS EQUIPMENT REPAIRER us Mohinder Turk M.D. LAB BLOOD ADD-ON Final Resul t [facility] [address] [place] [address], [facility] OWAT [facility] [place] [address] [place] [address] * EXT Urinalysis with Microscopy, Urine (05/23/2025 8:05 AM CDT) Pathologist [facility] EXT Color Yellow Yellow [facility] EXT Appearance, Urine Clear Clear [facility] EXT Glucose Qualitative, Urine Negative Negative [facility] EXT Bilirubin, Urine Negative Negative [facility] EXT Ketones, POCT, Urine Negative Negative [facility] EXT Specific [place], POCT, Urine 1.025 1.000 - 1.030 [facility] EXT Blood, Urine Negative Negative [facility] EXT pH, Random, Urine 5.5 5.0 - 8.5 [facility] EXT Protein, Urine Negative Negative [facility] EXT Urobilinogen, Urine 0.2 0.2 - 1.0 [facility] EXT Nitrite, Urine Negative Negative [facility] EXT Leukocyte Esterase, Urine Negative Negative [facility] 05/23/2025 8:[address] [facility] - 05/23/2025 11:23 AM CDT Source result document attached to Order Number [id number] (CBC WITH DIFFERENTIAL, B) dated 05/23/2025. External results verified in Extract by Ceci Abbott on 05/23/2025 at 11:19 AM. us Ordering Provider External M.Vivian LAB URINE ORDERA BLES Final Result [facility] [address] [place] [address] * (ABNORMAL) Renal Function Panel (05/23/2025 8:03 AM CDT) Pathologist [facility] EXT Sodium 140 135 - 149 mmol/L [facility] EXT Potassium 4.6 3.6 - 5.1 mmol/L [facility] EXT Chloride 109 96 - 114 mmol/L [facility] EXT CO2 24 20 - 32 mmol/L [facility] EXT Anion Gap 7 7 - 15 mEq/L [facility] EXT BUN (Blood Urea Nitrogen) 43(H) 7 - 30 mg/dL [facility] EXT Creatinine 1.9(H) 0.5 - 1.5 mg/dL [facility] EXT Estimated GFR (eGFR) 36 ml/min [facility] EXT Calcium, Total 9.1 8.4 - 10.6 mg/dL [facility] EXT Glucose 119(H) 60 - 115 mg/dL [facility] EXT Albumin 4.0 3.3 - 5.0 g/dL [facility] EXT Phosphorus (Inorganic), S 3.6 2.5 - 4.5 mg/dL [facility] 05/23/2025 8:[address] [facility] - 05/23/2025 1:24 PM CDT External results verified in Extract by Nataly Grubbs on 05/23/2025 at 01:20 PM. us Ordering Provider External M.D. LAB BLOOD ADD-ON Final Result Performing Organization Address City/[facility]/ZIP Co de Phone Number [facility] [address] [place] [address] * Albumin, Random, Urine (05/23/2025 8:03 AM CDT) EXT Creatinine, Urine 160.4 mg/dL [facility] EXT Microalbumin-R andom, U 1 mg/dL [facility] 05/23/2025 8:03 AM CDT Narrative [employer] [facility] - 05/23/2025 11:23 AM CDT Source result document attached to Order Number [id number] (CBC WITH DIFFERENTIAL, B) dated 05/23/2025. External results verified in Extract by Ceci Abbott on 05/23/2025 at 11:20 AM. us Ordering Provider External M.D. LAB URINE ORDERA BLES Final Result [facility] NA 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 Narrative 05/22/2025 10:44 AM CDT EXAM: US CHEST COMPARISON: Chest CT 10/31/2023, 05/04/2023, 09/27/2022 FINDINGS: At the area of palpable abnormality over the left chest along the scar line there are multiple subcutaneous hypoechoic/isoechoic lesions, the largest measures up to 1.1 cm. No internal vascularity. No left axillary lymphadenopathy. Procedure Note Quintin Eaton M.D. - 05/22/2025 EXAM: US CHEST COMPARISON: Chest CT 10/31/2023, 05/04/2023, 09/27/2022 FINDINGS: At the area of palpable abnormality over the left chest alongthe scar line there are multiple subcutaneous hypoechoic/isoechoiclesions, the largest measures up to 1.1 cm. No internal vascularity. Noleft axillary lymphadenopathy. IMPRESSION: Multiple left chest wall lesions are most likely postsurgical fatnecrosis/scarring and have been present on multiple prior chest CTs andlikely unchanged. us Porter Zamudio M.D. IMG US PROCEDURES Final Res ult * Iron and Total Iron-Binding Capacity (05/22/2025 8:43 AM CDT) Iron 87 50 - 150 mcg/dL 05/22/2025 3:30 PM CDT AUST Total Iron Binding Capacity 276 250 - 400 mcg/dL 05/22/2025 3:30 PM CDT AUST Percent Saturation 32 14 - 50 % 05/22/2025 3:30 PM CDT AUST Blood (Blood, Venous) 05/22/2025 8:43 AM CDT 05/22/2025 3:07 PM CDT Mohinder Turk M.D. LAB BLOOD ADD-ON Final Resul t [facility] [address] [place] [address], [facility] AUST [facility] [address] [place] [address] * S-TSH (Thyroid-Stimulating Hormone - Sensitive) (04/15/2025 8:10 AM CDT) TSH, Sensitive 4.0 0.3 - 4.2 mIU/L 04/15/2025 9:59 AM CDT DTL Blood (Blood, Venous) 04/15/2025 8:10 AM CDT 04/15/2025 8:17 AM CDT us Frank Hastings M.D. LAB BLOOD ADD-ON Final Result [facility] [address] [place] [address], [facility] [address] [address] * (ABNORMAL) Hemoglobin A1c (04/15/2025 8:10 AM CDT) Hemoglobin A1c, B 6.1(H) 4.0 - 5.6 % 04/15/2025 8:49 AM CDT DTL Comment: Hemoglobin A1c values of 5.7-6.4 percent indicate an increased risk for developing diabetes mellitus. In diabetic patients, HbA1c goals should be discussed with healthcare provider. Blood (Blood, Venous) 04/15/2025 8:10 AM CDT 04/15/2025 8:20 AM CDT us Frank Hastings M.D. LAB BLOOD ADD-ON Final Result [facility] [address] [place] [address], [facility] [address] [address] * US Abdomen Complete (03/02/2022 3:36 PM CDT) Anatomical Region Laterality Modality Abdomen, Ultrasound RST LOS, Ultrasound ARZ LOS, Ultrasound FLA LOS N/A Ultrasound 03/02/2022 3:40 PM CDT Impressions 03/02/2022 3:43 PM CDT Benign-appearing renal cysts. Limited visualization of the pancreas due to bowel. Otherwise normal abdominal ultrasound. Narrative 03/02/2022 3:43 PM CDT EXAM: US ABDOMEN COMPLETE COMPARISON: None FINDINGS: Liver: Normal appearance. Antegrade flow in the main portal vein. Gallbladder: Normal. Intrahepatic ducts: Not dilated. Common duct: Not dilated. Pancreas: Not well seen due to bowel; normal where seen. Right kidney: Length: 11.3 cm. Normal echogenicity. No hydronephrosis. Benign 2.1 cm cyst Left kidney: Length: 11.7 cm. Normal echogenicity. No hydronephrosis. 2 benign-appearing cysts the largest measuring 3.4 cm. Spleen: Normal. Spleen length: 11.6 cm Aorta: Normal caliber. IVC: Normal where seen. Ascites: None. Procedure Note Stephenie Wells M.D. - 03/02/2022 EXAM: US ABDOMEN COMPLETE COMPARISON: None FINDINGS: Liver: Normal appearance. Antegrade flow in the main portal vein. Gallbladder: Normal. Intrahepatic ducts: Not dilated. Common duct: Not dilated. Pancreas: Not well seen due to bowel; normal where seen. Right kidney: Length: 11.3 cm. Normal echogenicity. No hydronephrosis. Benign 2.1 cmcyst Left kidney: Length: 11.7 cm. Normal echogenicity. No hydronephrosis. 2benign-appearing cysts the largest measuring 3.4 cm. Spleen: Normal. Spleen length: 11.6 cm Aorta: Normal caliber. IVC: Normal where seen. Ascites: None. IMPRESSION: Benign-appearing renal cysts. Limited visualization of the pancreas due tobowel. Otherwise normal abdominal ultrasound. us Veronica Nickerson M.D., M.S. IMG US PROCEDURES Fi nal Result from Last 3 Months or Most Recently Relevant to Health Maintenance Additional Health Concerns Infection Onset Date Last Indicated Protective Environment 12/16/2022 3 [facility] [place] [id number] Advance Directives For more information, please contact: [phone] * Full Code (Latest Code Status on File) Date Activated Date Inactivated Comments 05/18/2023 5:51 PM 05/19/2023 12:21 PM Question Answer Comments Full Code: Not Discussed Due to: Patient not available * Full Code Date Activated Date Inactivated Comments 08/31/2022 4:17 PM 09/04/2022 12:46 PM Question Answer Comments Full Code: Discussed * Full Code Date Activated Date Inactivated Comments 07/19/2022 3:06 PM 07/23/2022 4:16 PM Question Answer Comments Full Code: Discussed * Full Code Date Activated Date Inactivated Comments 05/10/2022 9:07 AM 05/24/2022 2:21 PM Question Answer Comments Full Code: Discussed * Full Code Date Activated Date Inactivated Comments 05/09/2022 5:48 PM 05/10/2022 9:07 AM Question Answer Comments Full Code: Discussed Care Teams Senior Investment Analyst Relationship Specialty Start Date End Date Elsewhere, Pcp PCP - General Family Medicine 05/18/23 Jodie Santiago Coffee GrinderLine Out Man Review Committee, Other 05/31/22 [facility] Laboratory Medicine 08/09/22 Dr Shilpi Barry. [facility] Cardiovascular Diseases 01/15/24
--- OUTSIDE RECORDS SUMMARY | 2025-08-08 23:36 | XMS_ITS | Encounter Summary ---
Author Organization [facility] Address [address] [place] [address] Care Team Providers Care Shoe Folder Name Role Phone Elsewhere, Pcp Primary Care Provider Unavailabl e Encounter Details Date Type Department Care Team (Late st Contact Info) Description 07/23/2025 Orders Only [facility] [place], [place] [address] [place] [address] Danis Cagle, RHienN., C.C.T.C. Transplant Lung (HCC) (Primary Dx); Hyperkalemia Social History Tobacco Use Types Packs/Day Years Used Date Smoking Tobacco: Former Cigarettes 7.9 0 10/06/1962 - 08/22/1970 Smokeless Tobacco: Never Comments:I have a lung trans plant so i don t know Alcohol Use Standard Drinks/Week Comments Not Currently 0 (1 standard drink = 0.6 oz pur e alcohol) [facility] Utilities Answer Date Recorded In the past [...] your living situation today? I have a [facility] place to live 12/26/2024 Education Answer Date Recorded What is the highest level of school you have completed or the highest degree you have received? 12th grade 03/18/2022 Sex and Gender Information Value Date Recorded Sex Assigned at Male 02/28/2022 1:12 PM CDT Legal Sex Male 4:43 PM MS SQL SERVER DEVELOPER Gender Identity Male 05/03/2018 12:46 PM CDT Sexual Orientation Straight 05/03/2018 12 :46 PM CDT documented as of this encounter Plan of Treatment Upcoming Encounters Date Type Department Care Team (Late st Contact Info) Description 08/19/2025 8:10 AM MS SQL SERVER DEVELOPER Appointment Department of Laboratory Medicine in [place] [address] [place] [phone] Mohinder Turk M.D. [address] [place] [address] 09/16/2025 8:20 AM MS SQL SERVER DEVELOPER Appointment Department of Laboratory Medicine in [address] [address] Mohinder Turk M.D. [address] [place] [phone] 10/21/2025 8:20 AM MS SQL SERVER DEVELOPER Appointment Department of Laboratory Medicine in [address] [phone] Mohinder Turk M.D. [address] [place] [phone] 11/18/2025 8:20 AM CDT Appointment Department of Laboratory Medicine in [address] [address] Mohinder Turk M.D. [address] [place] [phone] documented as of this encounter Results * Potassium (08/04/2025 10:00 AM MS SQL SERVER DEVELOPER) Potassium, P 4.2 3.6 - 5.2 mmol/L 08/04/2025 1:35 PM MS SQL SERVER DEVELOPER OWAT Blood (Blood, Venous) 08/04/2025 10:00 AM MS SQL SERVER DEVELOPER 08/04/2025 1:02 PM MS SQL SERVER DEVELOPER us Frank Hastings M.D. LAB BLOOD ADD-ON Final Result [facility] [address] [place] [address], [place] [facility] [place] [address] [place] [address] documented in this encounter Visit Diagnoses Diagnosis Transplant Lung (HCC)- Primary Hyperkalemia documented in this encounter Additional Health Concerns Infection Onset Date Last Indicated Resolved Time Protective Environment 12/16/2022 12/16/2022 Assessment Noted Time PHQ-9 Depression Total Score: 1 01/24/20 24 7:51 AM CDT documented as of this encounter Care Teams Shoe Folder Relationship Specialty Start Date End Date Elsewhere, Pcp PCP - General Family Medicine 05/18/23 Jodie Santiago Rig Builder HelperState Federal Relations Deputy Director Review Committee, Other 05/31/22 [facility] Laboratory Medicine 08/09/22 Dr Shilpi Barry. [facility] Cardiovascular Diseases 01/15/24 documented as of this encounter
--- OUTSIDE RECORDS SUMMARY | 2025-08-08 23:36 | XMS_ITS | Encounter Summary ---
Author Organization [facility] Address [address] [place] [address] Care Team Providers Care Demand Planning Manager Name Role Phone Elsewhere, Pcp Primary Care Provider Unavailabl e Reason for Visit * Reason Onset Date Comments Results 07/23/2025 Encounter Details Date Type Department Care Team (Latest Contact Info) Description 07/23/2025 Clinical Communication Cosmo Toscano [facility] for Transplantation and Clinical Regeneration in [place], [place] [address] [place] [address] Danis Cagle, R.N., C.C.T.C. Results Social History [...] your living situation today? I have a [facility] place to live 12/26/2024 Education Answer Date Recorded What is the highest level of school you have completed or the highest degree you have received? 12th grade 03/18/2022 Sex and Gender Information Value Date Recorded Sex Assigned at Male 02/28/2022 1:12 PM CDT Legal Sex Male 4:43 PM DATABASE SPECIALIST Gender Identity Male 05/03/2018 12:46 PM CDT Sexual Orientation Straight 05/03/2018 12 :46 PM CDT documented as of this encounter Miscellaneous Notes * Telephone Encounter - Danis Cagle R.N., C.C.T.C. - 07/23/2025 2:17 PM CST Transplant Date: 05/10/2022 (Lung) Reason for review: Monthly labs Reason for exclusion from lab review guideline: borderline hyperkalemia Recent treatment or episode of rejection? no Recent Labs 07/22/25 0831 06/17/25 0832 05/23/25 0803 05/22/25 0843 HGB 12.0 L 12.2 L 11.6 L 11.6 L HCT 36.2 L 37.0 L 35.0 L 35.3 L WBC 7.4 8.2 6.75 7.7 NEUTROPHILS 5.75 6.42 -- 5.92 CREATININE 1.80 H 1.96 H 1.9 H 1.96 H PLT 146 173 135 L 161 GLUCOSE 111 122 119 H 108 NA 137 139 140 138 KPLASMA 5.3 H 4.8 -- 4.7 EXTK -- -- 4.6 -- MG 2.1 1.9 -- 2.2 CO2 -- -- 24 -- BICARB 23 21 L -- 22 BUN 34 H 43 H 43 H 41 H Immunosuppressant: Recent Labs 07/22/25 0831 06/17/25 0832 05/22/25 0843 TACROLIMUS 7.3 7.3 4.3 L Current Immunosuppression: Tacrolimus 2 mg BID, Azathioprine 75 mg daily, Prednisone 5 mg daily Goal Range for Immunosuppression: 4-8 Please advise on recommendations. Thank you, Danis Cagle R.N., C.C.T.C. BASE SPECIALIST documented in this encounter Plan of Treatment Upcoming Encounters Date Type Department Care Team (Late st Contact Info) Description 08/19/2025 8:10 AM DATABASE SPECIALIST Appointment Department of Laboratory Medicine in [address] [phone] Mohinder Turk M.D. [address] [place] [phone] 09/16/2025 8:20 AM DATABASE SPECIALIST Appointment Department of Laboratory Medicine in [address] [address] Mohinder Turk M.D. [address] [place] [phone] 10/21/2025 8:20 AM DATABASE SPECIALIST Appointment Department of Laboratory Medicine in [place], [place] [address] [place] [address] Mohinder Turk M.D. [address] [place] [address] 11/18/2025 8:20 AM CDT Appointment Department of Laboratory Medicine in [place], [place] [address] [place] [address] Mohinder Turk M.D. [address] [place] [address] documented as of this encounter Visit Diagnoses Not on filedocumented in this encounter Additional Health Concerns Infection Onset Date Last Indicated Resolved Time Protective Environment 12/16/2022 12/16/2022 Assessment Noted Time PHQ-9 Depression Total Score: 1 01/24/20 24 7:51 AM CDT documented as of this encounter Care Teams Demand Planning Manager Relationship Specialty Start Date End Date Elsewhere, Pcp PCP - General Family Medicine 05/18/23 Jodie Santiago Bone Density TechnicianSenior Economist Review Committee, Other 05/31/22 [facility] Laboratory Medicine 08/09/22 Dr Shilpi Barry. [facility] Cardiovascular Diseases 01/15/24 documented as of this encounter
--- OUTSIDE RECORDS SUMMARY | 2025-08-08 23:36 | XMS_ITS | Clinical Summary ---
Author Organization [facility] Address [address] [place] [address] Care Team Providers Care Work Counselor Name Role Phone Bryce Hicks MD Primary Care Provider [phone] Allergies Active Allergy Reactions Criticality Noted Date Comments Ciprofloxacin Arthralgia 09/01/2016 Whole body ached Flecainide Shortness Of Breath,Dizziness 06/29/2021 Latex Rash 03/23/2018 C-pap leaves burn josie on face from latex mask Levofloxacin Other - Describe In Comment Field 09/01/2016 Patient doesn't remember reaction to rx Sulfa (Sulfonamide Antibiotics) Dizziness Low 07/03/2018 Sulfamethoxazole-Trimeth oprim Headache 05/09/2018 Medications levothyroxine (SYNTHROID) 112 mcg tablet Take 112 mcg by mouth before breakfast. 1 Active cephalexin (KEFLEX) 500 mg capsule TAKE 4 CAPSULES BY MOUTH 1 HOUR BEFORE APPOINTMENT 1 Active rosuvastatin (Crestor) 5 mg tablet Take 1 Tablet (5 mg) by mouth at bedtime. 0 3 Active magnesium oxide (MAG-OX 400) 400 mg tablet Take 1 Tablet (400 mg) by mouth two times daily. 0 3 Active pantoprazole (PROTONIX) 40 mg delayed-release tablet Take 1 Tablet by mouth at bedtime. 2 Active trimethoprim-sul famethoxazole, 80-400 mg, (Bactrim) tab Take 1 Tablet by mouth once daily in the evening. 6 Tablet 3 Active cholecalciferol, Vitamin D3, 5,000 unit tab tablet Take 125 mcg by mouth once daily. 3 Active tacrolimus (PROGRAF) 1 mg capsule Take 3 mg by mouth once daily in the morning. 3 mg in the morning and 2.5 mg in the evening 3 Active azithromycin (ZITHROMAX) 250 mg tablet Take 250 mg by mouth every Monday, Monday and Monday. take 1 tablet by mouth three times a week. Active azaTHIOprine (IMURAN) 50 mg tablet Take 100 mg by mouth every morning. Active predniSONE (DELTASONE) 5 mg tablet Take 1 Tablet (5 mg) by mouth once daily with a meal. 4 Active semaglutide (RYBELSUS) 7 mg tablet Take 7 mg by mouth once daily before a meal. 4 Active tacrolimus (Prograf) 0.5 mg capsule Take 2.5 mg by mouth once daily in the evening. 3 MG IN THE MORNING AND 2.5MG IN THE EVENING Active iron,carbonyl-vi tamin C (Vitron-C) 65 mg iron- 125 mg Delayed-Release tablet Take 1 Tablet by mouth once daily in the evening. Active furosemide (LASIX) 20 mg tabletIndication s:S/P ablation of atrial fibrillation Take 1 Tablet (20 mg) by mouth once daily in the morning. Or until your weight is back to baseline 3 Tablet 02/29/2024 3:26 PM CDT 4 Active apixaban (Eliquis) 5 mg tabletIndication s:Paroxysmal atrial fibrillation (HC) Take 0.5 Tablets (2.5 mg) by mouth two times daily. If you have AFIB, take an extra 2.5 mg and call us at 90 Tablet 1 4 Active valsartan (DIOVAN) 160 mg tabletIndication s:Hypertension Take 160 mg (1 Tablet) by mouth once daily in the evening 90 Tablet 1 4 Active Active Problems Problem Noted Date Diagnosed Date Paroxysmal atrial fibrillation 05/27/2024 Encounters Date Type Department Care Team Description 07/16/2025 Telephone [facility] [address] [place] [address] Venkata Davalos MD Appointment (Injection) from Last 3 Months Social History Tobacco Use Types Packs/Day Years Used Date Smoking Tobacco: Former Smokeless Tobacco: Never Tobacco Cessation:Counseling Given: Yes Alcohol Use Standard Drinks/Week Comments Not Currently 0 (1 standard drink = 0.6 oz pur e alcohol) Financial Resource Strain Answer Date R ecorded Difficulty of Paying Living Expenses Not on file 09/03/2021 Difficulty of Paying Living Expenses Not on file 09/03/2021 Interpersonal Safety Answer Date Record ed Are you being hit, kicked, p ushed or yelled at (see row info)? No 02/29/2024 Interpersonal Safety Abuse 12 - 18 Not on file 02/29/2024 Interpersonal Safety Ambulatory Vulnerability No t on file 02/29/2024 Sex and Gender Information Value Date Recorded Sex Assigned at Not on file Legal Sex Male 6:08 AM PRESS OFFBEARER Gender Identity Not on file Sexual Orientation Not on file Obstetrics History Last Filed Vital Signs Vital Sign Reading Time Taken Comments Blood Pressure 110/62 11/14/2024 1:41 PM PRESS OFFBEARER Pulse 78 11/14/2024 1:41 PM PRESS OFFBEARER Temperature 36.4 C (97.5 F) 02/29/2024 2:15 PM CDT Respiratory Rate 18 02/29/2024 5:00 PM CDT Oxygen Saturation 99% 11/14/2024 1:41 PM PRESS OFFBEARER Inhaled Oxygen Concentration - - Weight 92.1 kg (203 lb) 11/14/2024 1:41 PM PRESS OFFBEARER Height 177.8 cm (5' 10) 11/14/2024 1:41 PM PRESS OFFBEARER Body Mass Index 29.13 11/14/2024 1:41 PM PRESS OFFBEARER Plan of Treatment Upcoming Encounters Date Type Department Care Team (Late st Contact Info) Description 11/20/2025 9:30 AM CDT Office Visit [facility] [address] [facility] [address] [place], [place] [phone] Samantha Navarrete PA [address] [facility] [address] [place], [place] [phone] Health Maintenance Due Date Last Done Comments Tetanus booster 1958 Depression screening for age 12+ 1959 Hepatitis C screening for age 18-79 1965 Pneumococcal series for age 50+ (1 of 2 - PCV) 1966 Zoster (shingles) series for age 50+ (1 of 2) 1966 Medicare Wellness for age 65+ 2012 RSV vaccine for adults or (1 - 1-dose 75+ series) 2022 Influenza Vaccine (#1) 2025 BMI (ht and wt on same day) for age 18+ 11/14/2025 11/14/2024, 05/28/2024, 01/10/2024, Additional history exists Hepatitis B series for 19+ Aged Out N o longer eligible based on patient's age to complete this topic Insurance MEDICARE PART B HB ONLY MEDICARE ADVANTAGE MR Advance Directives * Full Code (Latest Code Status on File) Date Activated Date Inactivated Comments 02/29/2024 12:32 PM 02/29/2024 8:15 PM Question Answer Comments Code Status Discussion: Other Care Teams Work Counselor Relationship Specialty Start Date End Date Bryce Hicks MD [address] [place] [address] PCP - General Family Practice 06/28/21
--- OUTSIDE RECORDS SUMMARY | 2025-08-08 23:36 | XMS_ITS | Clinical Summary ---
Author Organization [facility] Address [address] [place] [id number] Care Team Providers Care [employer] Driver Name Role Phone [facility] Primary Care Provider Sherri Chowdhury RD Unavailable [phone] Social History Tobacco Use Types Packs/Day Years Used Date Smoking Tobacco: Never Assessed Adolescent Education Answer Date Record ed Getting School Help Needed Not on file 06/18 Sex and Gender Information Value Date Recorded Sex Assigned at Not on file Legal Sex Male 3:12 AM [employer] Gender Identity Not on file Sexual Orientation Not on file Plan of Treatment Health Maintenance Due Date Last Done Comments ADVANCE CARE PLANNING 1945 ANNUAL REVIEW OF HM ORDERS 1945 BMP 1945 DIABETES SCREENING 1945 HEPATITIS C SCREENING 1965 LIPID 1987 FALL RISK ASSESSMENT 2012 PHQ-2 (once per calendar year) 2024 COVID-19 VACCINE ( season) 2025 06/19/2024, 12/29/2023, 06/12/2023, Additional history exists INFLUENZA VACCINE (#1) 2025 , 06/12/2023, 08/12/2022, Additional history exists DTAP/TDAP/TD VACCINE (3 - Td or Tdap) 07/03/2033 07/03/2023, 04/09/2013 COLONOSCOPY Discontinued 01/27/2005 COLORECTAL CANCER SCREENING Discontinued ZOSTER VACCINE Completed 10/01/2020, 05/02/2020 RSV VACCINE Completed 06/28/2023 PNEUMOCOCCAL VACCINE 50+ YEARS Completed 07/03/2023, 02/24/2015, 04/09/2013 CT COLONOGRAPHY Discontinued FIT Discontinued FLEX SIG Discontinued HPV VACCINE (No Doses Required) Completed MENINGITIS VACCINE Aged Out No longer eligible based on patient's age to complete this topic sDNA (Cologuard) Discontinued Procedures Procedure Name Priority Date/Time Associated Diagnosis Comments COLONOSCOPY Routine 01/27/2005 2:10 PM CDT from Last 3 Months or Most Recently Relevant to Health Maintenance Results * COLONOSCOPY (01/27/2005 2:10 PM CDT) COLONOSCOPY [facility] Patient Name: Jacek Velez Gender: M Exam [...] to Health Maintenance Insurance [employer] Care Teams [employer] Relationship Specialty Start Date End Date Clinic, [address] [address] PCP - General 03/06/[address] [place] [address] Registered Dietitian Dietitian, Registered 11/07/24
[2025-08-08 23:40] VITALS: BP 206/99; PULSE 67; RESP 24; TEMP 36.4; O2SAT 99; BMI 29.4
--- NOTE | 2025-08-09 00:05 | CRLHL7_ITS ---
For Patients: As a result of the Century Cures Act, medical imaging exams and procedure reports are released immediately into your electronic medical record. You may view this report before your referring provider. If you have questions, please contact your health care provider. Indication: Right lower quadrant/flank pain Technique: Noncontrast CT through the abdomen and pelvis with multiplanar reformats. Comparison: CT abdomen and pelvis performed 12/07/2012 Findings: Lower chest: Postsurgical changes of the bilateral lungs. Small right greater than left effusions. Right basilar consolidation noted. Hepatobiliary: No significant parenchymal abnormality is appreciated. Spleen: Unremarkable. Pancreas: No acute abnormality appreciated. Adrenal glands: No acute abnormality appreciated. Kidneys: Mild right hydronephrosis. Nonobstructing bilateral renal stones. Bowel: Diverticulosis. No obstruction. No focal perienteric or pericolonic stranding is appreciated. The appendix is visualized and appears unremarkable. Vascular: Calcified atherosclerosis. Lymph nodes: No gross lymphadenopathy. Peritoneum: No free air. No free fluid. : Obstructing 2 millimeter distal right ureteral stone. Soft tissues: No acute abnormality appreciated. Bones: No acute fracture. No lytic or blastic lesion. Right hip replacement. Degenerative changes of the spine and pelvis. Impression: 1. Obstructing 2 millimeter distal right ureteral stone with mild hydronephrosis. 2. Additional bilateral nonobstructing stones present. 3. Bilateral lungs demonstrate postsurgical changes and small effusions. Note is also made of a round appearing right basilar consolidation, not present on 2013 study. This could represent round atelectasis but is indeterminate. Recommend correlation with interval imaging, if available. If none is available or if this is new, follow-up CT in 8-12 weeks would be recommended. Please note that all CT scans at this facility use dose modulation, iterative reconstruction, and/or weight-based dosing when appropriate to reduce radiation dose to as low as reasonably achievable. Dictated by Jaison Kyle MD @ 08/09/2025 1:17:58 AM (Electronically Signed)
--- NOTE | 2025-08-09 00:07 | ED.GENADULT ---
HPI - General Adult General Date Seen: 08/09/25 Chief complaint: Flank Pain Stated complaint: possible kidney stone, right side pain Time Seen by Provider: 08/09/25 00:12 History of Present Illness HPI narrative: Patient is a 79-year-old here with his for evaluation of right lower abdominal pain. He says the pain initially started in the right flank but now is in the right lower quadrant. It is severe. He does have a history of kidney stones but says his last kidney stone was 25 or 30 years ago, he does not remember if this is how it felt. He has had some nausea and vomiting related to the pain. He has not had any urinary symptoms that he is aware of. No fevers or chills or other systemic symptoms. No chest pain or difficulty breathing. Medical history is reviewed, notable for atrial fibrillation, anticoagulated on Eliquis. He is status post 1 transplant, history of inflammatory liver disease, chronic kidney disease, type 2 diabetes, hypertension. He had ultrasound of his aorta earlier this year that showed no evidence of aneurysm. Related Data Home Medications ?Medication ?Instructions ?Recorded ?Confirmed cholecalciferol (vitamin D3) 50 50 mcg PO QDAY 08/15/22 08/08/25 mcg (2,000 unit) capsule acetaminophen 500 mg tablet 1,000 mg PO Q6H PRN 09/14/22 08/08/25 azithromycin 250 mg tablet 250 mg PO 3XW 04/04/23 08/08/25 prednisone 5 mg tablet 5 mg PO QDAY 07/18/23 08/08/25 magnesium oxide 400 mg (241.3 mg 400 mg PO QDAY 03/11/24 08/08/25 magnesium) tablet azathioprine 75 mg tablet mg PO DAILY 10/21/24 07/31/25 tacrolimus 1 mg capsule, 2 mg PO BID 10/21/24 08/08/25 immediate-release sulfamethoxazole 400 1 tab PO QDAY 02/18/25 08/08/25 mg-trimethoprim 80 mg tablet (Bactrim) furosemide 20 mg tablet 20 mg PO DAILY PRN 08/08/25 08/08/25 Previous Rx's ?Medication ?Instructions ?Recorded pantoprazole 40 mg tablet,delayed 40 mg PO QDAY #90 tabs 10/21/24 release semaglutide 7 mg tablet 7 mg PO QDAY #90 tabs 02/10/25 valsartan 80 mg tablet 80 mg PO BID #180 tabs 10/21/24 apixaban 2.5 mg tablet (Eliquis) 2.5 mg PO BID #180 tabs 02/18/25 blood-glucose sensor (FreeStyle #6 ea 02/18/25 Ayaka 3 Plus Sensor device) iron,carbonyl 65 mg-vitamin C 125 1 tab PO BID #180 tabs 02/18/25 mg tablet,delayed release (Vitron-C) rosuvastatin 5 mg tablet 5 mg PO QDAY #90 tabs 02/18/25 levothyroxine 125 mcg tablet 125 mcg PO QDAY #90 tabs 02/24/25 (Synthroid) tamsulosin 0.4 mg capsule (Flomax) 0.4 mg PO DAILY #10 caps 08/09/25 Allergies Allergy/AdvReac Type Severity Reaction Status Date / Time Sulfa (Sulfonamide Allergy Severe unknown Verified 08/08/25 23:45 Antibiotics) ciprofloxacin Allergy Mild Rash Verified 08/08/25 23:45 levofloxacin AdvReac Unknown generalized Verified 08/08/25 23:45 muscle stiffness Review of Systems Status of ROS: Reports: 10 or more systems reviewed and unremarkable except as noted in History and below [facility] Medical History Atrial fibrillation ?I48.91 - Unspecified atrial fibrillation (ICD-10) History of Mohs micrographic surgery for skin cancer ?Z85.828 - Personal history of other malignant neoplasm of skin (ICD-10) ?Z98.890 - Other specified postprocedural states (ICD-10) Diabetes mellitus with insulin therapy ?E11.9 - Type 2 diabetes mellitus without complications (ICD-10) ?Z79.4 - group home (current) use of insulin (ICD-10) Lung nodule ?R91.1 - Solitary pulmonary nodule (ICD-10) Chronic kidney disease ?N18.9 - Chronic kidney disease, unspecified (ICD-10) Temporal arteritis ?M31.6 - Other giant cell arteritis (ICD-10) Anemia ?D64.9 - Anemia, unspecified (ICD-10) Chest wall pain following surgery ?R07.89 - Other chest pain (ICD-10) ?G89.18 - Other acute postprocedural pain (ICD-10) Elevated liver function tests ?R79.89 - Other specified abnormal findings of blood chemistry (ICD-10) Pneumonia ?J18.9 - Pneumonia, unspecified organism (ICD-10) Physical deconditioning ?R53.81 - Other malaise (ICD-10) 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) ?K75.9 - Inflammatory liver disease, unspecified (ICD-10) Fibrosis of lung ?J84.10 - Pulmonary fibrosis, unspecified (ICD-10) Chest pain ?R07.9 - Chest pain, unspecified (ICD-10) Calculus of kidney (04/09/13) ?N20.0 - Calculus of kidney (ICD-10) GERD (gastroesophageal reflux disease) ?K21.9 - Gastro-esophageal reflux disease without esophagitis (ICD-10) Pneumothorax, acute ?J93.83 - Other pneumothorax (ICD-10) Iatrogenic pneumothorax ?J95.811 - Postprocedural pneumothorax (ICD-10) Pulmonary fibrosis ?J84.10 - Pulmonary fibrosis, unspecified (ICD-10) On prednisone therapy ?Z79.52 - group home (current) use of systemic steroids (ICD-10) Acute respiratory failure with hypoxia ?J96.01 - Acute respiratory failure with hypoxia (ICD-10) Gout ?M10.9 - Gout, unspecified (ICD-10) Renal lithiasis ?N20.0 - Calculus of kidney (ICD-10) Knee pain ?M25.569 - Pain in unspecified knee (ICD-10) Hepatitis ?K75.9 - Inflammatory liver disease, unspecified (ICD-10) Surgical History Lung transplant recipient ?Z94.2 - Lung transplant status (ICD-10) History of vasectomy ?Z98.52 - Vasectomy status (ICD-10) History of tonsillectomy ?Z90.89 - Acquired absence of other organs (ICD-10) S/P hip replacement ?Z96.649 - Presence of unspecified artificial hip joint (ICD-10) S/P blepharoplasty ?Z98.890 - Other specified postprocedural states (ICD-10) Family History Father Alcohol abuse Depression Prostate carcinoma Schizophrenia Brother Alcohol abuse Diverticulitis of colon Prostate carcinoma Sister Alcohol abuse Breast cancer Depression Schizophrenia Mother Diabetes Diverticulitis of colon Stroke Social History Narrative: former smoker Quit 1968 (never smoked since lung transplant) Smoking Status: Former smoker What tobacco products do you use: cigarettes Smoking quit date/years: >15 years ago Do you use any of these nicotine containing products: None Second hand tobacco smoke exposure: No How often do you have a drink containing alcohol: never How often do you have six or more drinks on one occasion: Never AUDIT-C Alcohol total score: 0 Non-prescribed substance use: denies use Exam Narrative: Exam Narrative: Vital signs reviewed, hypertensive In general, an alert elderly male, complaining of severe pain. Head: Normocephalic, atraumatic. Eyes: Sclera clear. Pupils equal and reactive. ENT: Mucous membranes moist. Neck: Supple without adenopathy. Heart: Regular rate and rhythm without murmur. Lungs: Clear. No increased work of breathing, crackles or wheezes. Abdomen: Obese, soft, largely nontender to palpation although he does have a little bit of right lower quadrant tenderness. No rebound guarding or rigidity. Extremities: Well perfused, pulses intact. No significant edema. Neurologic: Alert, conversant. Speech fluent, face symmetric. Moves all extremities equally. Skin: Warm, dry well perfused. Affect: Normal. Const: Vital Signs, click to edit/add: Vital Signs - 24 hr 08/08/25 23:40 08/09/25 01:10 Temperature 97.5 F L Pulse Rate [Right Pulse Oximeter] 67 68 Respiratory Rate 24 19 Blood Pressure [Ri ght Forearm] 206/99 H 186/93 H Pulse Oximetry 99 99 Oxygen Delivery Me thod Room Air Room Air Course Course ED Course: Patient presents with initially back now abdominal pain, normal aorta as of earlier this year so I think the likelihood of AAA is low, however dissection remains on the differential, as well as kidney stone, appendicitis, colitis, diverticulitis, perforated viscus, abscess, among others. I think it is most reasonable to get his pain under control, check some basic labs and get a noncontrast CT scan. If this is negative, dissection protocol would be indicated. I reviewed his CT scan, he does have some hydronephrosis on the right and stones in both kidneys although I did not see an obvious ureteral stone. Radiology reads of his CT is showing a 2 mm distal ureteral stone with mild hydronephrosis. He does have a consolidation at the right lung base, he status post lung transplant in 2021 at [facility]. Our last imaging is from 2012 at which time this was not present. Discussed this with the patient and his , this will need to be followed up as an outpatient, with comparison to previous imaging to make sure this is been seen previously and if not he should have dedicated chest imaging. Asked him to follow that up with primary care or his [facility] team. With regard to his kidney stone, he did require 2 doses of Dilaudid but is feeling comfortable now. Urinalysis does not show any sign of infection. Labs are reviewed in their entirety. He does have a mildly elevated white blood cell count of 12, in the setting of chronic prednisone use. His lactate was mildly elevated at 2.3, CO2 of 19, anion gap of 17, BUN of 37 and creatinine of 1.8 which is his baseline. At this time I do not see any evidence clinically of infection. He remained hypertensive although blood pressure improved with pain control repeat of 186/93. At this time I think discharge home is appropriate, he is not a good candidate for nonsteroidals and given his chronic kidney disease. I have asked him to take Tylenol and have provided oxycodone as well as Zofran for symptomatic relief at home. Strain urine, for severe uncontrolled pain, new symptoms such as fevers or chills, uncontrolled vomiting or other worsening, return to the ER at any time. Vital Signs Vital signs: Initial Vital Signs Temperature 97.5 F L 08/08/25 23:40 Temperature Source Oral 08/08/25 23:40 Pulse Rate 67 08/08/25 23:40 Pulse Rhythm Regular 08/08/25 23:40 Respiratory Rate 24 08/08/25 23:40 Blood Pressure 206/99 H 08/08/25 23:40 Blood Pressure Mean 134 H 08/08/25 23:40 Blood Pressure Position Sitting 08/08/25 23:40 Pulse Oximetry 99 08/08/25 23:40 Oxygen Delivery Method Room Air 08/08/25 23:40 Vital Signs Temperature 97.5 F L 08/08/25 23:40 Pulse Rate 67 08/08/25 23:40 Respiratory Rate 24 08/08/25 23:40 Blood Pressure 206/99 H 08/08/25 23:40 Pulse Oximetry 99 08/08/25 23:40 Oxygen Delivery Method Room Air 08/08/25 23:40 Temperature 97.5 F L 08/08/25 23:40 Pulse Rate 68 08/09/25 01:10 Respiratory Rate 19 08/09/25 01:10 Blood Pressure 186/93 H 08/09/25 01:10 Pulse Oximetry 99 08/09/25 01:10 Oxygen Delivery Method Room Air 08/09/25 01:10 Medications Administered Medications: Discontinued Medications Generic Name Dose Route Start Last Admin Trade Name Freq PRN Reason Stop Dose Admin Hydromorphone HCl 0.5 mg 08/09/25 00:05 08/09/25 00:17 Hydromorphone 0.5 Mg/0.5 Ml Inj IVP 08/09/25 00:06 0.5 mg ONCE ONE Administration Hydromorphone HCl 0.5 mg 08/09/25 00:58 08/09/25 01:08 Hydromorphone 0.5 Mg/0.5 Ml Inj IVP 08/09/25 00:59 0.5 mg ONCE ONE Administration Sodium Chloride 500 mls @ 500 mls/hr 08/09/25 00:05 08/09/25 00:18 0.9 % Sodium Chloride 500 Ml IV 08/09/25 01:04 500 mls/hr .Q1H ONE Administration Ondansetron HCl 4 mg 08/09/25 00:05 08/09/25 00:18 Ondansetron 2 Mg/Ml Inj IVP 08/09/25 00:06 4 mg ONCE ONE Administration Medical Decision Making Lab Data Lab results reviewed: Yes I reviewed the patient's lab results Labs: Lab Results 08/09/25 08/09/25 Range/Units 00:25 01:02 WBC 12.55 H (4.50-11.00) K/uL RBC 4.09 L (4.30-5.90) m/uL Hgb 13.1 L (13.5-17.5) gm/dL Hct 39.0 (37.0-53.0) % MCV 95 (80-100) fL MCH 32 (26-34) pg MCHC 34 (32-36) gm/dL RDW Coeff of Hilaria 14.8 (11.5-15.5) % Plt Count 168 (140-440) K/uL Neut % (Auto) 78.7 H (42.0-72.0) % Lymph % (Auto) 9.6 L (20-44) % [place] % (Auto) 8.4 (0.0-11.0) % Eos % (Auto) 1.2 (0.0-7.0) % Baso % (Auto) 0.2 (0.0-3.0) % Neut # (Auto) 9.90 H (1.7-7.0) K/uL Lymph # (Auto) 1.20 (0.90-2.90) K/uL [place] # (Auto) 1.10 H (0.00-0.90) K/UL Eos # (Auto) 0.20 (0.00-0.50) K/uL Baso # (Auto) 0.00 (0.00-0.30) K/uL Abs Immat Gran (auto) 0.20 (0.00-0.30) K/uL Imm/Tot Granulo (auto) 1.9 % Sodium 139 (135-149) mmol/L Potassium 4.3 (3.6-5.1) mmol/L Chloride 103 (96-114) mmol/L Carbon Dioxide 19 L (20-32) mmol/L Anion Gap 17 H (7-15) mEq/L BUN 37 H (7-30) mg/dL Creatinine 1.8 H (0.5-1.5) mg/dL Estimated Creat Clear 35.49 Estimated GFR 38 ml/min Glucose 162 H (60-115) mg/dL Lactate 2.3 H (0.5-1.9) mmol/L Calcium 9.8 (8.4-10.6) mg/dL C-Reactive Protein < 0.5 L (0.5-1.0) mg/dL Urine Color Yellow (Yellow) Urine Appearance Turbid A (Clear) Urine pH 5.5 (5.0-8.5) Ur Specific [place] 1.015 (1.000-1.030) Urine Protein 1+ A (Negative) Urine Glucose (UA) Negative (Negative) Urine Ketones Negative (Negative) Urine Blood 3+ A (Negative) Urine Nitrite Negative (Negative) Urine Bilirubin Negative (Negative) Urine Urobilinogen 0.2 (0.2-1.0) Ur Leukocyte Esterase Negative (Negative) Urine RBC 10-25 A (0-2) Urine WBC 2-5 (0-5) Ur Squamous Epith Cells None (None-Few) Urine Bacteria None (None) Imaging Data CT scan - abdomen: Attestation: I have reviewed the pertinent imaging results. Radiologist's impression: Patient: HAYDER RIOJAS Facility: [facility] Site . Site : 1945 Study: CT-Abdomen/Pelvis W/O-08/09/2025 12:37:06 AM Ordering Physician: Pat Barrett Final Report: Indication: Right lower quadrant/flank pain Technique: Noncontrast CT through the abdomen and pelvis with multiplanar reformats. Comparison: CT abdomen and pelvis performed 12/07/2012 Findings: Lower chest: Postsurgical changes of the bilateral lungs. Small right greater than left effusions. Right basilar consolidation noted. Hepatobiliary: No significant parenchymal abnormality is appreciated. Spleen: Unremarkable. Pancreas: No acute abnormality appreciated. Adrenal glands: No acute abnormality appreciated. Kidneys: Mild right hydronephrosis. Nonobstructing bilateral renal stones. Bowel: Diverticulosis. No obstruction. No focal perienteric or pericolonic stranding is appreciated. The appendix is visualized and appears unremarkable. Vascular: Calcified atherosclerosis. Lymph nodes: No gross lymphadenopathy. Peritoneum: No free air. No free fluid. : Obstructing 2 millimeter distal right ureteral stone. Soft tissues: No acute abnormality appreciated. Bones: No acute fracture. No lytic or blastic lesion. Right hip replacement. Degenerative changes of the spine and pelvis. Impression: 1. Obstructing 2 millimeter distal right ureteral stone with mild hydronephrosis. 2. Additional bilateral nonobstructing stones present. 3. Bilateral lungs demonstrate postsurgical changes and small effusions. Note is also made of a round appearing right basilar consolidation, not present on 2013 study. This could represent round atelectasis but is indeterminate. Recommend correlation with interval imaging, if available. If none is available or if this is new, follow-up CT in 8-12 weeks would be recommended. Please note that all CT scans at this facility use dose modulation, iterative reconstruction, and/or weight-based dosing when appropriate to reduce radiation dose to as low as reasonably achievable. Dictated by Jaison Kyle MD @ 08/09/2025 1:17:58 AM Discharge Plan Discharge Clinical Impression: Calculus of distal right ureter Patient Disposition: Home, Self-Care Condition: Improved Instructions: Ureteral Stones (ED) Additional Instructions: You have a small stone in your ureter. This is 2 mm and should pass without intervention. If you do not passed the stone in the next 7-10 days, you will need follow-up with Urology. You do have other stones in your kidneys which may cause symptoms down the road if they move into the ureter. You should take Tylenol 1000 mg 3 times daily, and then take oxycodone as needed for more severe pain. Strain your urine, push fluids, Flomax as prescribed, this will need to be filled at the pharmacy tomorrow. As discussed, you have some findings in the right lung base which need to be compared to more recent imaging. Please follow up with your primary doctor or your [facility] team. Return to the ER if you have severe uncontrolled pain, new symptoms such as fever chills, uncontrolled vomiting despite treatment or other worsening. Prescriptions: New tamsulosin [Flomax] 0.4 mg capsule 0.4 mg PO DAILY Qty: 10 2RF No Action cholecalciferol (vitamin D3) 50 mcg (2,000 unit) capsule 50 mcg PO QDAY azithromycin 250 mg tablet 250 mg PO 3XW Patient Comments: MWF azathioprine 75 mg tablet PO DAILY tacrolimus 1 mg capsule 2 mg PO BID Patient Comments: Take 3 capsules (3 mg total) by mouth every morning AND 2 capsules (2 mg total) every evening.* pantoprazole 40 mg tablet,delayed release (DR/EC) 40 mg PO QDAY Qty: 90 3RF semaglutide 7 mg tablet 7 mg PO QDAY Qty: 90 3RF valsartan 80 mg tablet 80 mg PO BID Qty: 180 3RF sulfamethoxazole-trimethoprim [Bactrim] 400-80 mg tablet 1 tab PO QDAY Vitron-C 65 mg iron- 125 mg tablet,delayed release (DR/EC) 1 tab PO BID Qty: 180 3RF Eliquis 2.5 mg tablet 2.5 mg PO BID Qty: 180 3RF (DME) [employer] Ayaka 3 Plus Sensor Device See Rx Instructions .Route Qty: 6 12RF Rx Instructions: As directed rosuvastatin 5 mg tablet 5 mg PO QDAY Qty: 90 3RF furosemide 20 mg tablet 20 mg PO DAILY PRN acetaminophen 500 mg tablet 1,000 mg PO Q6H PRN Patient Comments: for pain 1-11/18, headache, fever prednisone 5 mg tablet 5 mg PO QDAY magnesium oxide 400 mg (241.3 mg magnesium) tablet 400 mg PO QDAY levothyroxine [Synthroid] 125 mcg tablet 125 mcg PO QDAY Qty: 90 0RF Follow Up/Referrals: Bryce Hicks MD [Primary Care Provider, Family Practice] Stand Alone Forms: [facility] Info Instructions
[2025-08-09] MEDS: 0.9 % SODIUM CHLORIDE 500 ML 500 ML IV (00:18)
[2025-08-09] MEDS: ONDANSETRON 2 MG/ML inj 4 MG IVP (00:18)
[2025-08-09 00:37] LABS: Hematocrit* 39.0 % (37.0-53.0); Hemoglobin* 13.1 gm/dL (13.5-17.5); Immature Granulocytes Pct Auto 1.9 %; Lactate Sepsis w/Reflex* 2.3 mmol/L (0.5-1.9); Lymphocytes Absolute Auto 1.20 K/uL (0.90-2.90); Mean Corpuscular HGB Conc 34 gm/dL (32-36); Mean Corpuscular Hemoglobin 32 pg (26-34); Mean Corpuscular Volume 95 fL (80-100); RDW Coefficient of Variation % 14.8 % (11.5-15.5); Red Blood Count* 4.09 m/uL (4.30-5.90); White Blood Count* 12.55 K/uL (4.50-11.00)
[2025-08-09 00:39] LABS: Immature Granulocytes Abs Auto 0.20 K/uL (0.00-0.30); Slide Review Reflex No
--- OUTSIDE RECORDS SUMMARY | 2025-08-09 00:47 | XMS_ITS | Encounter Summary ---
Author Organization [facility] Address [address] [place] [address] Care Team Providers Care Shredding Machine Knife Changer Name Role Phone Elsewhere, Pcp Primary Care Provider Unavailabl e Reason for Visit * Reason Comments Med Refill Encounter Details Date Type Department Care Team (Late st Contact Info) Description 07/10/2025 [facility] in [place], [place] [address] [place] [address] Mohinder Turk M.D. [address] [place] [phone] Med Refill Social History Tobacco Use Types Packs/Day Years Used Date Smoking Tobacco: Former Cigarettes 7.9 0 10/06/1962 - 08/22/1970 Smokeless Tobacco: Never Comments:I have a lung trans plant so i don t know Alcohol Use Standard Drinks/Week Comments Not Currently 0 (1 standard drink = 0.6 oz pur e alcohol) [facility] Utilities Answer Date Recorded In the [...] living situation today? I have a [facility] place to live 12/26/2024 Education Answer Date Recorded What is the highest level of school you have completed or the highest degree you have received? 12th grade 03/18/2022 Sex and Gender Information Value Date Recorded Sex Assigned at Male 02/28/2022 1:12 PM CDT Legal Sex Male 4:43 PM PRODUCTION CONSULTANT Gender Identity Male 05/03/2018 12:46 PM CDT Sexual Orientation Straight 05/03/2018 12 :46 PM CDT documented as of this encounter Plan of Treatment Upcoming Encounters Date Type Department Care Team (Late st Contact Info) Description 08/19/2025 8:10 AM PRODUCTION CONSULTANT Appointment Department of Laboratory Medicine in [address] [address] Mohinder Turk M.D. [address] [place] [address] 09/16/2025 8:20 AM PRODUCTION CONSULTANT Appointment Department of Laboratory Medicine in [address] [address] Mohinder Turk M.D. [address] [place] [phone] 10/21/2025 8:20 AM PRODUCTION CONSULTANT Appointment Department of Laboratory Medicine in [address] [address] Mohinder Turk M.D. [address] [place] [phone] 11/18/2025 8:20 AM CDT Appointment Department of Laboratory Medicine in [address] [address] Mohinder Turk M.D. [address] [place] [phone] documented as of this encounter Visit Diagnoses Diagnosis Transplant Lung (HCC) documented in this encounter Additional Health Concerns Infection Onset Date Last Indicated Resolved Time Protective Environment 12/16/2022 12/16/2022 Assessment Noted Time PHQ-9 Depression Total Score: 1 01/24/20 24 7:51 AM CDT documented as of this encounter Care Teams Shredding Machine Knife Changer Relationship Specialty Start Date End Date Elsewhere, Pcp PCP - General Family Medicine 05/18/23 Jodie Santiago Veterans Services SpecialistSpreading Machine Operator Review Committee, Other 05/31/22 [facility] Laboratory Medicine 08/09/22 Dr Shilpi Barry. [place] [facility] Cardiovascular Diseases 01/15/24 documented as of this encounter
--- OUTSIDE RECORDS SUMMARY | 2025-08-09 00:47 | XMS_ITS | Clinical Summary ---
Author Organization [place] Address [address] [place] [address] Care Team Providers Care Civil Engineering Director Name Role Phone [facility] Primary Care Provider Sherri Chowdhury RD Unavailable [phone] Social History Tobacco Use Types Packs/Day Years Used Date Smoking Tobacco: Never Assessed Adolescent Education Answer Date Record ed Getting School Help Needed Not on file 06/18 Sex and Gender Information Value Date Recorded Sex Assigned at Not on file Legal Sex Male 3:12 AM MANAGER UNIX Gender Identity Not on file Sexual Orientation [...] * COLONOSCOPY (01/27/2005 2:10 PM CDT) COLONOSCOPY [facility] Patient Name: Jacek Velez Gender: M Exam [...] to Health Maintenance Insurance [employer] Care Teams Civil Engineering Director Relationship Specialty Start Date End Date Clinic, [address] [address] PCP - General 03/06/[address] [place] [address] Registered Dietitian Dietitian, Registered 11/07/24
--- OUTSIDE RECORDS SUMMARY | 2025-08-09 00:47 | XMS_ITS | Encounter Summary ---
Author Organization [facility] Address [address] [place] [address] Care Team Providers Care Preschool Teacher Name Role Phone Elsewhere, Pcp Primary Care Provider Unavailabl e Reason for Visit * Reason Onset Date Comments Results 08/06/2025 Encounter Details Date Type Department Care Team (Latest Contact Info) Description 08/06/2025 Clinical Communication Cosmo Toscano [facility] Clinical Regeneration in [place], [place] [address] [place] [address] Danis Cagle, R.N., C.C.T.C. Results Social History Tobacco Use Types Packs/Day Years Used Date Smoking Tobacco: Former Cigarettes 7.9 0 10/06/1962 - 08/22/1970 Smokeless Tobacco: Never Comments:I have a lung trans plant so i don t know Alcohol Use Standard Drinks/Week Comments Not Currently 0 (1 standard drink = 0.6 oz pur e alcohol) [facility] Utilities Answer Date Recorded In the [...] your living situation today? I have a [facility] place to live 12/26/2024 Education Answer Date Recorded What is the highest level of school you have completed or the highest degree you have received? 12th grade 03/18/2022 Sex and Gender Information Value Date Recorded Sex Assigned at Male 02/28/2022 1:12 PM CDT Legal Sex Male 4:43 PM MARINE REPORTER Gender Identity Male 05/03/2018 12:46 PM CDT [...] recommendations. Thank you, Danis Cagle R.N., C.C.T.C. NE REPORTER documented in this encounter Plan of Treatment Upcoming Encounters Date Type Department Care Team (Late st Contact Info) Description 08/19/2025 8:10 AM MARINE REPORTER Appointment Department of Laboratory Medicine in [address] [address] Mohinder Turk M.D. [address] [place] [phone] 09/16/2025 8:20 AM MARINE REPORTER Appointment Department of Laboratory Medicine in [address] [phone] Mohinder Turk M.D. [address] [place] [phone] 10/21/2025 8:20 AM MARINE REPORTER Appointment Department of Laboratory Medicine in [address] [phone] Mohinder Turk M.D. [address] [place] [address] 11/18/2025 8:20 AM CDT Appointment Department of Laboratory Medicine in [place] [address] [place] [address] Mohidner Turk M.D. [address] [place] [address] documented as of this encounter Visit Diagnoses Not on filedocumented in this encounter Additional Health Concerns Infection Onset Date Last Indicated Resolved Time Protective Environment 12/16/2022 12/16/2022 Assessment Noted Time PHQ-9 Depression Total Score: 1 01/24/20 24 7:51 AM CDT documented as of this encounter Care Teams Preschool Teacher Relationship Specialty Start Date End Date Elsewhere, Pcp PCP - General Family Medicine 05/18/23 Jodie Santiago Pad AssemblerMechanical Service Specialist Review Committee, Other 05/31/22 [facility] Laboratory Medicine 08/09/22 Dr Shilpi Barry. [facility] Cardiovascular Diseases 01/15/24 documented as of this encounter
--- OUTSIDE RECORDS SUMMARY | 2025-08-09 00:47 | XMS_ITS | Encounter Summary ---
Author Organization [facility] Address [address] [place] [address] Care Team Providers Care Gambreler Name Role Phone Elsewhere, Pcp Primary Care Provider Unavailabl e Encounter Details Date Type Department Care Team (Late st Contact Info) Description 11/15/2024 Orders Only Division of Endocrinology in [place], [place] [address] [place] [address] [facility], Provider, Type 2 diabetes mellitus Social [...] living situation today? [facility] 05/16/2023 Education Answer Date Recorded What is the highest level of school you have completed or the highest degree you have received? 12th grade 03/18/2022 Sex and Gender Information Value Date Recorded Sex Assigned at Male 02/28/2022 1:12 PM CDT Legal Sex Male 4:43 PM CORPORATE RECRUITER Gender Identity Male 05/03/2018 12:46 PM CDT Sexual Orientation Straight 05/03/2018 12 :46 PM CDT documented as of this encounter Plan of Treatment Upcoming Encounters Date Type Department Care Team (Late st Contact Info) Description 08/19/2025 8:10 AM CORPORATE RECRUITER Appointment Department of Laboratory Medicine in [address] [phone] Mohinder Turk M.D. 200 [place] [address] 09/16/2025 8:20 AM CORPORATE RECRUITER Appointment Department of Laboratory Medicine in [address] [address] Mohinder Turk M.D. 200 [place] [address] 10/21/2025 8:20 AM CORPORATE RECRUITER Appointment Department of Laboratory Medicine in [address] [address] Mohinder Turk M.D. [address] [place] [address] 11/18/2025 8:20 AM CDT Appointment Department of Laboratory Medicine in [place], [place] [address] [facility] [place] [address] Mohinder Turk M.D. [address] [place] [address] documented as of this encounter Visit Diagnoses Diagnosis Type 2 diabetes mellitus documented in this encounter Additional Health Concerns Infection Onset Date Last Indicated Resolved Time Protective Environment 12/16/2022 12/16/2022 Assessment Noted Time PHQ-9 Depression Total Score: 1 01/24/20 24 7:51 AM CDT documented as of this encounter Care Teams Gambreler Relationship Specialty Start Date End Date Elsewhere, Pcp PCP - General Family Medicine 05/18/23 Jodie Santiago Furnace Process Plant OperatorTranscription Review Committee, Other 05/31/22 [facility] Laboratory Medicine 08/09/22 Dr Shilpi Barry. [facility] Cardiovascular Diseases 01/15/24 documented as of this encounter
--- OUTSIDE RECORDS SUMMARY | 2025-08-09 00:47 | XMS_ITS ---
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 Lung Coordinator [phone] N/A [email or web address] Bolaños M.D., M.B.A. Transplant Surgeon [phone] [email or web address] Transplant Referral Referring Provider N/A N/A N/A Mohinder Turk M.D. Transplant Ironer Machine [phone] [email or web address] Events Post-Transplant Pre-Transplant Admitted: 05/09/2022 Referred: 12/03/2021 Transplanted: 05/10/2022 Evaluation began: 2 Discharged: 05/24/2022 Committee: 03/15/2022 Center waitlisted: 2
--- OUTSIDE RECORDS SUMMARY | 2025-08-09 00:47 | XMS_ITS | Encounter Summary ---
Author Organization [facility] Address [address] [place] [address] Care Team Providers Care Conservation Engineer Name Role Phone Elsewhere, Pcp Primary Care Provider Unavailabl e Encounter Details Date Type Department Care Team (Late st Contact Info) Description 07/23/2025 Orders Only [facility] in [place], [place] [address] [place] [address] Danis Cagle, RHienN., C.C.T.C. Transplant Lung (HCC) [...] your living situation today? I have a [facility] place to live 12/26/2024 Education Answer Date Recorded What is the highest level of school you have completed or the highest degree you have received? 12th grade 03/18/2022 Sex and Gender Information Value Date Recorded Sex Assigned at Male 02/28/2022 1:12 PM CDT Legal Sex Male 4:43 PM MEDICAL LOGISTICS SPECIALIST Gender Identity Male 05/03/2018 12:46 PM CDT Sexual Orientation Straight 05/03/2018 12 :46 PM CDT documented as of this encounter Plan of Treatment Upcoming Encounters Date Type Department Care Team (Late st Contact Info) Description 08/19/2025 8:10 AM MEDICAL LOGISTICS SPECIALIST Appointment Department of Laboratory Medicine in [place] [address] [place] [address] Mohinder Turk M.D. [address] [place] [address] 09/16/2025 8:20 AM MEDICAL LOGISTICS SPECIALIST Appointment Department of Laboratory Medicine in [address] [address] Mohinder Turk M.D. [address] [place] [phone] 10/21/2025 8:20 AM MEDICAL LOGISTICS SPECIALIST Appointment Department of Laboratory Medicine in [address] [address] Mohinder Turk M.D. [address] [place] [phone] 11/18/2025 8:20 AM CDT Appointment Department of Laboratory Medicine in [address] [address] Mohinder Turk M.D. [address] [place] [phone] documented as of this encounter Results * Potassium (08/04/2025 10:00 AM MEDICAL LOGISTICS SPECIALIST) Potassium, P 4.2 3.6 - 5.2 mmol/L 08/04/2025 1:35 PM MEDICAL LOGISTICS SPECIALIST OWAT Blood (Blood, Venous) 08/04/2025 10:00 AM MEDICAL LOGISTICS SPECIALIST 08/04/2025 1:02 PM MEDICAL LOGISTICS SPECIALIST us Frank Hastings M.D. LAB BLOOD ADD-ON Final Result [facility] [address] [place] [address], [place] [address] [facility] in [place] [address] [place] [address] documented in this encounter Visit Diagnoses Diagnosis Transplant Lung (HCC)- Primary Hyperkalemia documented in this encounter Additional Health Concerns Infection Onset Date Last Indicated Resolved Time Protective Environment 12/16/2022 12/16/2022 Assessment Noted Time PHQ-9 Depression Total Score: 1 01/24/20 24 7:51 AM CDT documented as of this encounter Care Teams Conservation Engineer Relationship Specialty Start Date End Date Elsewhere, Pcp PCP - General Family Medicine 05/18/23 Jodie Santiago Veterinarian EpidemiologistChecker Dump Grounds Review Committee, Other 05/31/22 [facility] Laboratory Medicine 08/09/22 Dr Shilpi Barry. [facility] Cardiovascular Diseases 01/15/24 documented as of this encounter
--- OUTSIDE RECORDS SUMMARY | 2025-08-09 00:47 | XMS_ITS | Encounter Summary ---
Author Organization [facility] Address [address] [place] [address] Care Team Providers Care Nickel Operator Name Role Phone Elsewhere, Pcp Primary Care Provider Unavailabl e Reason for Visit * Reason Onset Date Comments Appts Requests 07/30/2025 Encounter Details Date Type Department Care Team (Latest Contact Info) Description 07/30/2025 Clinical Communication Cosmo Toscano [facility] for Transplantation and Clinical Regeneration in [place], [place] [address] [place] [address] Danis Cagle, R.N., C.C.T.C. Appts Requests Social History Tobacco Use Types Packs/Day Years Used Date Smoking Tobacco: Former Cigarettes 7.9 0 10/06/1962 - 08/22/1970 Smokeless Tobacco: Never Comments:I have a lung trans plant so i don t know Alcohol Use Standard Drinks/Week Comments Not Currently 0 (1 standard drink = 0.6 oz pur e alcohol) [facility] Utilities Answer Date Recorded In the [...] your living situation today? I have a [facility] place to live 12/26/2024 Education Answer Date Recorded What is the highest level of school you have completed or the highest degree you have received? 12th grade 03/18/2022 Sex and Gender Information Value Date Recorded Sex Assigned at Male 02/28/2022 1:12 PM CDT Legal Sex Male 4:43 PM RADIO ANTENNA INSTALLER Gender Identity Male 05/03/2018 12:46 PM CDT Sexual Orientation Straight 05/03/2018 12 :46 PM CDT documented as of this encounter Plan of Treatment Upcoming Encounters Date Type Department Care Team (Late st Contact Info) Description 08/19/2025 8:10 AM RADIO ANTENNA INSTALLER Appointment Department of Laboratory Medicine in [address] [address] Mohinder Turk M.D. [address] [place] [address] 09/16/2025 8:20 AM RADIO ANTENNA INSTALLER Appointment Department of Laboratory Medicine in [address] [address] Mohinder Turk M.D. [address] [place] [phone] 10/21/2025 8:20 AM RADIO ANTENNA INSTALLER Appointment Department of Laboratory Medicine in [address] [address] Mohinder Turk M.D. [address] [place] [phone] 11/18/2025 8:20 AM CDT Appointment Department of Laboratory Medicine in [address] [address] Mohinder Turk M.D. [address] [place] [phone] documented as of this encounter Visit Diagnoses Not on filedocumented in this encounter Additional Health Concerns Infection Onset Date Last Indicated Resolved Time Protective Environment 12/16/2022 12/16/2022 Assessment Noted Time PHQ-9 Depression Total Score: 1 01/24/20 24 7:51 AM CDT documented as of this encounter Care Teams Nickel Operator Relationship Specialty Start Date End Date Elsewhere, Pcp PCP - General Family Medicine 05/18/23 Jodie Santiago Cnc Operator ProgrammerRail Transit Operator Review Committee, Other 05/31/22 [facility] Laboratory Medicine 08/09/22 Dr Shilpi Barry. [facility] Cardiovascular Diseases 01/15/24 documented as of this encounter
--- OUTSIDE RECORDS SUMMARY | 2025-08-09 00:47 | XMS_ITS | Encounter Summary ---
Author Organization [facility] Address [address] [place] [address] Care Team Providers Care News Analyst Name Role Phone Elsewhere, Pcp Primary Care Provider Unavailabl e Reason for Visit * Reason Onset Date Comments Results 07/23/2025 Encounter Details Date Type Department Care Team (Latest Contact Info) Description 07/23/2025 Clinical Communication Cosmo Toscano [facility] for Transplantation and Clinical Regeneration in [place], [place] [address] [place] [address] Danis Cagle, R.N., C.C.T.C. Results Social History Tobacco Use Types Packs/Day Years Used Date Smoking Tobacco: Former Cigarettes 7.9 0 10/06/1962 - 08/22/1970 Smokeless Tobacco: Never Comments:I have a lung trans plant so i don t know Alcohol Use Standard Drinks/Week Comments Not Currently 0 (1 standard drink = 0.6 oz pur e alcohol) [facility] Utilities Answer Date Recorded In [...] your living situation today? I have a [facility] place to live 12/26/2024 Education Answer Date Recorded What is the highest level of school you have completed or the highest degree you have received? 12th grade 03/18/2022 Sex and Gender Information Value Date Recorded Sex Assigned at Male 02/28/2022 1:12 PM CDT Legal Sex Male 4:43 PM OFFICE RUNNER Gender Identity Male 05/03/2018 12:46 PM CDT [...] recommendations. Thank you, Danis Cagle R.N., C.C.T.C. CE RUNNER documented in this encounter Plan of Treatment Upcoming Encounters Date Type Department Care Team (Late st Contact Info) Description 08/19/2025 8:10 AM OFFICE RUNNER Appointment Department of Laboratory Medicine in [address] [address] Mohinder Turk M.D. [address] [place] [phone] 09/16/2025 8:20 AM OFFICE RUNNER Appointment Department of Laboratory Medicine in [address] [address] Mohinder Turk M.D. [address] [place] [phone] 10/21/2025 8:20 AM OFFICE RUNNER Appointment Department of Laboratory Medicine in [place], [place] [address] [place] [address] Mohinder Turk M.D. [address] [place] [address] 11/18/2025 8:20 AM CDT Appointment Department of Laboratory Medicine in [place], [place] [address] [place] [address] Mohinder Turk M.D. [address] [place] [address] documented as of this encounter Visit Diagnoses Not on filedocumented in this encounter Additional Health Concerns Infection Onset Date Last Indicated Resolved Time Protective Environment 12/16/2022 12/16/2022 Assessment Noted Time PHQ-9 Depression Total Score: 1 01/24/20 24 7:51 AM CDT documented as of this encounter Care Teams News Analyst Relationship Specialty Start Date End Date Elsewhere, Pcp PCP - General Family Medicine 05/18/23 Jodie Santiago Facepiece Line SupervisorFreelance Data Entry Review Committee, Other 05/31/22 [facility] Laboratory Medicine 08/09/22 Dr Shilpi Barry. [place] [facility] Cardiovascular Diseases 01/15/24 documented as of this encounter
--- OUTSIDE RECORDS SUMMARY | 2025-08-09 00:47 | XMS_ITS | Clinical Summary ---
Author Organization [facility] Address [address] [place] [address] Care Team Providers Care Pearler Name Role Phone Bryce Hicks MD Primary Care Provider [phone] Source Comments You are receiving this document as you are listed as the primary care provider,follow-up provider, or the patient has been referred to you for consultation.This is in compliance with the Medicare and[facility] Cent[facility]aid EHR Incentive Program,which states Providers who transition their patient to another setting of careor provider of care or refers their patient to another provider of care shouldprovide summary care record for each transition of care or referral. MySQUAR Allergies Active Allergy Reactions Criticality Noted Date [...] 1,000 mg by mouth. Active nystatin (MYCOSTATIN) 590059 UNIT/GM cream APPLY TOPICALLY TO THE AFFECTED [...] age to complete this topic [place] [address] MEDICARE ADVANTAGE Care Teams Pearler Relationship Specialty Start Date End Date Bryce Hicks MD [address] [facility] [place], [place] [phone] PCP - General Family Practice 07/23/20
--- OUTSIDE RECORDS SUMMARY | 2025-08-09 00:47 | XMS_ITS | Encounter Summary ---
Author Organization [facility] Address [address] [place] [address] Care Team Providers Care Tail Dogger Name Role Phone Elsewhere, Pcp Primary Care Provider Unavailabl e Reason for Referral * Outpatient (Routine) - Closed Specialty Diagnoses / Procedures Referred By Contac t Referred To Contact Cardiovascular Disease Diagnoses Atrial Fibrillation Unspecified (HCC) Hypertension NOS Bryce Hicks M.D. Phone: tel: fax: [facility] Referral ID Status Reason Start Date Expiration Date Visits Re quested Visits Authorized [id number] Closed 02/15/2018 02/15/2019 1 1 Encounter Details Date Type Department Care Team (Latest Contact Info) Description 02/15/2018 [facility] [address] [place] [phone] Bryce Hicks M.D. [address] [place] [phone] Fibrillation Atrial (HCC) (Primary Dx); Hypertension NOS Social History Tobacco Use Types Packs/Day Years Used Date Smoking Tobacco: Former Sex and Gender Information Value Date Recorded Sex Assigned at Male 02/28/2022 1:12 PM CDT Legal Sex Male 4:43 PM 7TH GRADE SOCIAL STUDIES TEACHER Gender Identity Male 05/03/2018 12:46 PM CDT Sexual Orientation Straight 05/03/2018 12 :46 PM CDT documented as of this encounter Plan of Treatment Upcoming Encounters Date Type Department Care Team (Late st Contact Info) Description 08/19/2025 8:10 AM 7TH GRADE SOCIAL STUDIES TEACHER Appointment Department of Laboratory Medicine in [address] [address] Mohinder Turk M.D. [address] [place] [phone] 09/16/2025 8:20 AM 7TH GRADE SOCIAL STUDIES TEACHER Appointment Department of Laboratory Medicine in [address] [address] Mohinder Turk M.D. [address] [place] [phone] 10/21/2025 8:20 AM 7TH GRADE SOCIAL STUDIES TEACHER Appointment Department of Laboratory Medicine in [address] [address] Mohinder Turk M.D. [address] [place] [phone] 11/18/2025 8:20 AM CDT Appointment Department of Laboratory Medicine in [address] [address] Mohinder Turk M.D. [address] [place] [phone] Scheduled Referrals Name Type Priority Associated Diagnoses [...] documented as of this encounter Care Teams Tail Dogger Relationship Specialty Start Date End Date Elsewhere, Pcp PCP - General Family Medicine 05/18/23 Jodie Santiago Door To Door Sales RepresentativeScaffold Erector Review Committee, Other 05/31/22 [facility] Laboratory Medicine 08/09/22 Dr Shilpi Barry. [facility] Cardiovascular Diseases 01/15/24 documented as of this encounter
--- OUTSIDE RECORDS SUMMARY | 2025-08-09 00:47 | XMS_ITS | Clinical Summary ---
Author Organization [facility] Address [address] [place] [address] Care Team Providers Care Coding Specialist Name Role Phone Bryce Hicks MD Primary Care Provider [phone] Allergies Active Allergy Reactions Criticality Noted Date [...] Type Department Care Team Description 07/16/2025 Telephone [facility] [address] [place] [address] Venkata Davalos MD Appointment (Injection) [...] on file Legal Sex Male 6:08 AM LIBERAL ARTS TEACHER Gender Identity Not on file Sexual Orientation Not on file Obstetrics History Last Filed Vital Signs Vital Sign Reading Time Taken Comments Blood Pressure 110/62 11/14/2024 1:41 PM LIBERAL ARTS TEACHER Pulse 78 11/14/2024 1:41 PM LIBERAL ARTS TEACHER Temperature 36.4 C (97.5 F) 02/29/2024 2:15 PM CDT Respiratory Rate 18 02/29/2024 5:00 PM CDT Oxygen Saturation 99% 11/14/2024 1:41 PM LIBERAL ARTS TEACHER Inhaled Oxygen Concentration - - Weight 92.1 kg (203 lb) 11/14/2024 1:41 PM LIBERAL ARTS TEACHER Height 177.8 cm (5' 10) 11/14/2024 1:41 PM LIBERAL ARTS TEACHER Body Mass Index 29.13 11/14/2024 1:41 PM LIBERAL ARTS TEACHER Plan of Treatment Upcoming Encounters Date Type Department Care Team (Late st Contact Info) Description 11/20/2025 9:30 AM CDT Office Visit [facility] [address] [facility] [address] [place], [place] [address] Samantha Navarrete PA [address] [facility] [address] [place], [place] [phone] Health Maintenance Due Date Last Done Comments [...] Comments Code Status Discussion: Other Care Teams Coding Specialist Relationship Specialty Start Date End Date Bryce Hicks MD [address] [place] [address] PCP - General Family Practice 06/28/21
--- OUTSIDE RECORDS SUMMARY | 2025-08-09 00:48 | XMS_ITS | Clinical Summary ---
Author Organization [facility] Address [address] [place] [address] Care Team Providers Care Hairpiece Stylist Name Role Phone Elsewhere, Pcp Primary Care Provider Unavailabl e Source Comments Patient records contain information from all sites at [facility]. For routine questions regarding patient records, call [phone] during business hours, M-F 8:00 AM - 5:00 PM Central Time. Record requests for emergency care only can be directed to [phone] at any time.[facility] Allergies Active Allergy Reactions Criticality Noted Date [...] oral Daily PRN, Reported on 04/10/2025 vitamins A,C,K-emjj-teojj r (PreserVision AREDS) 7,160 Units-113 mg-100 Units [...] (02/02/2022): Added automatically from request for surgery [id number] Encounters Date Type Department Care Team Description 08/06/2025 Clinical Communication Cosmo Toscano [facility] in [place], [place] [address] [place] [address] Danis Cagle R.N., C.C.T.C. Results 08/04/2025 9:50 AM MICROFILM TECHNICIAN - 08/04/2025 11:59 PM MICROFILM TECHNICIAN Hospital Encounter Department of Laboratory Medicine in [address] [phone] Frank Hastings M.D. Transplant Lung (HCC); Hyperkalemia Discharge Disposition: Home or Self Care 07/30/2025 Clinical Communication [facility] Transplantation and Clinical Regeneration in [place], [place] [address] [place] [address] Danis Cagle R.N., C.C.T.C. Appts Requests 07/23/2025 Orders Only [facility] Transplantation and Clinical Regeneration in [place], [place] [address] [place] [address] Danis Cagle R.N., C.C.T.C. Transplant Lung (HCC) (Primary Dx); Hyperkalemia 07/23/2025 Clinical Communication [facility] Transplantation and Clinical Regeneration in [place], [place] [address] [place] [address] Danis Cagle R.N., C.C.T.C. Results 07/22/2025 8:19 AM MICROFILM TECHNICIAN - 07/22/2025 11:59 PM MICROFILM TECHNICIAN Hospital Encounter Department of Laboratory Medicine in [place], [place] [address] [place] [phone] Mohinder Turk M.D. Transplant Lung (HCC) Discharge Disposition: Home or Self Care 07/10/2025 Refill [facility] Transplantation and Clinical Regeneration in [place], [place] [address] [place] [phone] Mohinder Turk M.D. Med Refill 06/17/2025 8:20 AM CDT - 06/17/2025 11:59 PM CDT Hospital Encounter Department of Laboratory Medicine in [place], [place] [address] [place] [phone] Mohinder Turk M.D. Transplant Lung (HCC) Discharge Disposition: Home or Self Care 05/27/2025 10:00 AM CDT External Outreach Division of Nephrology and Hypertension in [place], [place] [address] [place] [phone] Sherrill Chandra M.D., Ph.D. Hypertensive Chronic Kidney Disease With Stage 1 Through Stage 4 Chronic Kidney Disease, Or Unspecified Chronic Kidney Disease; Chronic Kidney Disease (CKD), Stage 3b Glomerular Filtration Rate (GFR) 30 To 44 (HCC); Anemia; Transplant Lung (HCC) 05/23/2025 Orders Only Division of Nephrology and Hypertension in [place], [place] [address] [place] [address] External, Ordering Provider, Mayda 05/23/2025 Orders Only Division of Nephrology and Hypertension in [place], [place] [address] [place] [address] External, Ordering Provider, Mayda 05/22/2025 9:30 AM CDT - 05/22/2025 11:59 PM CDT Hospital Encounter Department of Radiology in [place], [place] [address] [place] [address] Porter Zamudio M.D. Nodule Skin Discharge Disposition: Home or Self Care 05/22/2025 8:20 AM CDT - 05/22/2025 9:29 AM CDT Hospital Encounter Department of Laboratory Medicine in [place], [place] [address] [place] [address] Mohinder Turk M.D. Transplant Lung (HCC) Discharge Disposition: Home or Self Care 05/22/2025 Results Follow-Up [facility] Clinical [facility] in [place], [place] [address] [place] [address] Porter Zamudio M.D. US Chest from Last [...] drink = 0.6 oz pur e alcohol) [facility] Utilities Answer Date Recorded In the [...] your living situation today? I have a [facility] place to live 12/26/2024 Education Answer Date Recorded What is the highest level of school you have completed or the highest degree you have received? 12th grade 03/18/2022 Sex and Gender Information Value Date Recorded Sex Assigned at Male 02/28/2022 1:12 PM CDT Legal Sex Male 4:43 PM MICROFILM TECHNICIAN Gender Identity Male 05/03/2018 12:46 PM CDT [...] st Contact Info) Description 08/19/2025 8:10 AM MICROFILM TECHNICIAN Appointment Department of Laboratory Medicine in [address] [address] Mohinder Turk M.D. [address] [place] [phone] 09/16/2025 8:20 AM MICROFILM TECHNICIAN Appointment Department of Laboratory Medicine in [address] [address] Mohinder Turk M.D. [address] [place] [phone] 10/21/2025 8:20 AM MICROFILM TECHNICIAN Appointment Department of Laboratory Medicine in [address] [address] Mohinder Turk M.D. [address] [place] [phone] 11/18/2025 8:20 AM CDT Appointment Department of Laboratory Medicine in [address] [address] Mohinder Turk M.D. [address] [place] [address] Health Maintenance Due Date Last Done Comments [...] this topic Medical Devices Implanted Type Area Central Supply Manager Device Identifier Shelf Expiration Date Model / Serial / Lot Hylrnds Rstyl 1ml - [id number] Implanted:Qty: 1 on 05/19/2022 by Sesar Hill M.D. at [facility] Bone or Tissue Left: Vocal Cord QMed Maria D 09/10/2024 [id number] / Description:0.8ml injected Hylrnds Rstyl 1ml - [id number] Implanted:Qty: 1 on 09/29/2022 by Sesar Hill M.D. at [facility] Bone or Tissue QMed Maria D 10/11/20241130411 / Clp Hrzn Ti 6 Clp Lg Orng - [id number] Implanted:Qty: 8 on 05/09/2022 by Barry Bolaños M.D., M.B.A. at [facility] Hardware e.g. pins/screws /rods Chest [employer] [id number] / / Wax Bn Hmst 2.5gr - [id number] Implanted:Qty: 1 on 05/09/2022 by Barry Bolaños M.D., M.B.A. at [facility] Hardware e.g. pins/screws /rods Sternum Ethicon [id number] / / Clp Hrzn Ti 6 Clp Md Ryan - [id number] Implanted:Qty: 4 on 05/09/2022 by Barry Bolaños M.D., M.B.A. at [facility] Hardware e.g. pins/screws /rods Chest [employer] [id number] / / Cbl Cls Zipfix Tss Strnl Ndl - [id number] Implanted:Qty: 1 on 05/09/2022 by Barry Bolaños M.D., M.B.A. at [facility] Hardware e.g. pins/screws /rods Chest Depuy Synthes 1.20S / / Cbl Cls Zipfix Tss Strnl Ndl - [id number] Implanted:Qty: 1 on 05/09/2022 by Barry Bolaños M.D., M.B.A. at [facility] Hardware e.g. pins/screws /rods Chest Depuy Synthes 1.20S / / Scrw Str St Fthrd Gld 2.4x16 - [id number] Implanted:Qty: 8 on 05/09/2022 by Kenneth Jacome M.D. at [facility] Hardware e.g. pins/screws /rods Chest Ney Biomet 73-2416 / / Plt Strnm Str Ryan 4h 2.4 - [id number] Implanted:Qty: 2 on 05/09/2022 by Kenneth Jacome M.D. at [facility] Hardware e.g. pins/screws /rods Chest Ney Biomet 73-2636 / / Bloc Synth Jacqueline Frm Lg 1.5x4x7 - [id number] Implanted:Qty: 1 on 05/18/2023 by Nancy Sanders M.D. at [facility] Hardware e.g. pins/screws /rods [employer] 10/25/2024 [id number] Right Hip Implanted:01/09 (Quantity not on file) Hip Implant Right: Hip Description:Device Status Te xt - Hip Imp. Hip replacement February 2016. Procedures Procedure Name Priority Date/Time Associated Diagnosis Comments POTASSIUM, S/P Routine 08/04/2025 10:00 AM MICROFILM TECHNICIAN Transplant Lung (HCC) Hyperkalemia TACROLIMUS LEVEL, B Routine 07/22/2025 8:31 AM MICROFILM TECHNICIAN Transplant Lung (HCC) MAGNESIUM, S Routine 07/22/2025 8:31 AM MICROFILM TECHNICIAN Transplant Lung (HCC) CBC WITH DIFFERENTIAL, B Routine 07/22/2025 8:31 AM MICROFILM TECHNICIAN Transplant Lung (HCC) BASIC METABOLIC PANEL, S/P Routine 07/22/2025 8:31 AM MICROFILM TECHNICIAN Transplant Lung (HCC) TACROLIMUS LEVEL, B Routine [...] Maintenance Results * Potassium (08/04/2025 10:00 AM MICROFILM TECHNICIAN) Potassium, P 4.2 3.6 - 5.2 mmol/L 08/04/2025 1:35 PM MICROFILM TECHNICIAN OWAT Blood (Blood, Venous) 08/04/2025 10:00 AM MICROFILM TECHNICIAN 08/04/2025 1:02 PM MICROFILM TECHNICIAN us Frank Hastings M.D. LAB BLOOD ADD-ON Final Result [facility] [address] [place] [address], [facility] OWAT [facility] [place] [address] [place] [address] * Tacrolimus, Trough (07/22/2025 8:31 AM MICROFILM TECHNICIAN) Only the most recent of3 resultswithin the time period is included. Tacrolimus, Trough 7.3 5.0-15.0 (Trough) ng/mL 07/23/2025 9:58 AM MICROFILM TECHNICIAN [facility] Comment: ----ADDITIONAL INFORMATION---- Target steady-state trough concentrations vary depending on the type of transplant, concomitant immunosuppression, clinical/institutional protocols, and time post-transplant. Results should be interpreted in conjunction with this clinical information and any physical signs/symptoms of rejection/toxicity. Testing performed by Liquid Chromatography-Tandem Mass Spectrometry (LC-MS/MS). This test was developed and its performance characteristics determined by [facility] in a manner consistent with CLIA requirements. This test has not been cleared or approved by the U.S. Food and Drug Administration. Blood (Blood, Venous) 07/22/2025 8:31 AM MICROFILM TECHNICIAN 07/23/2025 7:15 AM MICROFILM TECHNICIAN us Mohinder Turk M.D. LAB BLOOD NON ADD-ON Final R esult [facility] [address] [place] [address] [facility] [address] [place] [address] [place] [address] * (ABNORMAL) CBC with Differential, Blood (07/22/2025 8:31 AM MICROFILM TECHNICIAN) Only the most recent of4 resultswithin the time period is included. Hemoglobin 12.0(L) 13.2 - 16.6 g/dL 07/22/2025 10:45 AM MICROFILM TECHNICIAN OWAT Hematocrit 36.2(L) 38.3 - 48.6 % 07/22/2025 10:45 AM MICROFILM TECHNICIAN OWAT Erythrocytes 3.80(L) 4.35 - 5.65 x10(12)/L 07/22/2025 10:45 AM MICROFILM TECHNICIAN OWAT MCV 95.3 78.2 - 97.9 fL 07/22/2025 10:45 AM MICROFILM TECHNICIAN OWAT RBC Distrib Width 15.0(H) 11.8 - 14.5 % 07/22/2025 10:45 AM MICROFILM TECHNICIAN OWAT Platelet Count 146 135 - 317 x10(9)/L 07/22/2025 10:45 AM MICROFILM TECHNICIAN OWAT Leukocytes 7.4 3.4 - 9.6 x10(9)/L 07/22/2025 10:45 AM MICROFILM TECHNICIAN OWAT Neutrophils 5.75 1.56 - 6.45 x10(9)/L 07/22/2025 10:45 AM MICROFILM TECHNICIAN OWAT Lymphocytes 0.71(L) 0.95 - 3.07 x10(9)/L 07/22/2025 10:45 AM MICROFILM TECHNICIAN OWAT Monocytes 0.76 0.26 - 0.81 x10(9)/L 07/22/2025 10:45 AM MICROFILM TECHNICIAN OWAT Eosinophils 0.15 0.03 - 0.48 x10(9)/L 07/22/2025 10:45 AM MICROFILM TECHNICIAN OWAT Basophils <0.03 0.01 - 0.08 x10(9)/L 07/22/2025 10:45 AM MICROFILM TECHNICIAN OWAT Blood (Blood, Venous) 07/22/2025 8:31 AM MICROFILM TECHNICIAN 07/22/2025 10:35 AM MICROFILM TECHNICIAN us Mohinder Turk M.D. LAB BLOOD ADD-ON Final Resul t Performing Organization Address City/[facility]/ZIP Co de Phone Number [facility] [address] [place] [address], [facility] OWAT [facility] in [place] [address] [address] * Magnesium (07/22/2025 8:31 AM MICROFILM TECHNICIAN) Only the most recent of3 resultswithin the time period is included. Magnesium, P 2.1 1.7 - 2.3 mg/dL 07/22/2025 11:04 AM MICROFILM TECHNICIAN OWAT Blood (Blood, Venous) 07/22/2025 8:31 AM MICROFILM TECHNICIAN 07/22/2025 10:44 AM MICROFILM TECHNICIAN us Mohinder Turk M.D. LAB BLOOD ADD-ON Final Resul t [facility] [address] [place] [address], [place] OWAT [facility] in [place] [address] [place] [address] * (ABNORMAL) Basic Metabolic Panel (07/22/2025 8:31 AM MICROFILM TECHNICIAN) Only the most recent of3 resultswithin the time period is included. Potassium, P 5.3(H) 3.6 - 5.2 mmol/L 07/22/2025 11:04 AM MICROFILM TECHNICIAN OWAT Sodium, P 137 135 - 145 mmol/L 07/22/2025 11:04 AM MICROFILM TECHNICIAN OWAT Chloride, P 102 98 - 107 mmol/L 07/22/2025 11:04 AM MICROFILM TECHNICIAN OWAT Bicarbonate, P 23 22 - 29 mmol/L 07/22/2025 11:04 AM MICROFILM TECHNICIAN OWAT Anion Gap, P 12 7 - 15 07/22/2025 11:04 AM MICROFILM TECHNICIAN OWAT BUN (Blood Urea Nitrogen), P 34(H) 8 - 24 mg/dL 07/22/2025 11:04 AM MICROFILM TECHNICIAN OWAT Creatinine 1.80(H) 0.74 - 1.35 mg/dL 07/22/2025 11:04 AM MICROFILM TECHNICIAN OWAT Estimated GFR (eGFR) 38(L) >=60 mL/min/BSA 07/22/2025 11:04 AM MICROFILM TECHNICIAN OWAT Comment: Estimated GFR calculated using the 2020 CKD_EPI creatinine equation. Calcium, Total, P 9.4 8.8 - 10.2 mg/dL 07/22/2025 11:04 AM MICROFILM TECHNICIAN OWAT Glucose, P 111 70 - 140 mg/dL 07/22/2025 11:04 AM MICROFILM TECHNICIAN OWAT Blood (Blood, Venous) 07/22/2025 8:31 AM MICROFILM TECHNICIAN 07/22/2025 10:44 AM MICROFILM TECHNICIAN us Mohinder Turk M.D. LAB BLOOD ADD-ON Final Resul t [facility] [address] [place] [address], [facility] OWAT [facility] in [place] [address] [place] [address] * EXT Urinalysis with Microscopy, Urine (05/23/2025 8:05 AM CDT) Pathologist [facility] EXT Color Yellow Yellow [facility] EXT Appearance, Urine Clear Clear [facility] EXT Glucose Qualitative, Urine Negative Negative [facility] EXT Bilirubin, Urine Negative Negative [facility] EXT Ketones, POCT, Urine Negative Negative [facility] EXT Specific [place], POCT, Urine 1.025 1.000 - 1.030 [facility] EXT Blood, Urine Negative Negative [facility] EXT pH, Random, Urine 5.5 5.0 - 8.5 [facility] EXT Protein, Urine Negative Negative [facility] EXT Urobilinogen, Urine 0.2 0.2 - 1.0 [facility] EXT Nitrite, Urine Negative Negative [facility] EXT Leukocyte Esterase, Urine Negative Negative [facility] 05/23/2025 8:05 AM CDT Narrative [facility] - 05/23/2025 11:23 AM CDT Source result document attached to Order Number [id number] (CBC WITH DIFFERENTIAL, B) dated 05/23/2025. External results verified in Extract by Ceci Abbott on 05/23/2025 at 11:19 AM. us Ordering Provider External M.Vivian LAB URINE ORDERA BLES Final Result [facility] [address] [place] [address] * (ABNORMAL) Renal Function Panel (05/23/2025 8:03 AM CDT) Pathologist [facility] EXT Sodium 140 135 - 149 mmol/L [facility] EXT Potassium 4.6 3.6 - 5.1 mmol/L [facility] EXT Chloride 109 96 - 114 mmol/L [facility] EXT CO2 24 20 - 32 mmol/L [facility] EXT Anion Gap 7 7 - 15 mEq/L [facility] EXT BUN (Blood Urea Nitrogen) 43(H) 7 - 30 mg/dL [facility] EXT Creatinine 1.9(H) 0.5 - 1.5 mg/dL [facility] EXT Estimated GFR (eGFR) 36 ml/min [facility] EXT Calcium, Total 9.1 8.4 - 10.6 mg/dL [facility] EXT Glucose 119(H) 60 - 115 mg/dL [facility] EXT Albumin 4.0 3.3 - 5.0 g/dL [facility] EXT Phosphorus (Inorganic), S 3.6 2.5 - 4.5 mg/dL [facility] 05/23/2025 8:03 AM CDT Narrative [facility] - 05/23/2025 1:24 PM CDT External results verified in Extract by Nataly Grubbs on 05/23/2025 at 01:20 PM. us Ordering Provider External M.D. LAB BLOOD ADD-ON Final Result Performing Organization Address City/[facility] Health/ZIP Co de Phone Number [facility] [address] [place] [address] * Albumin, Random, Urine (05/23/2025 8:03 AM CDT) EXT Creatinine, Urine 160.4 mg/dL [facility] EXT Microalbumin-R andom, U 1 mg/dL [facility] 05/23/2025 8:03 AM CDT Narrative [place] [facility] - 05/23/2025 11:23 AM CDT Source result document attached to Order Number [id number] (CBC WITH DIFFERENTIAL, B) dated 05/23/2025. External results verified in Extract by Ceci Abbott on 05/23/2025 at 11:20 AM. us Ordering Provider External M.D. LAB URINE ORDERA BLES Final Result [facility] LOCATION GROUP NA [facility] [address] [place] [address], [facility] [phone] * US Chest (05/22/2025 10:21 AM CDT) [...] M.D. LAB BLOOD ADD-ON Final Resul t [facility] [address] [place] [address], [facility] - [facility] [address] [place] [address] * S-TSH (Thyroid-Stimulating Hormone - Sensitive) (04/15/2025 8:10 AM CDT) TSH, Sensitive 4.0 0.3 - 4.2 mIU/L 04/15/2025 9:59 AM CDT DTL Blood (Blood, Venous) 04/15/2025 8:10 AM CDT 04/15/2025 8:17 AM CDT us Frank Hastings M.D. LAB BLOOD ADD-ON Final Result [facility] [address] [place] [address], [facility] [address] [address] * (ABNORMAL) Hemoglobin A1c (04/15/2025 8:10 AM [...] Hastings M.D. LAB BLOOD ADD-ON Final Result [facility] [address] [place] [address], [facility] [address] [address] * US Abdomen Complete (03/02/2022 3:36 PM [...] Last Indicated Protective Environment 12/16/2022 3 [facility] [place] [place] [id number] Advance Directives For more information, please contact: [phone] * Full Code (Latest Code Status on [...] Answer Comments Full Code: Discussed Care Teams Hairpiece Stylist Relationship Specialty Start Date End Date Elsewhere, Pcp PCP - General Family Medicine 05/18/23 Jodie Santiago Bingo CheckerLegal Instructor Review Committee, Other 05/31/22 [facility] Laboratory Medicine 08/09/22 Dr Shilpi Barry. [facility] Cardiovascular Diseases 01/15/24
[2025-08-09 00:51] LABS: Chloride* 103 mmol/L (96-114)
[2025-08-09 00:52] LABS: Potassium* 4.3 mmol/L (3.6-5.1); Sodium* 139 mmol/L (135-149)
[2025-08-09 00:54] LABS: Blood Urea Nitrogen* 37 mg/dL (7-30); Creatinine* 1.8 mg/dL (0.5-1.5); Est. Creatinine Clearance* 35.49; Estimated Glomerular Filt Rate 38 ml/min
[2025-08-09 00:55] LABS: Anion Gap 17 mEq/L (7-15); Calcium* 9.8 mg/dL (8.4-10.6); Carbon Dioxide* 19 mmol/L (20-32); Glucose* 162 mg/dL (60-115)
[2025-08-09 01:10] VITALS: BP 186/93; PULSE 68; RESP 19; O2SAT 99
[2025-08-09 01:13] LABS: Appearance Urine Turbid (Clear)
== END 2025-08-09 01:56 | disposition home or self-care (01) ==
PROVIDERS: Emergency Provider Emergency Medicine; PCP Family Medicine
DX: N20.1 Calculus of ureter (principal)
CPT/HCPCS: 36415; 74176; 80048; 81001; 83605; 85025; 86140; 96374; 96375; 96376; 99284; J1171; J2405; J7030

== ENCOUNTER 2025-08-19 10:19 | Outpatient (CLI) | payer OTHER, SELFPAY | END 2025-08-19 10:20 | disposition home or self-care (01) | LOC: NFLDREF 08-25 18:30 | PROVIDERS: PCP Family Medicine; Referring Provider Family Medicine; Visit Provider Family Medicine | DX: D64.9 Anemia, unspecified (principal); E03.9 Hypothyroidism, unspecified; E11.9 Type 2 diabetes mellitus without complications; R53.83 Other fatigue | CPT/HCPCS: 84443 ==